=== PATIENT | male | born 1935 | race Caucasian/White ===

== ENCOUNTER 2016-07-15 09:53 | Outpatient (RCR) | payer MEDICARE ==
[~2016-07-15 09:53] MED LIST: AC325T PO; ASP325TEC PO; ATEN50TA PO; CEPH-507 PO; HYDR-3583 PO; LOSA25TA21 PO; LOSA25TA5 PO; LUTE1CAP4 PO; NIAC250T17 PO; NICIAN; PANT40TA3 PO; PNT40TEC PO; PRAV20TA3 PO; [UNRECOGNIZED DRUG - OTHER]
== END 2016-10-13 | disposition home or self-care (01) ==
LOC: DSME 09:53
PROVIDERS: ATTEND Internal Medicine
DX: E11.40 Type 2 diabetes mellitus with diabetic neuropathy, unspecified (principal); E11.65 Type 2 diabetes mellitus with hyperglycemia

== ENCOUNTER → 2017-03-16 | Outpatient (CLI) | payer MEDICARE ==
[~2017-03-16] MED LIST changes: +CATHETER FLUSH 10 ML SYR IV PRN; +REGADENOSON 0.4 MG/5 ML SYR (LEXISCAN) IV ONE
[2017-03-16 08:59] VITALS: BP 120/90
[2017-03-16 09:01] VITALS: BP 121/81
[2017-03-16 09:04] VITALS: BP 126/80
--- NOTE | 2017-03-17 12:26 | STRESS TEST ---
DATE OF SERVICE: 03/16/2017 RESTING AND POST REGADENOSON TECHNETIUM [address] IMAGING ORDERING PHYSICIAN: Dr. Luis. PRIMARY PHYSICIAN: Dr. Preciado. CLINICAL DIAGNOSES: Coronary artery disease, ischemic cardiomyopathy, hypertension, hyperlipidemia. Baseline images were carried out after injection of 10.71 mCi Technetium 99 Tetrofosmin. This was followed by 0.4 mg Regadenoson and 29.3 mCi Technetium 99 Tetrofosmin for stress imaging. The electrocardiogram showed sinus rhythm with old anteroseptal myocardial infarction at baseline. The electrocardiogram did not change significantly with the regadenoson infusion. The patient noted flushing and abdominal cramping following regadenoson infusion, which resolved in a few minutes of cessation of the injection. Review of images at rest and following stress shows a fairly large anteroapical perfusion defect. There is anteroapical akinesis. Left ventricular ejection fraction is calculated to be 35%. Left ventricular end diastolic volume is 71 mL. TID is absent (0.98). CONCLUSION: 1. This study indicates anteroapical infarction without significant ischemia. 2. Anteroapical akinesis. 3. Left ventricular ejection fraction is calculated to be 35%. Job ID: [id number] DocumentID: [id number] Dictated Date: 03/16/2017 10:30:05 Psychiatry Teacher Date: 03/16/2017 12:59:42 Dictated By: DORCAS LUIS MD, MA, FACP, FACC,
== END ==
LOC: CARD 07:28
PROVIDERS: ATTEND Internal Medicine Cardiovascular Disease
DX: I25.10 Atherosclerotic heart disease of native coronary artery without angina pectoris (principal); I65.23 Occlusion and stenosis of bilateral carotid arteries; I10 Essential (primary) hypertension; E78.4 Other hyperlipidemia; I25.5 Ischemic cardiomyopathy; Z72.0 Tobacco use
CPT/HCPCS: 78452; 93017

== ENCOUNTER → 2017-03-27 | Outpatient (CLI) | payer MEDICARE ==
[~2017-03-27] MED LIST changes: -CATHETER FLUSH 10 ML SYR IV PRN; -REGADENOSON 0.4 MG/5 ML SYR (LEXISCAN) IV ONE
== END ==
LOC: CARD 13:57
PROVIDERS: ATTEND Internal Medicine Cardiovascular Disease
DX: I25.10 Atherosclerotic heart disease of native coronary artery without angina pectoris (principal); I65.23 Occlusion and stenosis of bilateral carotid arteries; I10 Essential (primary) hypertension; I25.5 Ischemic cardiomyopathy; E78.4 Other hyperlipidemia; Z72.0 Tobacco use
CPT/HCPCS: 93306

== ENCOUNTER → 2017-08-03 | Outpatient (CLI) | payer MEDICARE ==
--- NOTE | 2017-08-03 10:28 | Diagnostic Imaging Report ---
PROCEDURE: CT abdomen and pelvis without contrast. TECHNIQUE: Multiple contiguous axial images were obtained through the abdomen and pelvis without the use of intravenous contrast. INDICATION: Hematuria. Comparison is made to study of 02/21/2012. FINDINGS: Unenhanced images of the liver, gallbladder and spleen are stable and unremarkable. There is diffuse fatty infiltration throughout the pancreas without evidence of inflammation or pancreatic mass. Adrenal glands are also stable and unremarkable. Multiple nonobstructing renal calculi are again seen, bilaterally. Largest stones are in the inferior poles measuring up to 0.6 cm in size. There is no evidence of hydronephrosis. No ureteric stone is seen. The appendix has a normal appearance. There is moderate aortoiliac atherosclerotic calcification. No free fluid is seen in the abdomen or pelvis. There is an irregular mural based lesion along the left bladder wall reaching approximately 3.5 x 1.6 cm. Calcification is again noted within the prostate gland. IMPRESSION: Persistent nonobstructing bilateral renal calculi without evidence of ureteric stone. Eccentric filling defect within the urinary bladder to the left of midline and is highly suspicious for mucosal tumor. Hematoma could have this appearance, however, consideration should be given to cystoscopy and possible biopsy. Dictated by: Dictated on workstation # [id number]
== END ==
LOC: RAD 09:23
PROVIDERS: ATTEND Urology
DX: N20.0 Calculus of kidney (principal)
CPT/HCPCS: 74176

== ENCOUNTER 2017-08-11 05:34 | Outpatient (CLI) | payer MEDICARE ==
[~2017-08-11] VITALS: Ht 162.6 cm; Wt 66.2 kg
[2017-08-11] MEDS ORDERED: ASPI-808 PO (12:46)
[2017-08-11] MEDS ORDERED: LUTE1CAP4 PO (12:46)
== END 2017-08-11 12:56 ==
LOC: PREOP 05:34
PROVIDERS: ATTEND Urology
DX: Z01.818 Encounter for other preprocedural examination (principal); D49.4 Neoplasm of unspecified behavior of bladder

== ENCOUNTER 2017-08-15 06:50 | Day surgery (SDC) | payer MEDICARE ==
[~2017-08-15] VITALS: Ht 162.6 cm; Wt 66.2 kg
[~2017-08-15 06:50] MED LIST changes: +ASPI-808 PO
--- OUTSIDE RECORDS SUMMARY | 2017-08-15 06:54 | XMS REPORT | Continuity of Care Document ---
Author Author [facility] Organization [facility] Address Unknown Phone Unavailable Allergies Active Description Code Type Severity Reaction Onset Reported/Identified Relationship to Patient Clinical Status Yes No Known Drug Allergies [id number] Drug Allergy Unknown N/A 02/21/2012 Medications There is no data. Problems Date Dx Coded Attending Type Code Diagnosis Diagnosed By 01/13/2010 Ot 562.10 01/13/2010 Ot V12.72 01/13/2010 Ot V67.09 02/21/2012 Ot 567.9 PERITONITIS NOS 02/21/2012 Ot 789.05 ABDOMINAL PAIN, PERIUMBILIC 04/03/2012 Ot 553.1 UMBILICAL HERNIA 04/03/2012 Ot 568.0 PERITONEAL AIYEPAUWK-LQMR-YE/INF 09/09/2012 Ot 272.4 HYPERLIPIDEMIA NEC/NOS 09/09/2012 Ot 342.90 UNSPEC HEMIPLEGIA HEMIPARESIS UNSPEC S 09/09/2012 Ot 414.01 CORONARY ATHEROSCLEROSIS OF [place] CORON 09/09/2012 Ot 428.0 CONGESTIVE HEART FAILURE NOS 09/09/2012 Ot 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 ARTERY OCCLUSION W O CEREBRAL IN 09/09/2012 Ot 434.91 CEREBRAL ART OCCLUSION NOS W CEREBRAL IN 09/09/2012 Ot 458.29 OTHER IATROGENIC HYPOTENSION 09/09/2012 Ot 715.90 OSTEOARTHROS NOS-UNSPEC 09/09/2012 Ot 781.94 FACIAL WEAKNESS 09/09/2012 Ot 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 09/09/2012 Ot V15.82 HISTORY OF TOBACCO USE 09/14/2012 Ot 277.7 DYSMETABOLIC SYNDROME X 09/14/2012 Ot 401.9 HYPERTENSION NOS 09/14/2012 Ot 414.01 CORONARY ATHEROSCLEROSIS OF [place] CORON 09/14/2012 Ot 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 DIS NEC 09/14/2012 Ot 428.0 CONGESTIVE HEART FAILURE NOS 09/14/2012 Ot 438.20 LATE EFF- CEREBR DIS,HEMIPLEGIA AFFECTING 09/14/2012 Ot 438.89 OTH LATE EFFECT-CEREBROVASCULAR DISEASE 09/14/2012 Ot 530.81 ESOPHAGEAL REFLUX 09/14/2012 Ot 564.00 UNSPEC CONSTIPATION 09/14/2012 Ot 781.2 ABNORMALITY OF GAIT 09/14/2012 Ot 790.29 OTHER ABNORMAL GLUCOSE 09/14/2012 Ot V57.1 PHYSICAL THERAPY NEC 09/14/2012 Ot V57.21 ENCOUNTER FOR OCCUPATIONAL THERAPY 12/20/2012 ROSANGELA DEMARCO MD Ot 438.89 OTH LATE EFFECT-CEREBROVASCULAR DISEASE 12/20/2012 ROSANGELA DEMARCO MD Ot 728.87 MUSCLE WEAKNESS (GENERALIZED) 12/20/2012 ROSANGELA DEMARCO MD Ot V57.21 ENCOUNTER FOR OCCUPATIONAL THERAPY 01/30/2013 ROSANGELA DEMARCO MD Ot 438.89 OTH LATE EFFECT-CEREBROVASCULAR DISEASE 01/30/2013 ROSANGELA DEMARCO MD Ot 728.87 MUSCLE WEAKNESS (GENERALIZED) 01/30/2013 ROSANGELA DEMARCO MD Ot V57.21 ENCOUNTER FOR OCCUPATIONAL THERAPY 09/15/2014 Ot 592.0 09/15/2014 Ot 433.10 09/15/2014 Ot 412 09/15/2014 Ot 414.00 09/15/2014 Ot 397.0 09/15/2014 Ot 424.0 09/15/2014 Ot 425.4 09/15/2014 Ot 553.1 09/15/2014 Ot V72.81 09/15/2014 Ot V74.8 09/15/2014 Ot 433.10 09/15/2014 Ot 433.30 09/15/2014 Ot 433.10 09/15/2014 Ot 786.05 09/15/2014 Ot V72.63 09/15/2014 Ot V72.83 09/15/2014 Ot V74.8 10/14/2014 BAIMA, AUBREY L POLICEW[employer]AN Ot 272.4 10/14/2014 BAIMA, AUBREY L POLICEWOMAN Ot 305.1 10/14/2014 BAIMA, AUBREY L POLICEWOMAN Ot 401.9 10/14/2014 BAIMA, AUBREY L POLICEWOMAN Ot 414.00 10/14/2014 BAIMA, AUBREY L POLICEWOMAN Ot 414.8 10/14/2014 BAIMA, AUBREY L POLICEWOMAN Ot 433.10 10/31/2014 BAIMA, AUBREY L POLICEWOMAN Ot 272.4 10/31/2014 BAIMA, AUBREY L POLICEWOMAN Ot 305.1 10/31/2014 BAIMA, AUBREY L POLICEWOMAN Ot 401.9 10/31/2014 BECKAUBREY POLICEWOMAN Ot 414.00 10/31/2014 BECKAUBREY Mena POLICEWOMAN Ot 414.8 10/31/2014 AUBREY SOLARES POLICEWOMAN Ot 433.10 01/02/2015 TARAN CARRENO MD Ot 562.10 DIVERTICULOSIS COLON (W/O MENT OF HEMORR 01/02/2015 TARAN CARRENO MD Ot 569.0 ANAL RECTAL POLYP 01/02/2015 TARAN CARRENO MD Ot V16.0 FAMILY HX-GI MALIGNANCY 01/02/2015 TARAN CARRENO MD, Ot V76.51 SCREEN MAL NEOP-COLON 06/25/2015 ROSANGELA DEMARCO MD, Ot A41.51 SEPSIS DUE TO ESCHERICHIA COLI [E. COLI] 06/25/2015 ROSANGELA DEMARCO MD, Ot E86.0 DEHYDRATION 06/25/2015 ROSANGELA DEMARCO MD Ot F17.200 NICOTINE DEPENDENCE, UNSPECIFIED, UNCOMP 06/25/2015 ROSANGELA DEMARCO MD Ot I12.9 HYPERTENSIVE CHRONIC KIDNEY DISEASE W ST 06/25/2015 ROSANGELA DEMARCO MD, Ot I25.2 OLD MYOCARDIAL INFARCTION 06/25/2015 ROSANGELA DEMARCO MD, Ot I42.9 CARDIOMYOPATHY, UNSPECIFIED 06/25/2015 ROSANGELA DEMARCO MD, Ot I73.9 PERIPHERAL VASCULAR DISEASE, UNSPECIFIED 06/25/2015 ROSANGELA DEMARCO MD, Ot K21.9 GASTRO-ESOPHAGEAL REFLUX DISEASE WITHOUT 06/25/2015 ROSANGELA DEMARCO MD, Ot N17.9 ACUTE KIDNEY FAILURE, UNSPECIFIED 06/25/2015 ROSANGELA DEMARCO MD, Ot N18.9 CHRONIC KIDNEY DISEASE, UNSPECIFIED 06/25/2015 ROSANGELA DEMARCO MD Ot N30.00 ACUTE CYSTITIS WITHOUT HEMATURIA 06/25/2015 ROSANGELA DEMARCO MD, Ot S50.02XA CONTUSION OF LEFT ELBOW, INITIAL ENCOUNT 06/25/2015 ROSANGELA DEMARCO MD Ot W19.XXXA UNSPECIFIED FALL, INITIAL ENCOUNTER 06/25/2015 ROSANGELA DEMARCO MD Ot Y92.002 BATHRM OF [facility] NON-INSTITUT RESDNCE SNGL 06/25/2015 ROSANGELA DEMARCO MD, Ot Z86.73 PRSNL HX OF TIA (TIA), AND CEREB INFRC W 08/24/2015 ROSANGELA DEMARCO MD, Ot N39.0 07/15/2016 Ot 397.0 TRICUSPID VALVE DISEASE 07/15/2016 Ot 424.0 MITRAL VALVE DISORDER 07/15/2016 Ot 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.4 PRIM CARDIOMYOPATHY NEC 07/15/2016 Ot 553.1 UMBILICAL HERNIA 07/15/2016 Ot V72.81 EXAM-PRE- OPERATIVE CARDIOVASCULAR 07/15/2016 Ot V74.8 SCREEN- BACTERIAL DIS NEC 07/15/2016 Ot 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 ARTERY OCCLUSION W O CEREBRAL IN 07/15/2016 Ot 433.30 MULT BILTRAL ARTERY OCCLUSION WO CEREBRA 07/15/2016 Ot 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 ARTERY OCCLUSION W O CEREBRAL IN 07/15/2016 Ot 786.05 SHORTNESS OF BREATH 07/15/2016 Ot V72.63 PRE- PROCEDURAL LABORATORY EXAMINATION 07/15/2016 Ot V72.83 EXAM PRE- OPERATIVE NEC 07/15/2016 Ot V74.8 SCREEN- BACTERIAL DIS NEC 07/15/2016 BAIMA, AUBREY L [employer] Ot 272.4 HYPERLIPIDEMIA NEC/NOS 07/15/2016 BAIMA, AUBREY L [employer] Ot 305.1 TOBACCO USE DISORDER 07/15/2016 BAIMA, AUBREY L [employer] Ot 401.9 HYPERTENSION NOS 07/15/2016 BAIMA, AUBREY L [employer] Ot 414.00 CORON ATHEROSCLER NOS TYPE VESSEL, NATIV 07/15/2016 BAIMA, AUBREY L [employer] Ot 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 DIS NEC 07/15/2016 BAIMA, AUBREY L [employer] Ot 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 ARTERY OCCLUSION W O CEREBRAL IN 07/15/2016 WAI GAVIN, TARAN Ot V72.84 EXAM PRE-OPERATIVE NOS 07/15/2016 NILAM GAVIN, ROSANGELA Connors Ot N39.0 URINARY TRACT INFECTION, SITE NOT SPECIF 07/15/2016 Ot 397.0 TRICUSPID VALVE DISEASE 07/15/2016 Ot 424.0 MITRAL VALVE DISORDER 07/15/2016 Ot 425.4 PRIM CARDIOMYOPATHY NEC 07/15/2016 Ot 553.1 UMBILICAL HERNIA 07/15/2016 Ot V72.81 EXAM-PRE- OPERATIVE CARDIOVASCULAR 07/15/2016 Ot V74.8 SCREEN- BACTERIAL DIS NEC 07/15/2016 Ot 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 ARTERY OCCLUSION W O CEREBRAL IN 07/15/2016 Ot 433.30 MULT BILTRAL ARTERY OCCLUSION WO CEREBRA 07/15/2016 Ot 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 ARTERY OCCLUSION W O CEREBRAL IN 07/15/2016 Ot 786.05 SHORTNESS OF BREATH 07/15/2016 Ot V72.63 PRE- PROCEDURAL LABORATORY EXAMINATION 07/15/2016 Ot V72.83 EXAM PRE- OPERATIVE NEC 07/15/2016 Ot V74.8 SCREEN- BACTERIAL DIS NEC 07/15/2016 BAIAUBREY KENYON L POLICEWOMAN Ot 272.4 HYPERLIPIDEMIA NEC/NOS 07/15/2016 BAIKOSTAS AUBREY L POLICEWOMAN Ot 305.1 TOBACCO USE DISORDER 07/15/2016 BAIKOSTAS AUBREY L POLICEW[employer]AN Ot 401.9 HYPERTENSION NOS 07/15/2016 BAIMA AUBREY L [employer] Ot 414.00 CORON ATHEROSCLER NOS TYPE VESSEL, NATIV 07/15/2016 BAIKOSTAS AUBREY L POLICEW[employer]AN Ot 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 DIS NEC 07/15/2016 BAIKOSTAS AUBREY L POLICEWOMAN Ot 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 ARTERY OCCLUSION W O CEREBRAL IN 07/15/2016 WAI GAVIN, TARAN Ot V72.84 EXAM PRE-OPERATIVE NOS 07/15/2016 ROSANGELA DEMARCO MD, Ot N39.0 URINARY TRACT INFECTION, SITE NOT SPECIF 09/06/2016 ROSANGELA DEMARCO MD Ot 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 N 09/06/2016 ROSANGELA DEMARCO MD, Ot E11.65 TYPE 2 DIABETES MELLITUS WITH HYPERGLYCE 10/03/2016 ROSANGELA DEMARCO MD, Ot 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 N 10/03/2016 ROSANGELA DEMARCO MD, Ot E11.65 TYPE 2 DIABETES MELLITUS WITH HYPERGLYCE 10/07/2016 ROSANGELA DEMARCO MD, Ot 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 N 10/07/2016 ROSANGELA DEMARCO MD, Ot E11.65 TYPE 2 DIABETES MELLITUS WITH HYPERGLYCE 10/13/2016 ROSANGELA DEMARCO MD, Ot 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 N 10/13/2016 ROSANGELA DEMARCO MD, Ot E11.65 TYPE 2 DIABETES MELLITUS WITH HYPERGLYCE 03/17/2017 MARIUSZ GAVIN FACC, DORCAS FACP CCDS Ot E78.4 OTHER HYPERLIPIDEMIA 03/17/2017 MARIUSZ GAVIN FACC, DORCAS FACP CCDS Ot I10 ESSENTIAL (PRIMARY) HYPERTENSION 03/17/2017 MARIUSZ GAVIN FACC, DORCAS FACP CCDS Ot I25.10 ATHSCL HEART DISEASE OF [place] CORONARY 03/17/2017 MARIUSZ AGVIN FACC, DORCAS FACP CCDS Ot I25.5 ISCHEMIC CARDIOMYOPATHY 03/17/2017 MARIUSZ GAVIN FACC, ALI FACP CCDS Ot I65.23 OCCLUSION AND STENOSIS OF [place] 03/17/2017 MARIUSZ GAVIN FACC, ALI FACP CCDS Ot Z72.0 TOBACCO USE 04/07/2017 MARIUSZ GAVIN FACC, ALI FACP CCDS Ot E78.4 OTHER HYPERLIPIDEMIA 04/07/2017 MARIUSZ GAVIN FACC, ALI FACP CCDS Ot I10 ESSENTIAL (PRIMARY) HYPERTENSION 04/07/2017 MARIUSZ GAVIN FACC, ALI FACP CCDS Ot I25.10 ATHSCL HEART DISEASE OF [place] CORONARY 04/07/2017 MARIUSZ GAVIN FACC, ALI FACP CCDS Ot I25.5 ISCHEMIC CARDIOMYOPATHY 04/07/2017 MARIUSZ GAVIN FACC, ALI FACP CCDS Ot I65.23 OCCLUSION AND STENOSIS OF [place] 04/07/2017 MARIUSZ VAZQUEZC, ALI FACP CCDS Ot Z72.0 TOBACCO USE 04/12/2017 MARIUSZ GAVIN FACC, ALI FACP CCDS Ot E78.4 OTHER HYPERLIPIDEMIA 04/12/2017 MARIUSZ GAVIN FACC, ALI FACP CCDS Ot I10 ESSENTIAL (PRIMARY) HYPERTENSION 04/12/2017 MARIUSZ VAZQUEZ, ALI FACP CCDS Ot I25.10 ATHSCL HEART DISEASE OF [place] CORONARY 04/12/2017 [facility] F[facility] CCDS Ot I25.5 ISCHEMIC CARDIOMYOPATHY 04/12/2017 MARIUSZ VAZQUEZC, ALI FACP CCDS Ot I65.23 OCCLUSION AND STENOSIS OF [place] 04/12/2017 MARIUSZ GAVIN FACC, ALI FACP CCDS Ot Z72.0 TOBACCO USE 04/19/2017 MARIUSZ GAVIN FACC, ALI FACP CCDS Ot E78.4 OTHER HYPERLIPIDEMIA 04/19/2017 MARIUSZ VAZQUEZ, ALI FACP CCDS Ot I10 ESSENTIAL (PRIMARY) HYPERTENSION 04/19/2017 MARIUSZ VAZQUEZ, ALI FACP CCDS Ot I25.10 ATHSCL HEART DISEASE OF [place] CORONARY 04/19/2017 MARIUSZ VAZQUEZC, ALI FACP CCDS Ot I25.5 ISCHEMIC CARDIOMYOPATHY 04/19/2017 MARIUSZ GAVIN FACC, ALI FACP CCDS Ot I65.23 OCCLUSION AND STENOSIS OF [place] 04/19/2017 MARIUSZ VAZQUEZC, ALI FACP CCDS Ot Z72.0 TOBACCO USE 05/01/2017 MARIUSZ VAZQUEZC, ALI FACP CCDS Ot E78.4 OTHER HYPERLIPIDEMIA 05/01/2017 MARIUSZ GAVIN FACC, ALI FACP CCDS Ot I10 ESSENTIAL (PRIMARY) HYPERTENSION 05/01/2017 MARIUSZ GAVIN FACC, ALI FACP CCDS Ot I25.10 ATHSCL HEART DISEASE OF [place] CORONARY 05/01/2017 MARIUSZ GAVIN FACC, ALI FACP CCDS Ot I25.5 ISCHEMIC CARDIOMYOPATHY 05/01/2017 MARIUSZ GAVIN FACLien, ALI FACP CCDS Ot I65.23 OCCLUSION AND STENOSIS OF [place] 05/01/2017 MARIUSZ GAVIN FACC, ALI FACP CCDS Ot Z72.0 TOBACCO USE 08/01/2017 Ot 553.1 UMBILICAL HERNIA 08/01/2017 Ot V72.81 EXAM-PRE- OPERATIVE CARDIOVASCULAR 08/01/2017 Ot V74.8 SCREEN- BACTERIAL DIS NEC 08/01/2017 Ot 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 ARTERY OCCLUSION W O CEREBRAL IN 08/01/2017 Ot 433.30 MULT BILTRAL ARTERY OCCLUSION WO CEREBRA 08/01/2017 Ot 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 ARTERY OCCLUSION W O CEREBRAL IN 08/01/2017 Ot 786.05 SHORTNESS OF BREATH 08/01/2017 Ot V72.63 PRE- PROCEDURAL LABORATORY EXAMINATION 08/01/2017 Ot V72.83 EXAM PRE- OPERATIVE NEC 08/01/2017 Ot V74.8 SCREEN- BACTERIAL DIS NEC 08/01/2017 BAIMA, AUBREY L POL[employer] Ot 272.4 HYPERLIPIDEMIA NEC/NOS 08/01/2017 BAIMA, AUBREY L POLICEWOMAN Ot 305.1 TOBACCO USE DISORDER 08/01/2017 BAIMA, AUBREY L POLICEW[employer]AN Ot 401.9 HYPERTENSION NOS 08/01/2017 BAIMA, AUBREY L POLICEW[employer]AN Ot 414.00 CORON ATHEROSCLER NOS TYPE VESSEL, NATIV 08/01/2017 BAIMA, AUBREY L POLICEW[employer]AN Ot 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 DIS NEC 08/01/2017 BAIMA, AUBREY L POLICEWOMAN Ot 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 ARTERY OCCLUSION W O CEREBRAL IN 08/01/2017 WAI GAVIN, TARAN Ot V72.84 EXAM PRE-OPERATIVE NOS 08/01/2017 NILAM GAVIN, ROSANGELA Connors Ot N39.0 URINARY TRACT INFECTION, SITE NOT SPECIF 08/01/2017 MARIUSZ GAVIN FACC, ALI FACP CCDS Ot E78.4 OTHER HYPERLIPIDEMIA 08/01/2017 MARIUSZ GAVIN FACC, ALI FACP CCDS Ot I10 ESSENTIAL (PRIMARY) HYPERTENSION 08/01/2017 MARIUSZ GAVIN FAC, ALI FACP CCDS Ot I25.10 ATHSCL HEART DISEASE OF [place] CORONARY 08/01/2017 MARIUSZ GAVIN FAC, ALI FACP CCDS Ot I25.5 ISCHEMIC CARDIOMYOPATHY 08/01/2017 MARIUSZ GAVIN FACC, ALI FACP CCDS Ot I65.23 OCCLUSION AND STENOSIS OF [place] 08/01/2017 MARIUSZ GAVIN FACC, ALI FACP CCDS Ot Z72.0 TOBACCO USE 08/01/2017 MARIUSZ GAVIN FACC, ALI FACP CCDS Ot E78.4 OTHER HYPERLIPIDEMIA 08/01/2017 MARIUSZ GAVIN FAC, ALI FACP CCDS Ot I10 ESSENTIAL (PRIMARY) HYPERTENSION 08/01/2017 MARIUSZ GAVIN FAC, ALI FACP CCDS Ot I25.10 ATHSCL HEART DISEASE OF [place] CORONARY 08/01/2017 MARIUSZ GAVIN FAC, ALI FACP CCDS Ot I25.5 ISCHEMIC CARDIOMYOPATHY 08/01/2017 MARIUSZ GAVIN FAC, ALI FACP CCDS Ot I65.23 OCCLUSION AND STENOSIS OF [place] 08/01/2017 MARIUSZ GAVIN [facility], ALI FACP CCDS Ot Z72.0 TOBACCO USE 08/04/2017 YRIS AVILA MD Ot N20.0 CALCULUS OF KIDNEY 08/04/2017 YRIS AVILA MD Ot N20.0 CALCULUS OF KIDNEY Procedures Code Description Performed By Performed On 00.21 INTRAVASCULAR IMAGING OF EXTRACRANIAL CE 09/05/2012 00.40 PROCEDURE ON SINGLE VESSEL 09/05/2012 38.12 HEAD NECK ENDARTER NEC 09/05/2012 38.32 HEAD/NECK VES RESEC-ANAS 09/05/2012 Results There is no data. Encounters ACCT No. Visit Date/Time Discharge Status Pt. Type Provider Facility Loc./Unit Complaint [id number] 08/11/2017 05:34:00 08/11/2017 12:56:00 DIS Outpatient YRIS AVILA MD [facility] PREOP LARGE BLADDER TUMOR [id number] 08/03/2017 09:23:00 08/03/2017 23:59:59 CLS Outpatient YRIS AVILA MD [facility] RAD GROSS HEMATURIA [id number] 03/27/2017 13:57:00 03/27/2017 23:59:59 CLS Outpatient DORCAS VEE MD, FACC, FACP CCDS [facility] CARD CAD [id number] 03/16/2017 07:28:00 03/16/2017 23:59:59 CLS Outpatient DORCAS VEE MD, FACC, FACP CCDS [facility] CARD CAD [id number] 10/14/2016 10:00:00 10/14/2016 23:59:59 CLS Preadmit ROSANGELA DEMARCO MD [facility] DSME TYPE 2 DIABETES [id number] 07/15/2016 09:53:00 09/06/2016 08:00:00 DIS [facility] [id number] 07/27/2015 14:11:00 07/27/2015 23:59:59 CLS Outpatient ROSANGELA DEMARCO MD [facility] LAB URINARY TRACT INFECTION, FREQUENCY,BURNING [id number] 06/22/2015 15:56:00 06/25/2015 16:00:00 DIS Inpatient ROSANGELA DEMARCO MD [facility] 4TH UTI,ARF [id number] 01/02/2015 08:29:00 01/02/2015 12:10:00 DIS Outpatient TARAN CARRENO MD [facility] FAMILY HX COLON CANCER [id number] 01/01/2015 06:12:00 01/01/2015 23:59:59 CLS Outpatient TARAN CARRENO MD [facility] PREOP FAMILY HX COLON CANCER [id number] 09/15/2014 10:46:00 09/15/2014 23:59:59 CLS Outpatient AUBREY SOLARES [facility] CARD CAD HTN HLE [id number] 12/28/2012 11:00:00 01/30/2013 17:00:00 DIS Outpatient ROSANGELA DEMARCO MD [facility] REHAB RT CAROTID STENOSIS [id number] 12/19/2012 14:15:00 12/20/2012 00:01:00 DIS Outpatient ROSANGELA DEMARCO MD [facility] REHAB RT CAROTID STENOSIS [id number] 08/15/2017 06:50:00 ACT Outpatient AUSTIN MD, YRIS [facility] LARGE BLADDER TUMOR [id number] 09/09/2012 10:55:00 Document Registration [id number] 09/05/2012 06:05:00 Document Registration [id number] 08/31/2012 13:15:00 Document Registration [id number] 08/20/2012 10:37:00 Document Registration [id number] 04/03/2012 05:39:00 Document Registration [id number] 03/29/2012 10:43:00 Document Registration [id number] 02/21/2012 10:10:00 Document Registration [id number] 02/08/2012 12:15:00 Document Registration [id number] 06/28/2010 09:50:00 Document Registration [id number] 05/14/2010 09:48:00 Document Registration [id number] 01/13/2010 10:00:00 Document Registration [id number] 04/08/2009 15:45:00 Document Registration
[2017-08-15 07:15] VITALS: BP 121/81
[2017-08-15] MEDS: LACTATED RINGERS 1,000 ML IV PRN ×2 (07:15→08:21)
[2017-08-15] MEDS ORDERED: cefTRIAXone INJECTION 1,000 MG in NS (IVPB) 100 ML IV ONE (07:45)
[2017-08-15] MEDS ORDERED: proPOfol 200 MG/20 ML (DIPRIVAN) VIAL IV ONE (08:13)
[2017-08-15] MEDS ORDERED: fentaNYL INJECTION 100 MCG/2 ML AMP ONE (08:13)
[2017-08-15] MEDS ORDERED: ONDANSETRON 4 MG/2 ML (SDV) Z0FRAN ONE (08:13)
[2017-08-15] MEDS ORDERED: SEVOFLURANE (ULTANE) 15 ML INHAL SOLN ONE ×4 (08:13→08:48)
--- NOTE | 2017-08-15 08:15 | Progress Note-Pre Operative ---
Pre-Operative Progress Note H&P Reviewed The H&P was reviewed, patient examined and no changes noted. Date Seen by Provider: Aug 15, 2017 Time Seen by Provider: 08:14 Date H&P Reviewed: Aug 15, 2017 Time H&P Reviewed: 08:15 Pre-Operative Diagnosis: LARGE BLADDER TUMOR LEFT WALL YRIS AVILA MD Aug 15, 2017 8:15 am
--- NOTE | 2017-08-15 08:17 | Progress Note-Post Operative ---
Post-Operative Progess Note Surgeon (s)/Staff Genetic Counselor (s) Surgeon YRIS AVILA MD Staff Genetic Counselor: N/A Pre-Operative Diagnosis LARGE BLADDER TUMOR LEFT ANTERIOR WALL Post-Operative Diagnosis SAME Procedure & Operative Findings Date of Procedure 08/15/17 Procedure Performed/Findings TURBT Anesthesia Type GENERAL Estimated Blood Loss Estimated blood loss (mL): LESS THAN 50CC Specimens/Packing Specimens Removed BLADDER TUMOR CHIPS AND BASE Packing: N/A YRIS AVILA MD Aug 15, 2017 8:16 am
--- NOTE | 2017-08-15 08:18 | Discharge Inst-Urology ---
Discharge Inst-Urology Discharge Medications New, Converted, or Re-newed RX: RX on Chart Patient Instructions/Follow Up Plan Please make appointment to been seen in office in 2 weeks. May resume ASA in 48 hours if no bleedings Increase oral fluids for 48 hours and then as needed. Diet and Activity as tolerated. If questions or concerns contact your physician Or seek help at emergency department. YRIS AVILA MD Aug 15, 2017 8:18 am
[2017-08-15] MEDS ORDERED: LIDOCAINE PF 2% 5 ML (XYLOCAINE) VIAL ONE (08:53)
[2017-08-15] MEDS ORDERED: ROCURONIUM 10 MG/ML 5 ML SYRINGE IV ONE (09:01)
[2017-08-15] MEDS ORDERED: ONDANSETRON 4 MG/2 ML (SDV) Z0FRAN IVP PRN (09:15)
[2017-08-15] MEDS ORDERED: morphine INJ 10 MG/ML 1ML (SYR OR VIAL) IVP PRN (09:15)
[2017-08-15] MEDS ORDERED: MEPERIDINE (DEMEROL) INJ 50 MG/ML IVP PRN (09:15)
[2017-08-15] MEDS ORDERED: PHEN-640 PO (09:48)
[2017-08-15] MEDS ORDERED: CIPR-225 PO (09:48)
[2017-08-15 09:55] VITALS: BP 127/76
[2017-08-15] MEDS ORDERED: PHENAZOPYRIDINE 100 MG (PYRIDIUM) TABLET ONE (10:14)
[2017-08-15 10:25] VITALS: BP 133/73
[2017-08-15] MEDS ORDERED: PHENAZOPYRIDINE 100 MG (PYRIDIUM) TABLET PO NR (10:30)
[2017-08-15 10:50] VITALS: BP 133/73
[2017-08-15 10:55] VITALS: BP 127/76
--- NOTE | 2017-08-15 13:37 | OPERATIVE REPORT ---
DATE OF SERVICE: 08/15/2017 PREOPERATIVE DIAGNOSIS: Large bladder tumor, left anterior wall. POSTOPERATIVE DIAGNOSIS: Large bladder tumor, left anterior wall. OPERATION PERFORMED: Transurethral resection of bladder tumor. SURGEON: Dangelo Avila MD ANESTHESIA: General. COMPLICATIONS: None. PROCEDURE: Under satisfactory general anesthesia, the patient in lithotomy position, genitalia were prepped and draped in the usual sterile fashion. Urethra was dilated with [place] sound to #28 to accommodate a 27-Faro[place] Murphy resectoscope. Again visualized a single large bladder tumor at the anterior wall on the left side was completely resected and two good bites from the base were obtained without perforating. Bleeders were cauterized and hemostasis was complete. There was no need to leave a catheter. The bladder was evacuated and the resectoscope was removed. The patient tolerated the procedure and anesthesia well and was sent to recovery room in stable condition. ESTIMATED BLOOD LOSS: Less than 50 mL, none of which was replaced. Job ID: [id number] DocumentID: [id number] Dictated Date: 08/15/2017 09:21:37 Manager Reimbursement Date: 08/15/2017 13:36:13 Dictated By: DANGELO AVILA MD
== END 2017-08-15 11:00 | disposition home or self-care (01) ==
LOC: SDC 06:50
PROVIDERS: ATTEND Urology
DX: C67.3 Malignant neoplasm of anterior wall of bladder (principal); I25.10 Atherosclerotic heart disease of native coronary artery without angina pectoris; I10 Essential (primary) hypertension; E11.9 Type 2 diabetes mellitus without complications; N40.0 Benign prostatic hyperplasia without lower urinary tract symptoms; I69.354 Hemiplegia and hemiparesis following cerebral infarction affecting left non-dominant side; F17.290 Nicotine dependence, other tobacco product, uncomplicated; I25.2 Old myocardial infarction; Z79.82 Long term (current) use of aspirin; Z79.899 Other long term (current) drug therapy
CPT/HCPCS: 82962; 87081

== ENCOUNTER 2018-08-29 05:36 | Outpatient (CLI) | payer MEDICARE ==
[~2018-08-29] VITALS: Ht 162.6 cm; Wt 66.2 kg
[~2018-08-29 05:36] MED LIST changes: +CIPR-225 PO; -LOSA25TA21 PO; +LOSA25TA41 PO; +PHEN-640 PO
[2018-08-29] MEDS ORDERED: GLIM1TAB PO (14:55)
== END 2018-08-29 15:03 | disposition home or self-care (01) ==
LOC: PREOP 05:36
PROVIDERS: ATTEND Urology
DX: Z01.818 Encounter for other preprocedural examination (principal)

== ENCOUNTER 2018-09-04 05:54 | Day surgery (SDC) | payer MEDICARE ==
[~2018-09-04] VITALS: Ht 162.6 cm; Wt 66.2 kg
[~2018-09-04 05:54] MED LIST changes: +GLIM1TAB PO
[2018-09-04 06:15] VITALS: BP 134/76
[2018-09-04] MEDS ORDERED: LACTATED RINGERS 1,000 ML IV PRN (06:37)
[2018-09-04] MEDS ORDERED: ASPI-808 PO (06:43)
[2018-09-04] MEDS ORDERED: CATHETER FLUSH 10 ML SYR IV PRN (06:45)
[2018-09-04] MEDS ORDERED: ROCURONIUM 10 MG/ML 5 ML SYRINGE IV ONE (07:06)
[2018-09-04] MEDS ORDERED: SEVOFLURANE (ULTANE) 15 ML INHAL SOLN ONE ×2 (07:06→07:16)
[2018-09-04] MEDS ORDERED: fentaNYL INJECTION 100 MCG/2 ML AMP ONE (07:06)
[2018-09-04] MEDS ORDERED: LIDOCAINE PF 2% 5 ML (XYLOCAINE) VIAL ONE (07:06)
[2018-09-04] MEDS ORDERED: proPOfol 200 MG/20 ML (DIPRIVAN) VIAL IV ONE (07:06)
[2018-09-04] MEDS ORDERED: ONDANSETRON 4 MG/2 ML (SDV) Z0FRAN ONE (07:06)
--- NOTE | 2018-09-04 07:09 | Progress Note-Pre Operative ---
Pre-Operative Progress Note H&P Reviewed The H&P was reviewed, patient examined and no changes noted. Date Seen by Provider: Sep 04, 2018 Time Seen by Provider: 07:09 Date H&P Reviewed: Sep 04, 2018 Time H&P Reviewed: 07:09 Pre-Operative Diagnosis: MULTIPLE BLADDER TUMORS YRIS AVILA MD Sep 04, 2018 07:09
--- NOTE | 2018-09-04 07:10 | Progress Note-Post Operative ---
Post-Operative Progess Note Surgeon (s)/Gas Producer (s) Surgeon YRIS AVILA MD Gas Producer: NONE Pre-Operative Diagnosis MULTIPLE BLADDER TUMORS Post-Operative Diagnosis SAME Procedure & Operative Findings Date of Procedure 09/04/18 Procedure Performed/Findings TURBT'S Anesthesia Type GENERAL Estimated Blood Loss Estimated blood loss (mL): NEGLIGIBLE Specimens/Packing Specimens Removed BLADDER TUMORS Packing: NONE YRIS AVILA MD Sep 04, 2018 07:10
[2018-09-04] MEDS ORDERED: FAMOTIDINE 20MG/2ML IV (PEPCID) IV ONE (07:15)
[2018-09-04] MEDS: cefTRIAXone FOR IV USE 1,000 MG in WATER (STERILE) FOR INJECTION 10 ML IV ONE (07:38)
[2018-09-04] MEDS ORDERED: GLYCOPYRROLATE 0.2 MG/ML (ROBINUL) 2 ML VIAL ONE (07:56)
[2018-09-04] MEDS ORDERED: NEOSTIGMINE 1 MG/ML 5 ML SYRINGE ONE (07:56)
--- NOTE | 2018-09-04 08:07 | Discharge Inst-Urology ---
Discharge Inst-Urology Discharge Medications New, Converted, or Re-newed RX: RX on Chart Patient Instructions/Follow Up Plan Please make appointment to been seen in office in 2 weeks. In 48 hours, if no bleeding may resume ASA Increase oral fluids for 48 hours and then as needed. Diet and Activity as tolerated. If questions or concerns contact your physician Or seek help at emergency department. YRIS AVILA MD Sep 04, 2018 08:07
[2018-09-04] MEDS ORDERED: morphine INJ 10 MG/ML 1ML (SYR OR VIAL) IVP ONE (08:15)
[2018-09-04] MEDS ORDERED: ONDANSETRON 4 MG/2 ML (SDV) Z0FRAN IVP PRN (08:15)
[2018-09-04 08:40] VITALS: BP 107/75
[2018-09-04 08:45] VITALS: BP 107/75
[2018-09-04] MEDS ORDERED: CIPR-225 PO (08:49)
[2018-09-04 09:10] VITALS: BP 103/59
--- NOTE | 2018-09-04 09:17 | NUR ---
Initial visit with family. Offered compassionate presence and active listening. Family shared they are [employer] and appreciated our visit. No concerns at this time, but family may request follow up.
[2018-09-04 09:40] VITALS: BP 76/55
--- NOTE | 2018-09-04 10:45 | Anesthesia-General Post-Op ---
General Patient Condition Mental Status/LOC: Same as Preop Cardiovascular: Satisfactory Nausea/Vomiting: Absent Respiratory: Satisfactory Pain: Controlled Complications: Absent Post Op Complications Complications None Follow Up Care/Instructions Patient Instructions None needed. Anesthesia/Patient Condition Patient Condition Patient is doing well, no complaints, stable vital signs, no apparent adverse anesthesia problems. No complications reported per nursing. [place] [facility] [place] PHIL HUMMEL CRNA Sep 04, 2018 10:45
--- NOTE | 2018-09-04 12:48 | OPERATIVE REPORT ---
DATE OF SERVICE: 09/04/2018 PREOPERATIVE DIAGNOSIS: Multiple small bladder tumors. POSTOPERATIVE DIAGNOSIS: Multiple small bladder tumors. OPERATION PERFORMED: Transurethral cauterization and resection of bladder tumor. SURGEON: Yris Avila MD ANESTHESIA: General. COMPLICATIONS: None. DESCRIPTION OF PROCEDURE: Under satisfactory general anesthesia, the patient in lithotomy position, genitalia were prepped and draped in the usual sterile fashion. Urethra was dilated with Negar sound to #30 [place] easily to accommodate 27-[place] Murphy resectoscope. Again, visualized multiple small bladder tumors in the anterior wall on the left side. They were small and superficial, so I went ahead and cauterized them and then I obtained a cut from the base at two areas to rule out invasion. The bleeder was cauterized and hemostasis was complete. There was no further bladder tumor in the bladder. Bladder was emptied. The resectoscope was removed. The patient tolerated the procedure and anesthesia well and was sent to recovery room in stable condition. PLAN: If the tumor comes back superficial, we will resume again BCG weekly for six weeks. Job ID: [id number] DocumentID: [id number] Dictated Date: 09/04/2018 08:09:55 Signal Repairer Date: 09/04/2018 12:47:30 Dictated By: YRIS AVILA MD
== END 2018-09-04 10:05 | disposition home or self-care (01) ==
LOC: SDC 05:54
PROVIDERS: ATTEND Urology
DX: C67.3 Malignant neoplasm of anterior wall of bladder (principal); I25.10 Atherosclerotic heart disease of native coronary artery without angina pectoris; I10 Essential (primary) hypertension; E11.40 Type 2 diabetes mellitus with diabetic neuropathy, unspecified; K21.9 Gastro-esophageal reflux disease without esophagitis; K44.9 Diaphragmatic hernia without obstruction or gangrene; I25.2 Old myocardial infarction; Z87.891 Personal history of nicotine dependence; Z79.82 Long term (current) use of aspirin; Z79.84 Long term (current) use of oral hypoglycemic drugs; Z79.899 Other long term (current) drug therapy; Z86.73 Personal history of transient ischemic attack (TIA), and cerebral infarction without residual deficits
CPT/HCPCS: 82962; 87081

== ENCOUNTER → 2018-10-31 | Outpatient (CLI) | payer MEDICARE ==
--- NOTE | 2018-10-31 09:55 | Diagnostic Imaging Report ---
INDICATION: Cough. PA and lateral views of the chest were obtained. Comparison made with prior examination 06/22/2015. FINDINGS: The heart size, mediastinal configuration, and pulmonary vascularity are within normal limits. There is no pleural effusion, pneumothorax, or pneumonia. The osseous structures are unremarkable. IMPRESSION: No acute cardiopulmonary abnormality. Dictated by: Dictated on workstation # [id number]
== END ==
LOC: RAD 09:11
PROVIDERS: ATTEND Internal Medicine
DX: R05 Cough (principal)
CPT/HCPCS: 71046

== ENCOUNTER → 2019-05-14 | Outpatient (CLI) | payer MEDICARE ==
[~2019-05-14] VITALS: Ht 167 cm; Wt 74.0 kg
[~2019-05-14] MED LIST changes: +CATHETER FLUSH 10 ML SYR IV PRN; +REGADENOSON 0.4 MG/5 ML SYR (LEXISCAN) IV ONE
--- NOTE | 2019-05-20 09:54 | STRESS TEST ---
DATE OF SERVICE: 05/14/2019 RESTING AND POST REGADENOSON TECHNETIUM-99M TETROFOSMIN SPECT CT IMAGING ORDERING PHYSICIAN: Siena Joya APRN PRIMARY PHYSICIAN: Dr. Preciado. CLINICAL DIAGNOSES: Coronary artery disease, hypertension and hyperlipidemia. Baseline images were carried after injection of 10.9 mCi of technetium-99m Tetrofosmin. This was followed by 0.4 mg Regadenoson and 30.1 mCi of technetium-99m Tetrofosmin for stress imaging. The electrocardiogram showed sinus rhythm with evidence of anteroseptal myocardial infarction. The electrocardiogram did not change significantly with Regadenoson infusion. Review of images at rest and following stress indicates a fairly large apical perfusion defect that is fixed. Gated images show apical akinesis to dyskinesis. Left ventricular ejection fraction is calculated to be 40%. Left ventricular end diastolic volume is 61 mL. TID is absent (1.04). CONCLUSIONS: 1. Large apical infarct without significant ischemia. 2. Apical akinesis to dyskinesis. 3. Left ventricular ejection fraction is calculated to be 40%. Job ID: [id number] DocumentID: [id number] Dictated Date: 05/20/2019 08:49:42 Hr Administrative Assistant Date: 05/20/2019 09:36:10 Dictated By: DORCAS VEE MD, MA, FACP, FACC,
== END ==
LOC: CARD 11:30
PROVIDERS: ATTEND Nurse Practitioner Family
DX: I34.0 Nonrheumatic mitral (valve) insufficiency (principal); I11.9 Hypertensive heart disease without heart failure; I25.10 Atherosclerotic heart disease of native coronary artery without angina pectoris; I65.23 Occlusion and stenosis of bilateral carotid arteries; E78.5 Hyperlipidemia, unspecified
CPT/HCPCS: 78452; 93017; 93306

== ENCOUNTER → 2019-06-20 | Outpatient (CLI) | payer MEDICARE ==
[~2019-06-20] MED LIST changes: -CATHETER FLUSH 10 ML SYR IV PRN; -REGADENOSON 0.4 MG/5 ML SYR (LEXISCAN) IV ONE
--- NOTE | 2019-06-20 15:50 | Diagnostic Imaging Report ---
PROCEDURE: CT abdomen and pelvis without contrast. TECHNIQUE: Multiple contiguous axial images were obtained through the abdomen and pelvis without the use of intravenous contrast. Auto Exposure Controls were utilized during the CT exam to meet ALARA standards for radiation dose reduction. INDICATION: Bladder carcinoma, follow-up. COMPARISON: Comparison is made with prior CT from 08/03/2017. FINDINGS: The lung bases are clear. The liver and gallbladder are unremarkable. No biliary ductal dilatation is seen. There is fatty atrophy to the pancreas. The spleen is unremarkable. No adrenal mass is detected. Kidneys contain nonobstructing calculi, similar to prior exam. No ureteral calculi or hydronephrosis is seen. Aorta is heavily calcified and ectatic. No aneurysm is seen. Small and large bowel loops are normal caliber. There is no obstruction. There is diverticulosis of the sigmoid colon but no evidence of acute diverticulitis. The bladder is decompressed. The area of the mass involving the lateral wall of the bladder on the left is not as well-seen on today's exam. No free fluid or fluid collection is identified. No central, retroperitoneal or mesenteric lymphadenopathy is seen. No inguinal or iliac lymphadenopathy is detected. Bony structures are unremarkable. IMPRESSION: 1. Bilateral nonobstructing nephrolithiasis. 2. Uncomplicated diverticulosis. 3. Known bladder mass is not well evaluated on today's study due to decompression of the bladder. No abdominal or pelvic lymphadenopathy or evidence of metastatic disease is detected. Dictated by: Dictated on workstation # [id number]
== END ==
LOC: RAD 15:24
PROVIDERS: ATTEND Urology
DX: N20.0 Calculus of kidney (principal); K57.30 Diverticulosis of large intestine without perforation or abscess without bleeding; Z85.51 Personal history of malignant neoplasm of bladder
CPT/HCPCS: 74176

== ENCOUNTER 2019-11-25 05:35 | Outpatient (RCR) | payer MEDICARE ==
[~2019-11-25] VITALS: Ht 162.6 cm; Wt 74.8 kg
[~2019-11-25 05:35] MED LIST changes: -GLIM1TAB PO; +GLIM1TAB4 PO; +SULF1TAB35 PO
== END 2019-11-25 15:07 | disposition home or self-care (01) ==
LOC: PREOP 05:35
PROVIDERS: ATTEND Surgery
DX: Z01.818 Encounter for other preprocedural examination (principal); Z11.59 Encounter for screening for other viral diseases
CPT/HCPCS: 87635

== ENCOUNTER 2019-11-27 08:48 | Day surgery (SDC) | payer MEDICARE ==
[~2019-11-27] VITALS: Ht 162.6 cm; Wt 74.8 kg
[2019-11-27] MEDS ORDERED: ATROPINE 1.2 MG/3 ML (0.4 MG/ML) SYR INJ ONE ×2 (08:49→10:45)
[2019-11-27] MEDS ORDERED: LACTATED RINGERS 1,000 ML IV ONE ×2 (09:09→09:57)
[2019-11-27] MEDS: LACTATED RINGERS 1,000 ML IV PRN ×2 (09:15→10:00)
[2019-11-27] MEDS ORDERED: LIDOCAINE JELLY 2% 6 ML SYRINGE TOP ONE (09:30)
--- OUTSIDE RECORDS SUMMARY | 2019-11-27 09:30 | XMS REPORT ---
Author Author [facility] Address [address] [address] Care Team Providers Care Supervisor Cytology Name Role Phone ROSANGELA DEMARCO Unavailable TARAN CARRENO MD Unavailable Unavailable ANN-MARIE GAVIN, DONNELL Ching Unavailable Unavailable ALPA GAVIN, OMA Thomas Unavailable Unavailable AUGUST GAVIN, ALAN Dye Unavailable Unavailable AUGUST GAVIN, ALAN Dye Unavailable Unavailable ROSANGELA DEMARCO MD Unavailable Unavailable AUBREY SOLARES Unavailable Unavailable ROSANGELA DEMARCO MD Unavailable Unavailable JORGE ANDERSON, ELDON K Unavailable Unavailable MARIUSZ GAVIN FACC, DORCAS FACHeather CCDS Unavailable UnavailDONNELL Montana MD Unavailable Unavailable ROSANGELA DEMARCO PCP [place]USTIN GAVIN, YRIS Thomas Unavailable Unavailable ROSANGELA DEMARCO MD Unavailable Unavailable AUBREY REYNOLDS Unavailable Unavailable TARAN CARRENO MD Unavailable Unavailable Unavailable Unavailable Unavailable Unavailable Unavailable Unavailable Allergies Normalized Allergy Reported Date of Reaction(s) Care Provider Facility Allergy Type classification allergen Allergy Onset DA (22 Unclassified No Known Drug 02-21-2012 - no information OMA YUEN Not Available sources.) Allergies MD (96422) Medications Medication Ingredient Drug Dose Dates Status Sig Sig Care Class(es) (Normalized) (Original) Provid er no Aspirin no 08-12-19 Complete no Aspirin (no information (Aspirin Ec information 18 d information (A spirin Ec phone) (2 325 Mg) 325 325 Mg) 325 sources.) Mg Tabec, Mg Tabec, 325 Mg Oral 325 Mg Oral Every Evening Discontinued ciprofloxac Ciprofloxac Quinolone 500 mg 09-05-19 Complete take 1 Ciprofloxaci Yris in 500 mg in Antimicrobi 19 d tablet by n Hcl A oral tablet al mouth twice (Cipro) 500 [place] (3 daily Mg Tablet (no sources.) 500 Mg ORAL phone) Twice A Day 10 Tab 09/04/18 500 mg 08-15-2017 Completed no Ciproflo Yris A - inform xacin [place] 08-29-2018 ation Hcl (no (Cipro) phone) 500 Mg Tablet, 500 Mg Oral Twice A Day 08/15/17 Disconti nued glimepiride glimepiride Sulfonylure 1 mg Complete take 1 Glimep iride (no 1 mg oral a d tablet by 1 Mg Tablet phone) tablet (2 mouth once 1 Mg ORAL sources.) daily Daily no Lutein/Zeax no 08-12-19 Complete take 1 Lutein/Zeaxa (no information anthin information 18 d capsule by nthin phone) (2 (Lutein-Don mouth once (Lutein-Zeax sources.) xanthin daily anthin 25-5 25-5 Mg Mg Sfgl) 1 Sfgl) 1 Each Each Capsule, 1 Capsule, 1 Cap Oral Cap Oral Daily Discontinued no Pantoprazol no 40 mg Complete take 1 Pantoprazole (n o information e Sodium 40 information d tablet by Sodium 40 Mg phone) (2 Mg mouth once Tablet.dr 40 sources.) Tablet.dr daily Mg ORAL Daily phenazopyri Phenazopyri no 200 mg 08-16-19 Complete no P henazopyrid Yris dine dine information 18 - d information ine Hcl A hydrochlori 08-30-19 (Pyridium) [place] de 200 mg 19 200 Mg (no oral tablet Tablet, 1 phone) (2 Tab Oral sources.) Three Times A Day 08/15/17 Discontinued Problems Active Problems Problem Normalized Date Last Normalized Normalized Provider Fa cility Classification Problem(s) Recorded Problem Problem Sta tus Duration Residual Acquired Episodic Active GWENDOLYN HORNE Via codes; absence of MD Arzola unclassified other organs Hospital - (2 sources.) [place] ([address]) Anal and Anal and Episodic Active TAKAAKI KIDO , Not Avai lable rectal rectal polyp (00820) conditions (4 sources.) Coronary Atheroscleroti Chronic Active ALAN KOCH , Not Available atherosclerosi c heart (28539) s and other disease of heart disease [place] (23 sources.) coronary artery without angina pectoris Translations: [ OLD MYOCARDIAL INFARCTION, CHR ISCHEMIC HRT DIS NEC, CORONARY ATHEROSCLEROSI S OF [place] CORON, CORON ATHEROSCLER NOS TYPE VESSEL, NATIV, CHR ISCHEMIC HRT DIS NEC, ISCHEMIC CARDIOMYOPATHY , ATHSCL HEART DISEASE OF [place] CORONARY , OLD MYOCARDIAL INFARCTION] 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 , Not Available prostate (6 prostatic (49859) sources.) hyperplasia without lower urinary tract symptoms Calculus of Calculus of Episodic Active YRIS AVILA , Not Available urinary tract kidney (53529) (9 sources.) Lisa-; endo-; Cardiomyopathy Chronic Active AUBREY BAIMA Not Available and , unspecified (89105) myocarditis; Translations: cardiomyopathy [ PRIM (except that CARDIOMYOPATHY caused by NEC] tuberculosis or sexually transmitted disease) (6 sources.) Acute Cerebral Chronic Active DONNELL JACOBSEN Not Avail able cerebrovascula artery , () r disease (3 occlusion, sources.) unspecified with cerebral infarction Chronic kidney Chronic kidney Chronic Active ROSANGELA DEMARCO , Not Available disease (4 disease, (41337) sources.) unspecified Congestive Congestive Chronic Active DONNELL VILLEDANIP Not Av ailable heart failure; heart failure, , (68663) nonhypertensiv unspecified e (8 sources.) Translations: [ HEART FAILURE, UNSPECIFIED] Superficial Contusion of Episodic Active ROSANGELA DEMARCO , Not Available injury; left elbow, (71735) contusion (4 initial sources.) encounter Fluid and Dehydration Episodic Active ROSANGELA DEMARCO , Not Av ailable electrolyte (24437) disorders (4 sources.) Diverticulosis Diverticulosis Chronic Active TAKAAKI KIDO , Not Available and of colon (25389) diverticulitis (without (8 sources.) mention of hemorrhage) Translations: [ DVRTCLOS OF LG INT W/O PERFORATION OR AB] Other Dysmetabolic Chronic Active ALAN KOCH , Not A vailable nutritional; syndrome X (39594) endocrine; and metabolic disorders (3 sources.) Esophageal Esophageal Chronic Active ALAN KOCH , Not Av ailable disorders (14 reflux (77160) sources.) Translations: [ GASTRO-ESOPHAG EAL REFLUX DISEASE WITHOUT] Essential Essential Chronic Active ALAN KOCH , Not Avai lable hypertension (primary) (34521) (22 sources.) hypertension Translations: [ HYPERTENSION NOS] Unclassified Family history Episodic Active TAKAAKI KIDO , Not Available (13 sources.) of malignant (15768) neoplasm of gastrointestin al tract Translations: [ TOBACCO USE] Late effects Hemiplegia and Chronic Active ALAN KOCH , Not Available of hemiparesis (36761) cerebrovascula following r disease (17 cerebral sources.) infarction affecting left non-dominant side Translations: [ OTH LATE EFFECT-CEREBRO VASCULAR DISEASE, LATE EFF-CEREBR DIS,HEMIPLEGIA AFFECTING] Paralysis (3 Hemiplegia, Chronic Active DONNELL GUINNIP Not Available sources.) unspecified, , (78218) affecting unspecified side Hypertension Hypertensive Chronic Active ROSANGELA DEMARCO , No t Available with chronic kidney (23169) complications disease with and secondary stage 1 hypertension through stage (10 sources.) 4 chronic kidney disease, or unspecified chronic kidney disease Translations: [ HYPERTENSIVE HEART DISEASE WITHOUT HEART, HYPERTENSIVE HEART DISEASE WITH HEART FA] Other jail Episodic Active YRIS AUSTIN , Not Avai lable aftercare (13 (current) use (11370) sources.) of aspirin 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 , 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 (13 neoplasm of (44137) sources.) anterior wall of bladder Translations: [ MALIGNANT NEOPLASM OF BLADDER, UNSPECIFI] Cancer; other Malignant Chronic Active YRIS AUSTIN , [facility] and neoplasm of MD Arzola unspecified [facility] - primary (2 limb [place] sources.) (58741) Heart valve Mitral valve Chronic Active AUBREY BAIMA Not Available disorders (8 disorders (91255) sources.) Translations: [ TRICUSPID VALVE DISEASE, NONRHEUMATIC MITRAL (VALVE) INSUFFICIENC] Neoplasms of Neoplasm of Episodic Active YRIS AUSTIN , Not Available unspecified unspecified (29135) nature or behavior of uncertain bladder behavior (1 source.) Substance-rela Nicotine Chronic Active AUBREY BAIMA Not Available tania disorders dependence, (29172) (14 sources.) other tobacco product, uncomplicated Translations: [ TOBACCO USE DISORDER, NICOTINE DEPENDENCE, UNSPECIFIED, UNCOMP] Occlusion or Occlusion and Chronic Active DONNELL GUINNIP N ot Available stenosis of stenosis of , (91133) precerebral carotid artery arteries (24 without sources.) mention of cerebral infarction Translations: [ OCCLUSION AND STENOSIS OF BILATERAL CORNELL, MULT BILTRAL ARTERY OCCLUSION WO CEREBRA] Osteoarthritis Osteoarthrosis Chronic Active DONNELL GUINNIP Not Available (3 sources.) , unspecified , (82818) whether generalized or localized, site unspecified Disorders of Other and Chronic Active DONNELL GUINNIP Not A vailable lipid unspecified , (77733) metabolism (20 hyperlipidemia sources.) Translations: [ OTHER HYPERLIPIDEMIA , HYPERLIPIDEMIA , UNSPECIFIED, PURE HYPERCHOLESTER OLEMIA, UNSPECIFIED] Other Other long Episodic Active YRIS AVILA , Not Jalyn ilable aftercare (13 term (current) (18921) sources.) drug therapy Peripheral and Peripheral Chronic Active ROSANGELA DEMARCO , No t Available visceral vascular (47720) atherosclerosi disease, s (4 sources.) unspecified Cancer of Personal Episodic Active YRIS AVILA [facility] Via bladder (4 history of MD Arzola sources.) malignant Hospital - neoplasm of [place] bladder (10814) Screening and Personal Episodic Active DONNELL JACOBSEN Not A vailable history of history of , (90809) mental health tobacco use and substance Translations: abuse codes [ PERSONAL (10 sources.) HISTORY OF NICOTINE DEPENDENCE] Other Personal Episodic Active ROSANGELA NILAM , Not Avail able circulatory history of (08344) disease (11 transient sources.) ischemic attack (TIA), and cerebral infarction without residual deficits Unclassified Special Episodic Active TARAN CARRENO , Not A vailable (4 sources.) screening for (92001) malignant neoplasms of colon Diabetes Type 2 Chronic Active ROSANGELA DEMARCO , Not Avail able mellitus with diabetes (41518) complications mellitus with (13 sources.) diabetic neuropathy, unspecified Translations: [ TYPE 2 DIABETES MELLITUS WITH HYPERGLYCE, TYPE 2 DIABETES MELLITUS WITH HYPERGLYCE, TYPE 2 DIABETES W DIABETIC PERIPHERAL AN] Diabetes Type 2 Chronic Active YRIS AUSTIN , Not Avail able mellitus diabetes (48359) without mellitus complication without (6 sources.) complications Abdominal Umbilical Episodic Active OMA YUEN Not Avai lable hernia (11 hernia without , (28653) sources.) mention of obstruction or gangrene Translations: [ DIAPHRAGMATIC HERNIA WITHOUT OBSTRUCTION] Unclassified no information no information Active ROSANGELA CURTVU R [place] [facility] (2 sources.) [id number] [facility] (230[address]) Past or Other Problems Problem Normalized Date Last Normalized Normalized Provider Fa cility Classification Problem(s) Recorded Problem Problem Sta tus Duration Abdominal pain Abdominal Episodic Completed ELDON PATEL , DO No t Available (5 sources.) pain, (19017) periumbilic Other nervous Abnormality of Episodic Completed ALAN KOCH , Not Available system gait (54786) disorders (3 sources.) External Bathroom of no information no information ROSANGELA DEMARCO , Not Available Injury - Place unspecified (92376) of occurrence non-institutio (4 sources.) nal (private) residence single-family (private) house as the place of occurrence of the external cause Other Care involving Episodic Completed ALAN KOCH , Not Available aftercare (3 other physical MD (41292) sources.) therapy Other Constipation, Episodic Completed ALAN KOCH , Not Available gastrointestin unspecified (20487) al disorders (3 sources.) Other lower Cough Episodic Completed ROSANGELA DEMARCO [facility] Via respiratory MD Arzola disease (2 Hospital - sources.) [place] ([address]) Other Encounter for Episodic Completed ALAN KOCH , Not Available aftercare (9 occupational MD (92361) sources.) therapy Other Facial Episodic Completed DONNELL JACOBSEN Not Avail able connective weakness MD (27614) tissue disease (3 sources.) 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 no information YRIS AVILA , Not Available aftercare (5 (current) use MD (34466) sources.) of oral hypoglycemic drugs Other Muscle Episodic Completed ROSANGELA DEMARCO Not Avail able connective weakness (52458) tissue disease (generalized) (6 sources.) Diabetes Other abnormal Episodic Completed ALAN KOCH , Not Available mellitus glucose (23729) without complication (3 sources.) Complications Other Episodic Completed DONNELL JACOBSEN Not A vailable of surgical iatrogenic , (46696) procedures or hypotension medical care Translations: (5 sources.) [ IATROGENIC CEREBROVAS INFARC/HEMO] Other Peritoneal Episodic Completed OMA YUEN Not Jalyn ilable gastrointestin adhesions , (18661) al disorders (postoperative (3 sources.) ) (postinfection ) Immunizations Screening Episodic Completed OMA ALPA Not Available and screening examination , (78985) for infectious for other disease (6 specified sources.) bacterial and spirochetal diseases Septicemia (4 Sepsis due to no information no information ROSANGELA DEMARCO , Not Available sources.) Escherichia (65744) coli [E. coli] Other lower Shortness of Episodic Completed DONNELL JACOBSEN Not Available respiratory breath , (43868) disease (3 sources.) Diabetes Type 2 no information no information ROSANGELA DEMARCO Not Available mellitus with diabetes (78141) complications mellitus with (10 sources.) diabetic neuropathy, unspecified Translations: [ TYPE 2 DIABETES MELLITUS WITH HYPERGLYCE] External Unspecified no information no information ROSANGELA DEMARCO , Not Available Injury - Fall fall, initial MD (28331) (4 sources.) encounter Peritonitis Unspecified Episodic Completed ELDON PATEL , DO Not Available and intestinal peritonitis (29510) abscess (3 sources.) Procedures Procedure Normalized Procedure Procedure Result Performer Facility Date HEAD NECK ENDARTER NEC no information no name Not Jalyn ilable (77542) HEAD/NECK VES no information no name Not Available ( 45811) [facility] no information no name Not Avai lable (84809) OF EXTRACRANIAL CE Procedure on single no information no name Not Availa ble (32447) vessel 09-04-2018 Transurethral no information YRIS AVILA [facility] of bladder [facility] (60836) neoplasm Immunizations No Information Results Test Name Value Interpretation Reference Range Date Time Fa cility (Normalized) (Normalized) (Medline Reference) laboratory on 2019-11-25 Coronavirus Ab Negative (no code) 11-25-2019 PENDING LOC ATION Qn (S) 04:00-0400 [facility] (97106) capillary blood glucose measurement by glucometer (mass/volume) on 2018-09-04 Glucose 130 mg/dL (H) 60 - 125 mg/dL [place] [facility] [Mass/Vol] [facility] (49408) Vital Signs The data below is from unstructured sources Vital Response Date/Time Temperature Source Temporal 06/25/2015 1:43pm Pulse Rate (adult) 66 bpm (60 - 90) 06/25/2015 1:43pm Respiratory Rate 18 bpm (12 - 24) 06/25/2015 1:43pm O2 Sat by Pulse Oximetry 95 % (88 - 100) 06/25/2015 2:06pm Blood Pressure 111/68 mm Hg 06/25/2015 1:43pm Blood Pressure Mean 82 mm Hg 06/25/2015 1:43pm Pain Pain Intensity 0 2015 1:43pm Height (Feet) 5 feet 04/2016 5:29pm Height (Inches) 4.00 inches 06/22/2015 5:29pm Height (Centimeters) 148 cm 06/22/2015 1:00pm Height (Calculated Centimeters) 162. 708609 cm 06/22/2015 5:29pm Weight (Pounds) 155 pounds 06/22/2015 5:29pm Weight (Ounces) 5.9 oz 0 06/22/2015 5:29pm Weight (Calculated Grams) 86778.080 gm 06/22/2015 5:29pm Weight (Calculated Kilograms) 70.474 080 kilograms 06/22/2015 5:29pm Weight (Kilograms) 80 kg 06/22/2015 1:00pm Calculated BMI 26.60 04/2016 5:29pm Vital Response Date/Time Temperature Source Temporal 06/25/2015 1:43pm Pulse Rate (adult) 66 bpm (60 - 90) 06/25/2015 1:43pm Respiratory Rate 18 bpm (12 - 24) 06/25/2015 1:43pm O2 Sat by Pulse Oximetry 95 % (88 - 100) 06/25/2015 2:06pm Blood Pressure 111/68 mm Hg 06/25/2015 1:43pm Blood Pressure Mean 82 mm Hg 06/25/2015 1:43pm Pain Pain Intensity 0 2015 1:43pm Height 5 ft 4 in Weight 155 lb Body Mass Index 26.7 kg/m^2 Vital Response Date/Time Temperature (Fahrenheit) 97.1 degree s F (97.6 - 99.5) Temperature (Calculated Celsius) 36. 90587 degrees C (36.4 - 37.5) Temperature Source Tympanic Pulse Rate (adult) 53 bpm (60 - 90) Respiratory Rate 18 bpm (12 - 24) O2 Sat by Pulse Oximetry 92 % (88 - 100) Blood Pressure 116/69 mm Hg Blood Pressure Mean 98 mm Hg Pain Pain Intensity 0 Height (Feet) 5 feet Height (Inches) 4.00 inches Height (Calculated Centimeters) 162. 190371 cm Weight (Pounds) 155 pounds Weight (Calculated Grams) 22667.818 gm Weight (Calculated Kilograms) 70.306 818 kilograms Calculated BMI 26.60 Vital Response Date/Time Height (Feet) 5 feet 2:52pm Height (Inches) 4.00 inches 08/29/2018 2:52pm Height (Calculated Centimeters) 162. 058910 cm 08/29/2018 2:52pm Weight (Pounds) 146 pounds 08/29/2018 2:52pm Weight (Ounces) 0.0 oz 0 08/29/2018 2:52pm Weight (Calculated Grams) 65457.49 gm 08/29/2018 2:52pm Weight (Calculated Kilograms) 66.224 487 kilograms 08/29/2018 2:52pm Calculated BMI 25.1 08/11 2:52pm Vital Response Date/Time Temperature (Fahrenheit) 97.0 degree s F (97.6 - 99.5) 09/04/2018 9:40am Temperature (Calculated Celsius) 36. 97439 degrees C (36.4 - 37.5) 09/04/2018 9:40am Temperature Source Temporal 09/04/2018 9:40am Pulse Rate (adult) 52 bpm (60 - 90) 09/04/2018 9:40am Respiratory Rate 16 bpm (12 - 24) 09/04/2018 9:40am O2 Sat by Pulse Oximetry 95 % (88 - 100) 09/04/2018 9:40am Blood Pressure 76/55 mm Hg 09/04/2018 9:40am Blood Pressure Mean 86 mm Hg (65 - 110) 09/04/2018 8:45am Pain Numeric Pain Scale 0-No Pain 09/04/2018 10:00am Pain Intensity 0 2018 9:40am Height (Feet) 5 feet 6:15am Height (Inches) 4.00 inches 09/04/2018 6:15am Height (Calculated Centimeters) 162. 955499 cm 09/04/2018 6:15am Weight (Pounds) 146 pounds 09/04/2018 6:15am Weight (Ounces) 0.0 oz 0 09/04/2018 6:15am Weight (Calculated Grams) 67575.49 gm 09/04/2018 6:15am Weight (Calculated Kilograms) 66.224 487 kilograms 09/04/2018 6:15am Calculated BMI 25.1 08/11 6:15am Vital Response Date/Time Temperature (Fahrenheit) 97.0 degree s F (97.6 - 99.5) 09/04/2018 9:40am Temperature (Calculated Celsius) 36. 63423 degrees C (36.4 - 37.5) 09/04/2018 9:40am Temperature Source Temporal 09/04/2018 9:40am Pulse Rate (adult) 52 bpm (60 - 90) 09/04/2018 9:40am Respiratory Rate 16 bpm (12 - 24) 09/04/2018 9:40am O2 Sat by Pulse Oximetry 95 % (88 - 100) 09/04/2018 9:40am Blood Pressure 76/55 mm Hg 09/04/2018 9:40am Blood Pressure Mean 86 mm Hg (65 - 110) 09/04/2018 8:45am Pain Numeric Pain Scale 0-No Pain 09/04/2018 10:00am Pain Intensity 0 2018 9:40am Height (Feet) 5 feet 6:15am Height (Inches) 4.00 inches 09/04/2018 6:15am Height (Calculated Centimeters) 162. 563097 cm 09/04/2018 6:15am Weight (Pounds) 146 pounds 09/04/2018 6:15am Weight (Ounces) 0.0 oz 0 09/04/2018 6:15am Weight (Calculated Grams) 17261.49 gm 09/04/2018 6:15am Weight (Calculated Kilograms) 66.224 487 kilograms 09/04/2018 6:15am Calculated BMI 25.1 08/11 6:15am Interventions No Information Plan of Treatment The data below is from unstructured sources Prescriptions See Medication Section Discharge Date 06/25/15 4:00pm Disposition 01 HOME, SELF-CARE Instructions/Education Provided Feve r in Adults (ED) Forms Provided PDI Medical Prescriptions See Medication Section Referrals (Unspecified) - Reason(s) for Referral: follow up with Dr. Demarco on Monday at 1:30 p.m. Care Plan and Goals Discharge Date 08/29/18 3:03pm Prescriptions See Medication Section Discharge Date 09/04/18 10:05am Instructions/Education Provided ANES THESIA INSTRUCTIONS POSTOP Transurethral Resection of Bladder Tumor (DC) Prescriptions See Medication Section Discharge Date 09/04/18 10:05am Instructions/Education Provided ANES THESIA INSTRUCTIONS POSTOP Transurethral Resection of Bladder Tumor (DC) Prescriptions See Medication Section Goals No Information Social History The data below is from unstructured sources History Response Recorde d Date/Time Hx Family Cancer Y MOTHER, BROTHER- PROSTATE 09/09/12 11:39am Hx Family Cardiac Disorders Y 09/09/12 11:39am Hx Family Stroke Y FATHER, BROTHER 09/09/12 11:39am Hx Family Myocardial Infarction Y FA THER, BROTHERS 09/09/12 11:39am History Response Recorde d Date/Time Alcohol Use Occasionally Uses 09/09/12 11:39am Recreational Drug Use N 09/09/12 11:39am Recent Foreign Travel N 09/09/12 11:39am Recent Infectious Disease Exposure N 09/09/12 11:39am Hospitalization with Isolation Denies 09/09/12 11:39am Functional Status The data below is from unstructured sources Query Response Date Kvng rded Patient Orientation Person Time Situation June 23, 2015 2:11pm Patient Orientation Person Place Time Situation Eyes Open June 25, 2015 4:21pm Comprehension Ability Understands Co ncepts June 23, 2015 9:00pm No functional status information available. Mental Status No Information Encounters Encounter Normalized Encounter Encounter Diagnosis Care Provi avery Organization Date Type 09-04-2018 Admission to day no information YRIS AVILA Work no organization name - surgery Phone: 09-04-2018 09-05-2012 Evaluation and no information no name no organ ization name - management of 09-09-2012 inpatient 08-15-2017 Patient encounter no information no name no or ganization name - 08-15-2017 08-11-2017 Patient encounter no information no name no or ganization name - 08-11-2017 08-03-2017 Patient encounter no information no name no or ganization name 03-27-2017 Patient encounter no information no name no or ganization name 03-16-2017 Patient encounter no information no name no or ganization name 07-15-2016 Patient encounter no information no name no or ganization name - 10-13-2016 07-27-2015 Patient encounter no information no name no or ganization name 01-02-2015 Patient encounter no information no name no or ganization name - 01-02-2015 09-15-2014 Patient encounter no information no name no or ganization name 01-09-2013 Patient encounter no information no name no or ganization name - 01-30-2013 12-19-2012 Patient encounter no information no name no or ganization name - 12-20-2012 08-31-2012 Patient encounter no information no name no or ganization name 08-20-2012 Patient encounter no information no name no or ganization name 04-03-2012 Patient encounter no information no name no or ganization name - 04-03-2012 03-29-2012 Patient encounter no information no name no or ganization name 11-25-2019 Patient encounter no information TARAN CARRENO MD (n o [facility] - procedure phone) [facility] 11-25-2019 (no phone) 11-20-2019 Patient encounter no information TARAN CARRENO MD (n o [facility] procedure phone) [facility] (no phone) 06-26-2019 Patient encounter no information YRIS AVILA MD ( no [facility] - procedure phone) [facility] 06-26-2019 (no phone) 06-21-2019 Patient encounter no information no name no or ganization name - procedure 06-21-2019 06-20-2019 Patient encounter no information no name no or ganization name procedure 05-14-2019 Patient encounter no information no name no or ganization name procedure 10-31-2018 Patient encounter no information no name no or ganization name procedure 10-31-2018 Patient encounter no information no name no or ganization name procedure 09-04-2018 Patient encounter no information no name no or ganization name - procedure 09-04-2018 08-29-2018 Patient encounter no information YRIS AVILA Work no organization name - procedure Phone: 08-29-2018 YRIS AVILA 10-14-2016 Patient encounter no information no name no or ganization name procedure 02-08-2012 Patient encounter no information no name no or ganization name procedure no information Encounter for other no name no organiz ation name preprocedural examination no information Pre-operative no name no organization name examination, unspecified no information Other specified no name no organizatio n name pre-operative examination no information Pre-procedural no name no organization name laboratory examination no information Pre-operative no name no organization name cardiovascular examination Medical Equipment No Information Payers Normalized Payer Value Medicare [id number] ([id number]) Advance Directives Directive Response Recor ded Date/Time Advance Directives Yes 0 06/22/15 5:13pm Health Care Power of [employer] [place] Yes 06/22/15 5:13pm Organ Donor No 06/22/15 5:13pm Directive Response Recor ded Date/Time Advance Directives Yes 0 06/22/15 5:13pm Health Care Power of [place] Yes 06/22/15 5:13pm Organ Donor No 06/22/15 5:13pm Resuscitation Status Full Code 06/22/15 5:13pm Directive Response Recor ded Date/Time Advance Directives Yes 0 01/02/15 8:45am Health Care Power of [place] Yes 01/02/15 8:45am Organ Donor No 01/02/15 8:45am Resuscitation Status Full Code 01/02/15 8:45am Directive Response Recor ded Date Advance Directives Y 11:16am Health Care Power of [employer] Y 09/09/12 11:16am Organ Donor N 09/09/12 1 1:16am Directive Response Recor ded Date/Time Advance Directives Yes 0 08/29/18 2:52pm Health Care Power of [employer] [place] Yes 08/29/18 2:52pm Organ Donor No 08/29/18 2:52pm Resuscitation Status Full Code 08/29/18 2:52pm Directive Response Recor ded Date/Time Advance Directives Yes 0 09/04/18 6:15am Health Care Power of [employer] Yes 09/04/18 6:15am Organ Donor No 09/04/18 6:15am Resuscitation Status Full Code 09/04/18 6:15am Discharge Instructions No hospital discharge instruction information available.No hospital discharge instructions.No hospital discharge instructions.No hospital discharge instruction information available.No hospital discharge instructions.No hospital discharge instruction information available.No hospital discharge instruction information available. Additional Source Comments This clinical document has been generated using [employer] software that has been certified by the Office of the National Coordinator for Health Information Technology (ONC 15.99.04.3023.Diam.[id number]) and the National Committee for Accredited [employer] (NCQA, as an eMeasure certified technology). FOR RECORDS PERTAINING TO PATIENTS WHO ARE OR HAVE BEEN ENROLLED IN A CHEMICAL D EPENDENCY/SUBSTANCE ABUSE PROGRAM, SOME INFORMATION MAY BE OMITTED. This clinica l summary was aggregated from multiple sources. Caution should be exercised in using it in the provision of clinical care. This summary normalizes information from multiple sources, and as a consequence, information in this document may ma terially change the coding, format and clinical context of patient data. In jodi tion, data may be omitted in some cases. CLINICAL DECISIONS SHOULD BE BASED ON T HE PRIMARY CLINICAL RECORDS. [facility] [employer] [facility]. provides no warranty or guara ntee of the accuracy or completeness of information in this document.The followi ng information is based on time limited clinical information
--- OUTSIDE RECORDS SUMMARY | 2019-11-27 09:31 | XMS REPORT | Continuity of Care Document ---
Author Organization Unknown Address Unknown Phone Unavailable Allergies Active Description Code Type Severity Reaction Onset Reported/Identified Relationship to Patient Clinical Status Yes No Known Drug Allergies [id number] Drug Allergy Unknown N/A 06/21/2019 Medications There is no data. Problems Date Dx Coded Attending Type Code Diagnosis Diagnosed By 01/13/2010 Ot 562.10 01/13/2010 Ot V12.72 01/13/2010 Ot V67.09 02/21/2012 Ot 567.9 NATE TONITIS NOS 02/21/2012 Ot 789.05 ABD OMINAL PAIN, PERIUMBILIC 04/03/2012 Ot 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 04/03/2012 Ot 568.0 NATE TONEAL [id number] 09/09/2012 Ot 272.4 HYPE RLIPIDEMIA NEC/NOS 09/09/2012 Ot 342.90 UNS PEC HEMIPLEGIA HEMIPARESIS UNSPEC S 09/09/2012 Ot 414.01 COR ONARY ATHEROSCLEROSIS OF [place] CORON 09/09/2012 Ot 428.0 EMA ESTIVE HEART FAILURE NOS 09/09/2012 Ot 433.10 CAR OTID ARTERY OCCLUSION W O CEREBRAL IN 09/09/2012 Ot 434.91 CER EBRAL ART OCCLUSION NOS W CEREBRAL IN 09/09/2012 Ot 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 09/09/2012 Ot 715.90 OST EOARTHROS NOS- UNSPEC 09/09/2012 Ot 781.94 FAC IAL WEAKNESS 09/09/2012 Ot 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 09/09/2012 Ot V15.82 HIS TORY OF TOBACCO USE 09/14/2012 Ot 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 09/14/2012 Ot 401.9 HYPE RTENSION NOS 09/14/2012 Ot 414.01 COR ONARY ATHEROSCLEROSIS OF [place] CORON 09/14/2012 Ot 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 DIS NEC 09/14/2012 Ot 428.0 EMA ESTIVE HEART FAILURE NOS 09/14/2012 Ot 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,HEMIPLEGIA AFFECTING 09/14/2012 Ot 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 09/14/2012 Ot 530.81 ESO PHAGEAL REFLUX 09/14/2012 Ot 564.00 UNS PEC CONSTIPATION 09/14/2012 Ot 781.2 ABNO RMALITY OF GAIT 09/14/2012 Ot 790.29 OTH ER ABNORMAL GLUCOSE 09/14/2012 Ot V57.1 PHYS ICAL THERAPY NEC 09/14/2012 Ot V57.21 ENC OUNTER FOR OCCUPATIONAL THERAPY 12/20/2012 ROSANGELA DEMARCO MD Ot 438.8 9 OTH LATE EFFECT-CEREBROVASCULAR DISEASE 12/20/2012 ROSANGELA DEMARCO MD Ot 728.8 7 MUSCLE WEAKNESS (GENERALIZED) 12/20/2012 ROSANGELA DEMARCO MD Ot V57.2 1 ENCOUNTER FOR OCCUPATIONAL THERAPY 01/30/2013 ROSANGELA DEMARCO MD Ot 438.8 9 OTH LATE EFFECT-CEREBROVASCULAR DISEASE 01/30/2013 ROSANGELA DEMARCO MD Ot 728.8 7 MUSCLE WEAKNESS (GENERALIZED) 01/30/2013 ROSANGELA DEMARCO MD Ot V57.2 1 ENCOUNTER FOR OCCUPATIONAL THERAPY 09/15/2014 Ot 592.0 09/15/2014 Ot 433.10 09/15/2014 Ot 412 09/15/2014 Ot 414.00 09/15/2014 Ot 397.0 09/15/2014 Ot 424.0 09/15/2014 Ot 425.4 09/15/2014 Ot 553.1 09/15/2014 Ot V72.81 09/15/2014 Ot V74.8 09/15/2014 Ot 433.10 09/15/2014 Ot 433.30 09/15/2014 Ot 433.10 09/15/2014 Ot 786.05 09/15/2014 Ot V72.63 09/15/2014 Ot V72.83 09/15/2014 Ot V74.8 10/14/2014 BAIMA AUBREY L BREAD AND PASTRY BAKER Ot 272.4 10/14/2014 BAIMA AUBREY L BREAD AND PASTRY BAKER Ot 305.1 10/14/2014 BAIMA AUBREY L BREAD AND PASTRY BAKER Ot 401.9 10/14/2014 BAIMA AUBREY L BREAD AND PASTRY BAKER Ot 414.00 10/14/2014 BAIMA AUBREY L BREAD AND PASTRY BAKER Ot 414.8 10/14/2014 BAIMA AUBREY L BREAD AND PASTRY BAKER Ot 433.10 10/31/2014 BAIAUBREY KENYON BREAD AND PASTRY BAKER Ot 272.4 10/31/2014 BRADLEYAUBREY KENYON BREAD AND PASTRY BAKER Ot 305.1 10/31/2014 BRADLEYAUBREY KENYON BREAD AND PASTRY BAKER Ot 401.9 10/31/2014 BRADLEYAUBREY KENYON BREAD AND PASTRY BAKER Ot 414.00 10/31/2014 BRADLEYAUBREY KENYON BREAD AND PASTRY BAKER Ot 414.8 10/31/2014 BECKAUBREY BREAD AND PASTRY BAKER Ot 433.10 01/02/2015 TARAN CARRENO MD, Ot 562.10 DIVERTICULOSIS COLON (W/O MENT OF HEMORR 01/02/2015 TARAN CARRENO MD, Ot 569.0 ANAL RECTAL POLYP 01/02/2015 TARAN CARRENO MD, Ot V16.0 FAMILY HX-GI MALIGNANCY 01/02/2015 TARAN CARRENO MD, Ot V76.51 SCREEN MAL NEOP-COLON 06/25/2015 ROSANGELA DEMARCO MD, Ot A41.5 1 SEPSIS DUE TO ESCHERICHIA COLI [E. COLI] 06/25/2015 ROSANGELA DEMARCO MD, Ot E86.0 DEHYDRATION 06/25/2015 ROSANGELA DEMARCO MD, Ot F17.2 00 NICOTINE DEPENDENCE, UNSPECIFIED, UNCOMP 06/25/2015 ROSANGELA DEMARCO MD, Ot I12.9 HYPERTENSIVE CHRONIC KIDNEY DISEASE W [...] CHRONIC KIDNEY DISEASE, UNSPECIFIED 06/25/2015 ROSANGELA DEMARCO MD, Ot N30.0 0 ACUTE CYSTITIS WITHOUT HEMATURIA 06/25/2015 ROSANGELA DEMARCO MD, Ot S50.02XA CONTUSION OF LEFT ELBOW, INITIAL ENCOUNT 06/25/2015 ROSANGELA DEMARCO MD, Ot W19.XXXA UNSPECIFIED FALL, INITIAL ENCOUNTER 06/25/2015 ROSANGELA DEMARCO MD, Ot Y92.0 02 BATHRM OF [facility] NON-INSTITUT RESDNCE SNGL 06/25/2015 ROSANGELA DEMARCO MD Ot Z86.7 3 PRSNL HX OF TIA (TIA), AND CEREB INFRC W 08/24/2015 NILAM GAVIN, ROSANGELA Connors Ot N39.0 07/15/2016 Ot 397.0 TRIC USPID VALVE DISEASE 07/15/2016 Ot 424.0 MITR AL VALVE DISORDER 07/15/2016 Ot 425.4 PRIM CARDIOMYOPATHY NEC 07/15/2016 Ot 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 07/15/2016 Ot V72.81 [id number]-[id number] CARDIOVASCULAR 07/15/2016 Ot V74.8 SCRE EN-BACTERIAL DIS NEC 07/15/2016 Ot 433.10 CAR OTID ARTERY OCCLUSION W O CEREBRAL IN 07/15/2016 Ot 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 07/15/2016 Ot 433.10 CAR OTID ARTERY OCCLUSION W O CEREBRAL IN 07/15/2016 Ot 786.05 GENET RTNESS OF BREATH 07/15/2016 Ot V72.63 PRE -PROCEDURAL LABORATORY EXAMINATION 07/15/2016 Ot V72.83 EXA M PRE- OPERATIVE NEC 07/15/2016 Ot V74.8 SCRE EN-BACTERIAL DIS NEC 07/15/2016 BAIMA, AUBREY L BREAD AND PASTRY BAKER Ot 272.4 HYPERLIPIDEMIA NEC/NOS 07/15/2016 BAIMA, AUBREY L BREAD AND PASTRY BAKER Ot 305.1 TOBACCO USE DISORDER 07/15/2016 BAIMA, AUBREY L BREAD AND PASTRY BAKER Ot 401.9 HYPERTENSION NOS 07/15/2016 BRADLEYMA AUBREY L BREAD AND PASTRY BAKER Ot 414.00 CORON ATHEROSCLER NOS TYPE VESSEL, NATIV 07/15/2016 BAIOSITO KENYONHER L BREAD AND PASTRY BAKER Ot 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 DIS NEC 07/15/2016 BAIKOSTAS AUBREY L BREAD AND PASTRY BAKER Ot 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 ARTERY OCCLUSION W O CEREBRAL IN 07/15/2016 WAI GAVIN, TARAN Ot V72.84 EXAM PRE-OPERATIVE NOS 07/15/2016 NILAM GAVIN, ROSANGELA Connors Ot N39.0 URINARY TRACT INFECTION, SITE NOT SPECIF 07/15/2016 Ot 397.0 TRIC USPID VALVE DISEASE 07/15/2016 Ot 424.0 MITR AL VALVE DISORDER 07/15/2016 Ot 425.4 PRIM CARDIOMYOPATHY NEC 07/15/2016 Ot 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 07/15/2016 Ot V72.81 [id number] CARDIOVASCULAR 07/15/2016 Ot V74.8 SCRE EN-BACTERIAL DIS NEC 07/15/2016 Ot 433.10 CAR OTID ARTERY OCCLUSION W O CEREBRAL IN 07/15/2016 Ot 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 07/15/2016 Ot 433.10 CAR OTID ARTERY OCCLUSION W O CEREBRAL IN 07/15/2016 Ot 786.05 GENET RTNESS OF BREATH 07/15/2016 Ot V72.63 PRE -PROCEDURAL LABORATORY EXAMINATION 07/15/2016 Ot V72.83 EXA M PRE- OPERATIVE NEC 07/15/2016 Ot V74.8 SCRE EN-BACTERIAL DIS NEC 07/15/2016 BAIMA, AUBREY L BREAD AND PASTRY BAKER Ot 272.4 HYPERLIPIDEMIA NEC/NOS 07/15/2016 BAIMA, AUBREY L BREAD AND PASTRY BAKER Ot 305.1 TOBACCO USE DISORDER 07/15/2016 BAIMA, AUBREY L BREAD AND PASTRY BAKER Ot 401.9 HYPERTENSION NOS 07/15/2016 BAIMA, AUBREY L BREAD AND PASTRY BAKER Ot 414.00 CORON ATHEROSCLER NOS TYPE VESSEL, NATIV 07/15/2016 BAIMA, AUBREY L BREAD AND PASTRY BAKER Ot 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 DIS NEC 07/15/2016 BAIMA, AUBREY L BREAD AND PASTRY BAKER Ot 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 ARTERY OCCLUSION W O CEREBRAL IN 07/15/2016 WAI GAVIN, TARAN Ot V72.84 EXAM PRE-OPERATIVE NOS 07/15/2016 ROSANGELA DEMARCO MD Ot N39.0 URINARY TRACT INFECTION, SITE NOT SPECIF 09/06/2016 ROSANGELA DEMARCO MD Ot 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 09/06/2016 ROSANGELA DEMARCO MD Ot E11.6 5 TYPE 2 DIABETES MELLITUS WITH HYPERGLYCE 10/03/2016 ROSANGELA DEMARCO MD Ot 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 10/03/2016 ROSANGELA DEMARCO MD Ot E11.6 5 TYPE 2 DIABETES MELLITUS WITH HYPERGLYCE 10/07/2016 ROSANGELA DEAMRCO MD Ot 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 10/07/2016 ROSANGELA DEMARCO MD Ot E11.6 5 TYPE 2 DIABETES MELLITUS WITH HYPERGLYCE 10/13/2016 ROSANGELA DEMARCO MD Ot 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 10/13/2016 ROSANGELA DEMARCO MD Ot E11.6 5 TYPE 2 DIABETES MELLITUS WITH HYPERGLYCE 03/17/2017 MARIUSZ GAVIN FACC, ALI FACP CCDS Ot E78.4 OTHER HYPERLIPIDEMIA 03/17/2017 MARIUSZ GAVIN FACC, ALI FACP CCDS Ot I10 ESSENTIAL (PRIMARY) HYPERTENSION 03/17/2017 MARIUSZ GAVIN FACC, ALI FACP CCDS Ot I25.10 ATHSCL HEART DISEASE OF [place] CORONARY 03/17/2017 MARIUSZ GAVIN FACC, ALI FACP CCDS Ot I25.5 ISCHEMIC CARDIOMYOPATHY 03/17/2017 [...] CCDS Ot I25.10 ATHSCL HEART DISEASE OF [place] CORONARY 04/07/2017 MARIUSZ VAZQUEZC, ALI FACP CCDS Ot I25.5 ISCHEMIC CARDIOMYOPATHY 04/07/2017 MARIUSZ VAZQUEZC, ALI FACP CCDS Ot I65.23 OCCLUSION AND STENOSIS OF [place] 04/07/2017 MARIUSZ VAZQUEZC, ALI FACP CCDS Ot Z72.0 TOBACCO USE 04/12/2017 MARIUSZ VAZQUEZC, ALI FACP CCDS Ot E78.4 OTHER HYPERLIPIDEMIA 04/12/2017 MARIUSZ VAZQUEZC, ALI FACP CCDS Ot I10 ESSENTIAL (PRIMARY) HYPERTENSION 04/12/2017 MRAIUSZ VAZQUEZC, ALI FACP CCDS Ot I25.10 ATHSCL HEART DISEASE OF [place] CORONARY 04/12/2017 MARIUSZ VAZQUEZC, ALI FACP CCDS Ot I25.5 ISCHEMIC CARDIOMYOPATHY 04/12/2017 MARIUSZ VAZQUEZC, ALI FACP CCDS Ot I65.23 OCCLUSION AND STENOSIS OF [place] 04/12/2017 MARIUSZ VAZQUEZC, ALI FACP CCDS Ot Z72.0 TOBACCO USE 04/19/2017 MARIUSZ VAZQUEZC, ALI FACP CCDS Ot E78.4 OTHER HYPERLIPIDEMIA 04/19/2017 MARIUSZ VAZQUEZC, ALI FACP CCDS Ot I10 ESSENTIAL (PRIMARY) HYPERTENSION 04/19/2017 MARIUSZ VAZQUEZC, ALI FACP CCDS Ot I25.10 ATHSCL HEART DISEASE OF [place] CORONARY 04/19/[address] [facility], ALI FACP CCDS Ot I25.5 ISCHEMIC CARDIOMYOPATHY 04/19/2017 MARIUSZ GAVIN FAC, ALI FACP CCDS Ot I65.23 OCCLUSION AND STENOSIS OF [place] 04/19/[address] [facility], ALI FACP CCDS Ot Z72.0 TOBACCO USE 05/01/2017 MARIUSZ GAVIN FAC, ALI FACP CCDS Ot E78.4 OTHER HYPERLIPIDEMIA 05/01/[address] [facility], ALI FACP CCDS Ot I10 ESSENTIAL (PRIMARY) HYPERTENSION 05/01/[address] [facility], ALI FACP CCDS Ot I25.10 ATHSCL HEART DISEASE OF [place] CORONARY 05/01/[address] [facility], ALI FACP CCDS Ot I25.5 ISCHEMIC CARDIOMYOPATHY 05/01/[address] [facility], ALI FACP CCDS Ot I65.23 OCCLUSION AND STENOSIS OF [place] 05/01/[address] 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 08/01/2017 Ot 433.10 CAR OTID ARTERY OCCLUSION W O CEREBRAL IN 08/01/2017 Ot 786.05 GENET RTNESS OF BREATH 08/01/2017 Ot V72.63 PRE -PROCEDURAL LABORATORY EXAMINATION 08/01/2017 Ot V72.83 EXA M PRE- OPERATIVE NEC 08/01/2017 Ot V74.8 SCRE EN-BACTERIAL DIS NEC 08/01/2017 BAIMA, AUBREY L BREAD AND PASTRY BAKER Ot 272.4 HYPERLIPIDEMIA NEC/NOS 08/01/2017 BAIMA, AUBREY L BREAD AND PASTRY BAKER Ot 305.1 TOBACCO USE DISORDER 08/01/2017 BAIMA, AUBREY L BREAD AND PASTRY BAKER Ot 401.9 HYPERTENSION NOS 08/01/2017 BAIMA, AUBREY L BREAD AND PASTRY BAKER Ot 414.00 CORON ATHEROSCLER NOS TYPE VESSEL, NATIV 08/01/2017 BAIMA AUBREY L BREAD AND PASTRY BAKER Ot 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 DIS NEC 08/01/2017 BAIMA, AUBREY L BREAD AND PASTRY BAKER Ot 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 ARTERY OCCLUSION W O CEREBRAL IN 08/01/2017 WAI GAVIN, TARAN Ot V72.84 EXAM PRE-OPERATIVE NOS 08/01/2017 NILAM GAVIN, ROSANGELA Connors Ot N39.0 URINARY TRACT INFECTION, SITE NOT SPECIF 08/01/2017 MARIUSZ GAVIN FACC, ALI FACP CCDS Ot E78.4 OTHER HYPERLIPIDEMIA 08/01/2017 MARIUSZ GAVIN FACC, ALI FACP CCDS Ot I10 ESSENTIAL (PRIMARY) HYPERTENSION 08/01/2017 MARIUSZ GAVIN FACC, ALI FACP CCDS Ot I25.10 ATHSCL HEART DISEASE OF [place] CORONARY 08/01/2017 MARIUSZ GAVIN FACC, ALI FACP CCDS Ot I25.5 ISCHEMIC CARDIOMYOPATHY 08/01/2017 MARIUSZ GAVIN FACC, ALI FACP CCDS Ot I65.23 OCCLUSION AND STENOSIS OF [place] 08/01/2017 MARIUSZ GAVIN FACC, ALI FACP CCDS Ot Z72.0 TOBACCO USE 08/01/2017 MARIUSZ GAVIN FACC, ALI FACP CCDS Ot E78.4 OTHER HYPERLIPIDEMIA 08/01/2017 MARIUSZ GAVIN FACC, ALI FACP CCDS Ot I10 ESSENTIAL (PRIMARY) HYPERTENSION 08/01/2017 MARIUSZ GAVIN FACC, ALI FACP CCDS Ot I25.10 ATHSCL HEART DISEASE OF [place] CORONARY 08/01/2017 MARIUSZ GAVIN FAC, ALI FACP CCDS Ot I25.5 ISCHEMIC CARDIOMYOPATHY 08/01/2017 MARIUSZ GAVIN FACC, ALI FACP CCDS Ot I65.23 OCCLUSION AND STENOSIS OF [place] 08/01/2017 MARIUSZ GAVIN FACC, ALI FACP CCDS Ot Z72.0 TOBACCO USE 08/04/2017 YRIS AVILA MD Ot N20.0 CALCULUS OF KIDNEY 08/04/2017 YRIS AVILA MD Ot N20.0 CALCULUS OF KIDNEY 08/11/2017 YRIS AVILA MD Ot 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 08/11/2017 YRIS AVILA MD Ot Z01.8 18 ENCOUNTER FOR OTHER PREPROCEDURAL EXAMIN 08/15/2017 YRIS AVILA MD Ot 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 08/15/2017 YRIS AVILA MD Ot E11.9 TYPE 2 DIABETES MELLITUS WITHOUT COMPLIC 08/15/2017 YRIS AVILA MD Ot F17.2 90 NICOTINE DEPENDENCE, OTHER TOBACCO PRODU 08/15/2017 YRIS AVILA MD Ot I10 ESSENTIAL (PRIMARY) HYPERTENSION 08/15/2017 YRIS AVILA MD Ot I25.1 0 ATHSCL HEART DISEASE OF [place] CORONARY 08/15/2017 YRIS AVILA MD Ot I25.2 OLD MYOCARDIAL INFARCTION 08/15/2017 YRIS AVILA MD Ot 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 08/15/2017 YRIS AVILA MD Ot N40.0 BENIGN PROSTATIC HYPERPLASIA WITHOUT LOW 08/15/2017 YRIS AVILA MD Ot 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 08/15/2017 YRIS AVILA MD, Ot Z79.8 99 OTHER DETENTION (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 THERAPY 08/21/2017 YRIS AVILA MD Ot 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 08/21/2017 YRIS AVILA MD Ot E11.9 TYPE 2 DIABETES MELLITUS WITHOUT COMPLIC 08/21/2017 YRIS AVILA MD Ot F17.2 90 NICOTINE DEPENDENCE, OTHER TOBACCO PRODU 08/21/2017 YRIS AVILA MD Ot I10 ESSENTIAL (PRIMARY) HYPERTENSION 08/21/2017 YRIS AVILA MD Ot I25.1 0 ATHSCL HEART DISEASE OF [place] CORONARY 08/21/2017 YRIS AVILA MD Ot I25.2 OLD MYOCARDIAL INFARCTION 08/21/2017 YRIS AVILA MD Ot 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 08/21/2017 YRIS AVILA MD Ot N40.0 BENIGN PROSTATIC HYPERPLASIA WITHOUT LOW 08/21/2017 YRIS AVILA MD Ot Z79.8 2 DETENTION (CURRENT) USE OF ASPIRIN 08/21/2017 YRIS AVILA MD Ot Z79.8 99 OTHER DETENTION (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 THERAPY 08/24/2017 YRIS AVILA MD Ot 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 08/24/2017 YRIS AVILA MD Ot E11.9 TYPE 2 DIABETES MELLITUS WITHOUT COMPLIC 08/24/2017 YRIS AVILA MD Ot F17.2 90 NICOTINE DEPENDENCE, OTHER TOBACCO PRODU 08/24/2017 YRIS AVILA MD Ot I10 ESSENTIAL (PRIMARY) HYPERTENSION 08/24/2017 YRIS AVILA MD, Ot I25.1 0 ATHSCL HEART DISEASE OF [place] CORONARY 08/24/2017 YRIS AVILA MD, Ot I25.2 OLD MYOCARDIAL INFARCTION 08/24/2017 YRIS AVILA MD Ot 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 08/24/2017 YRIS AVILA MD Ot N40.0 BENIGN PROSTATIC HYPERPLASIA WITHOUT LOW 08/24/2017 YRIS AVILA MD Ot 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 08/24/2017 YRIS AVILA MD, Ot Z79.8 99 OTHER DETENTION (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 THERAPY 08/29/2017 YRIS AVILA MD Ot N20.0 CALCULUS OF KIDNEY 08/30/2017 YRIS AVILA MD Ot N20.0 CALCULUS OF KIDNEY 08/29/2018 YRIS AVILA MD Ot Z01.8 18 ENCOUNTER FOR OTHER PREPROCEDURAL EXAMIN 08/30/2018 YRIS AVILA MD Ot Z01.8 18 ENCOUNTER FOR OTHER PREPROCEDURAL EXAMIN 09/04/2018 AUBREY SOLARES BREAD AND PASTRY BAKER Ot 272.4 HYPERLIPIDEMIA NEC/NOS 09/04/2018 AUBREY SOLARES BREAD AND PASTRY BAKER Ot 305.1 TOBACCO USE DISORDER 09/04/2018 AUBREY SOLARES BREAD AND PASTRY BAKER Ot 401.9 HYPERTENSION NOS 09/04/2018 AUBREY SOLARES BREAD AND PASTRY BAKER Ot 414.00 CORON ATHEROSCLER NOS TYPE VESSEL, NATIV 09/04/2018 AUBREY SOLARES BREAD AND PASTRY BAKER Ot 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 DIS NEC 09/04/2018 AUBREY SOLARES BREAD AND PASTRY BAKER Ot 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 ARTERY OCCLUSION W O CEREBRAL IN 09/04/2018 WAI GAVIN, TARAN Ot V72.84 EXAM PRE-OPERATIVE NOS 09/04/2018 NILAM GAVIN, ROSANGELA Connors Ot N39.0 URINARY TRACT INFECTION, SITE NOT SPECIF 09/04/2018 MARIUSZ GAVIN FACC, DORCAS FACP CCDS Ot E78.4 OTHER HYPERLIPIDEMIA 09/04/2018 MARIUSZ GAVIN FACC, ALI FACP CCDS Ot I10 ESSENTIAL (PRIMARY) HYPERTENSION 09/04/2018 MARIUSZ GAVIN FACC, ALI FACP CCDS Ot I25.10 ATHSCL HEART DISEASE OF [place] CORONARY 09/04/2018 MARIUSZ GAVIN FACC, ALI FACP CCDS Ot I25.5 ISCHEMIC CARDIOMYOPATHY 09/04/2018 MARIUSZ GAVIN FACC, ALI FACP CCDS Ot I65.23 OCCLUSION AND STENOSIS OF BILATERAL [place] 09/04/2018 MARIUSZ GAVIN FACC, ALI FACP CCDS Ot Z72.0 TOBACCO USE 09/04/2018 MARIUSZ GAVIN FACC, ALI FACP CCDS Ot E78.4 OTHER HYPERLIPIDEMIA 09/04/2018 MARIUSZ GAVIN FACC, ALI FACP CCDS Ot I10 ESSENTIAL (PRIMARY) HYPERTENSION 09/04/2018 MARIUSZ GAVIN FACC, ALI FACP CCDS Ot I25.10 ATHSCL HEART DISEASE OF [place] CORONARY 09/04/2018 MARIUSZ GAVIN FAC, ALI FACP CCDS Ot I25.5 ISCHEMIC CARDIOMYOPATHY 09/04/2018 MARIUSZ GAVIN FAC, ALI FACP CCDS Ot I65.23 OCCLUSION AND STENOSIS OF BILATERAL [place] 09/04/2018 MARIUSZ GAVIN FAC, ALI FACP CCDS Ot Z72.0 TOBACCO USE 09/04/2018 YRIS AVILA MD Ot N20.0 CALCULUS OF KIDNEY 09/04/2018 YRIS AVILA MD Ot 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 09/04/2018 YRIS AVILA MD Ot 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 09/04/2018 YRIS AVILA MD Ot I10 ESSENTIAL (PRIMARY) HYPERTENSION 09/04/2018 YRIS AVILA MD Ot I25.1 0 ATHSCL HEART DISEASE OF [place] CORONARY 09/04/2018 YRIS AVILA MD Ot I25.2 OLD MYOCARDIAL INFARCTION 09/04/2018 YRIS AVILA MD Ot K21.9 GASTRO-ESOPHAGEAL REFLUX DISEASE WITHOUT 09/04/2018 YRIS AVILA MD, Ot K44.9 DIAPHRAGMATIC HERNIA WITHOUT OBSTRUCTION 09/04/2018 YRIS AVILA MD Ot 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 09/04/2018 YRIS AVILA MD, Ot Z79.8 4 TELEVISION REPAIR 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 OF ORAL HYPOGLYC 09/04/2018 YRIS AVILA MD, Ot Z79.8 99 OTHER DETENTION (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 THERAPY 09/04/2018 YRIS AVILA MD, Ot Z86.7 3 PRSNL HX OF TIA (TIA), AND CEREB INFRC W 09/04/2018 YRIS AVILA MD, Ot Z87.8 91 PERSONAL HISTORY OF NICOTINE DEPENDENCE 09/06/2018 YRIS AVILA MD, Ot 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 09/06/2018 YRIS AVILA MD Ot 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 09/06/2018 YRIS AVILA MD Ot I10 ESSENTIAL (PRIMARY) HYPERTENSION 09/06/2018 YRIS AVILA MD Ot I25.1 0 ATHSCL HEART DISEASE OF [place] CORONARY 09/06/2018 YRIS AVILA MD Ot I25.2 OLD MYOCARDIAL INFARCTION 09/06/2018 YRIS AVILA MD Ot K21.9 GASTRO-ESOPHAGEAL REFLUX DISEASE WITHOUT 09/06/2018 YRIS AVILA MD, Ot K44.9 DIAPHRAGMATIC HERNIA WITHOUT OBSTRUCTION 09/06/2018 YRIS AVILA MD, Ot Z79.8 2 DETENTION (CURRENT) USE OF ASPIRIN 09/06/2018 YRIS AVILA MD, Ot Z79.8 4 TELEVISION REPAIR 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 OF ORAL HYPOGLYC 09/06/2018 YRIS AVILA MD, Ot Z79.8 99 OTHER TELEVISION REPAIR TEACHER (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 THERAPY 09/06/2018 YRIS AVILA MD, Ot Z86.7 3 PRSNL HX OF TIA (TIA), AND CEREB INFRC W 09/06/2018 YRIS AVILA MD, Ot Z87.8 91 PERSONAL HISTORY OF NICOTINE DEPENDENCE 09/06/2018 YRIS AVILA MD, Ot 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 09/06/2018 YRIS AVILA MD Ot 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 09/06/2018 YRIS AVILA MD Ot I10 ESSENTIAL (PRIMARY) HYPERTENSION 09/06/2018 YRIS AVILA MD Ot I25.1 0 ATHSCL HEART DISEASE OF [place] CORONARY 09/06/2018 YRIS AVILA MD Ot I25.2 OLD MYOCARDIAL INFARCTION 09/06/2018 YRIS AVILA MD, Ot K21.9 GASTRO-ESOPHAGEAL REFLUX DISEASE WITHOUT 09/06/2018 YRIS AVILA MD, Ot K44.9 DIAPHRAGMATIC HERNIA WITHOUT OBSTRUCTION 09/06/2018 YRIS AVILA MD, Ot Z79.8 2 DETENTION (CURRENT) USE OF ASPIRIN 09/06/2018 YRIS AVILA MD, Ot Z79.8 4 DETENTION (CURRENT) USE OF ORAL HYPOGLYC 09/06/2018 YRIS AVILA MD, Ot Z79.8 99 OTHER DETENTION (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 THERAPY 09/06/2018 YRIS AVILA MD, Ot Z86.7 3 PRSNL HX OF TIA (TIA), AND CEREB INFRC W 09/06/2018 YRIS AVILA MD, Ot Z87.8 91 PERSONAL HISTORY OF NICOTINE DEPENDENCE 11/20/2018 NILAM GAVIN, ROSANGELA Connors Ot R05 COUGH 11/29/2018 ROSANGELA DEMARCO MD Ot R05 COUGH 05/15/2019 BAIMA, AUBREY L BREAD AND PASTRY BAKER Ot E78.5 HYPERLIPIDEMIA, UNSPECIFIED 05/15/2019 BAIMA, AUBREY L BREAD AND PASTRY BAKER Ot I11.9 HYPERTENSIVE HEART DISEASE WITHOUT HEART 05/15/2019 BAIMA, AUBREY L BREAD AND PASTRY BAKER Ot I25.10 ATHSCL HEART DISEASE OF [place] CORONARY 05/15/2019 BAIMA, AUBREY L BREAD AND PASTRY BAKER Ot I34.0 NONRHEUMATIC MITRAL (VALVE) INSUFFICIENC 05/15/2019 BAIMA, AUBREY L BREAD AND PASTRY BAKER Ot I65.23 OCCLUSION AND STENOSIS OF BILATERAL [place] 06/03/2019 BAIMA, AUBREY L BREAD AND PASTRY BAKER Ot E78.5 HYPERLIPIDEMIA, UNSPECIFIED 06/03/2019 BAIMA, AUBREY L BREAD AND PASTRY BAKER Ot I11.9 HYPERTENSIVE HEART DISEASE WITHOUT HEART 06/03/2019 BAIMA, AUBREY L BREAD AND PASTRY BAKER Ot I25.10 ATHSCL HEART DISEASE OF [place] CORONARY 06/03/2019 BAIMA, AUBREY L BREAD AND PASTRY BAKER Ot I34.0 NONRHEUMATIC MITRAL (VALVE) INSUFFICIENC 06/03/2019 BAIMA, AUBREY L BREAD AND PASTRY BAKER Ot I65.23 OCCLUSION AND STENOSIS OF BILATERAL [place] 06/07/2019 BAIMA, AUBREY L BREAD AND PASTRY BAKER Ot E78.5 HYPERLIPIDEMIA, UNSPECIFIED 06/07/2019 BAIMAAUBREY BREAD AND PASTRY BAKER Ot I11.9 HYPERTENSIVE HEART DISEASE WITHOUT HEART 06/07/2019 BAIAUBREY KENYON BREAD AND PASTRY BAKER Ot I25.10 ATHSCL HEART DISEASE OF [place] CORONARY 06/07/2019 AUBREY SOLARES BREAD AND PASTRY BAKER Ot I34.0 NONRHEUMATIC MITRAL (VALVE) INSUFFICIENC 06/07/2019 BAIAUBREY KENYON BREAD AND PASTRY BAKER Ot I65.23 OCCLUSION AND STENOSIS OF BILATERAL [place] 06/13/2019 BAIMAAUBREY BREAD AND PASTRY BAKER Ot E78.5 HYPERLIPIDEMIA, UNSPECIFIED 06/13/2019 BAIMAAUBREY BREAD AND PASTRY BAKER Ot I11.9 HYPERTENSIVE HEART DISEASE WITHOUT HEART 06/13/2019 AUBREY SOLARES BREAD AND PASTRY BAKER Ot I25.10 ATHSCL HEART DISEASE OF [place] CORONARY 06/13/2019 AUBREY SOLARES BREAD AND PASTRY BAKER Ot I34.0 NONRHEUMATIC MITRAL (VALVE) INSUFFICIENC 06/13/2019 AUBREY SOLARES BREAD AND PASTRY BAKER Ot I65.23 OCCLUSION AND STENOSIS OF [place]IL[place] 06/21/2019 ROSANGELA DEMARCO MD Ot 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 06/21/2019 ROSANGELA DEMARCO MD Ot E11.6 5 TYPE 2 DIABETES MELLITUS WITH HYPERGLYCE 06/21/2019 YRIS AVILA MD, Ot Z01.8 18 ENCOUNTER FOR OTHER PREPROCEDURAL EXAMIN 06/23/2019 YRIS AVILA MD, Ot K57.3 0 DVRTCLOS OF LG INT W/O PERFORATION OR AB 06/23/2019 YRIS AVILA MD Ot N20.0 CALCULUS OF KIDNEY 06/23/2019 YRIS AVILA MD Ot Z85.5 1 PERSONAL HISTORY OF MALIGNANT NEOPLASM O 06/26/2019 YRIS AVILA MD, Ot K57.3 0 DVRTCLOS OF LG INT W/O PERFORATION OR AB 06/26/2019 YRIS AVILA MD Ot N20.0 CALCULUS OF KIDNEY 06/26/2019 YRIS AVILA MD Ot Z85.5 1 PERSONAL HISTORY OF MALIGNANT NEOPLASM O 06/26/2019 YRIS AVILA MD Ot C67.9 MALIGNANT NEOPLASM OF [place], UNSPECIFI 06/26/2019 AUSTIN MD, YRIS A Ot 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 06/26/2019 YRIS AVILA MD Ot 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 06/26/2019 YRIS AVILA MD, Ot E78.0 0 PURE HYPERCHOLESTEROLEMIA, UNSPECIFIED 06/26/2019 YRIS AVILA MD, Ot E78.5 HYPERLIPIDEMIA, UNSPECIFIED 06/26/2019 YRIS AVILA MD Ot I11.0 HYPERTENSIVE HEART DISEASE WITH HEART FA 06/26/2019 YRIS AVILA MD, Ot I25.1 0 ATHSCL HEART DISEASE OF [place] CORONARY 06/26/2019 YRIS AVILA MD, Ot I25.2 OLD MYOCARDIAL INFARCTION 06/26/2019 YRIS AVILA MD, Ot I50.9 HEART FAILURE, UNSPECIFIED 06/26/2019 YRIS AVILA MD, Ot K21.9 GASTRO-ESOPHAGEAL REFLUX DISEASE WITHOUT 06/26/2019 YRIS AVILA MD Ot 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 06/26/2019 YRIS AVILA MD, Ot Z79.8 99 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5 HYPERLIPIDEMIA, UNSPECIFIED 07/03/2019 YRIS AVILA MD, Ot I11.0 HYPERTENSIVE HEART DISEASE WITH HEART FA 07/03/2019 YRIS AVILA MD, Ot I25.1 0 ATHSCL HEART DISEASE OF [place] CORONARY 07/03/2019 YRIS AVILA MD, Ot I25.2 OLD MYOCARDIAL INFARCTION 07/03/2019 YRIS AVILA MD, Ot I50.9 HEART FAILURE, UNSPECIFIED 07/03/2019 YRIS AVILA MD, Ot K21.9 GASTRO-ESOPHAGEAL REFLUX DISEASE WITHOUT 07/03/2019 YRIS AVILA MD, Ot 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 07/03/2019 YRIS AVILA MD, Ot Z79.8 99 OTHER DETENTION (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 THERAPY 07/03/2019 YRIS AVILA MD, Ot Z86.7 3 PRSNL HX OF TIA (TIA), AND CEREB INFRC W 07/03/2019 YRIS AVILA MD, Ot Z87.8 91 PERSONAL HISTORY OF NICOTINE DEPENDENCE 07/03/2019 YRIS AVILA MD, Ot Z90.8 9 ACQUIRED ABSENCE OF OTHER ORGANS 07/12/2019 YRIS AVILA MD, Ot K57.3 0 DVRTCLOS OF LG INT W/O PERFORATION OR AB 07/12/2019 YRIS AVILA MD, Ot N20.0 CALCULUS OF KIDNEY 07/12/2019 YRIS AVILA MD, Ot Z85.5 1 PERSONAL HISTORY OF MALIGNANT NEOPLASM O Procedures Code Description Performed By Per formed On 00.21 INTR AVASCULAR IMAGING OF EXTRACRANIAL CE 09/05/2012 00.40 PROC EDURE ON SINGLE VESSEL 09/05/2012 38.12 HEAD NECK ENDARTER NEC 09/05/2012 38.32 HEAD /NECK VES RESEC-ANAS 09/05/2012 Results Test Result Range Methicillin resistant Staphylococcus aur eus (MRSA) screening culture - 08/15/17 07:05 Methicillin resistant Staphylococcus aureus (MRSA) scr eening culture NEG NRG Capillary blood glucose measurement by g lucometer (mass/volume) - 08/15/17 07:19 Capillary blood glucose measurement by glucometer (mas s/volume) 145 mg/dL 70-110 Methicillin resistant Staphylococcus aur eus (MRSA) screening culture - 09/04/18 06:25 Methicillin resistant Staphylococcus aureus (MRSA) scr eening culture NEG NRG Capillary blood glucose measurement by g lucometer (mass/volume) - 09/04/18 06:31 Capillary blood glucose measurement by glucometer (mas s/volume) 130 mg/dL 70-110 Capillary blood glucose measurement by g lucometer (mass/volume) - 06/26/19 08:40 Capillary blood glucose measurement by glucometer (mas s/volume) 161 mg/dL 70-110 Methicillin resistant Staphylococcus aur eus (MRSA) screening culture - 06/26/19 08:45 Methicillin resistant Staphylococcus aureus (MRSA) scr eening culture NEG NRG Coronavirus SARS-CoV-2 SO 2019 - 0 08:00 Coronavirus Ab [Units/volume] in Serum Negative Negative Encounters ACCT No. Visit Date/Time Discharge Status Pt. Type Provider Facility Loc./Unit Complaint [id number] 11/25/2019 05:35:00 020 15:07:00 DIS Outpatient TARAN CARRENO MD Via [facility] [address] PREOP COLONOSCOPY [id number] 06/26/2019 08:22:00 13:25:00 DIS Outpatient YRIS AVILA MD Via [facility] BLADDER NEOPLASM/LESION [id number] 06/21/2019 05:34:00 11:55:00 DIS Outpatient YRIS AVILA MD [facility] [address] PREOP BLADDER NEOPLASM [id number] 06/20/2019 15:24:00 23:59:59 CLS Outpatient YRIS AVILA MD [facility] [address] RAD CANCER BLADDER [id number] 05/14/2019 11:30:00 23:59:59 CLS Outpatient AUBREY SOLARES [facility] [address] CARD CAD [id number] 10/31/2018 09:11:00 23:59:59 CLS Outpatient ROSANGELA DEMARCO MD [facility] [address] RAD COUGH R05 [id number] 09/04/2018 05:54:00 019 10:05:00 DIS Outpatient YRIS AVILA MD Via [facility] BLADDER TUMOR [id number] 08/29/2018 05:36:00 15:03:00 DIS Outpatient YRIS AVILA MD [facility] [address] PREOP BLADDER TUMOR [id number] 08/15/2017 06:50:00 11:00:00 DIS Outpatient YRIS AVILA MD Via [facility] LARGE BLADDER TUMOR [id number] 08/11/2017 05:34:00 12:56:00 DIS Outpatient YRIS AVILA MD [facility] [address] PREOP LARGE BLADDER TUMOR [id number] 08/03/2017 09:23:00 23:59:59 CLS Outpatient YRIS AVILA MD [facility] [address] RAD GROSS HEMATURIA [id number] 03/27/2017 13:57:00 017 23:59:59 CLS [facility] DORCAS FACP CC DS [facility] [address] CARD CAD [id number] 03/16/2017 07:28:00 017 23:59:59 CLS Outpatient MARIUSZ GAVIN FACC, ALI FACP CC DS [facility] [address] CARD CAD [id number] 10/14/2016 10:00:00 017 23:59:59 CLS Preadmit [facility]CO [facility] DIABETES [id number] 07/15/2016 09:53:00 08:00:00 DIS Outpatient [facility] [id number] 07/27/2015 14:11:00 23:59:59 CLS Outpatient ROSANGELA DEMARCO MD [facility] [address] LAB URINARY TRACT INFECTION,FREQUENCY,BURNING [id number] 06/22/2015 15:56:00 16:00:00 DIS Inpatient ROSANGELA DEMARCO MD [facility] [address] 4TH UTI,ARF [id number] 01/02/2015 08:29:00 015 12:10:00 DIS Outpatient TARAN CARRENO MD Via [facility] FAMILY HX COLON CANCER [id number] 01/01/2015 06:12:00 015 23:59:59 CLS Outpatient TARAN CARRENO MD [facility] [address] PREOP FAMILY HX COLON CANCER [id number] 09/15/2014 10:46:00 015 23:59:59 CLS Outpatient AUBREY SOLARES [facility] [address] CARD CAD HTN HLE [id number] 12/28/2012 11:00:00 013 17:00:00 DIS Outpatient ROSANGELA DEMARCO MD [facility] [address] REHAB RT CAROTID STENOSIS [id number] 12/19/2012 14:15:00 013 00:01:00 DIS Outpatient ROSANGELA DEMARCO MD [facility] [address] REHAB RT CAROTID STENOSIS [id number] 11/27/2019 09:30:00 P EN Preadmit TARAN CARRENO MD [facility] [place] ENDO SCREENING/HX POLYPS/RIGHT EA R LESION [id number] 09/09/2012 10:55:00 Document Registration [id number] 09/05/2012 06:05:00 Document Registration [id number] 08/31/2012 13:15:00 Document Registration [id number] 08/20/2012 10:37:00 Document Registration [id number] 04/03/2012 05:39:00 Document Registration [id number] 03/29/2012 10:43:00 Document Registration [id number] 02/21/2012 10:10:00 Document Registration [id number] 02/08/2012 12:15:00 Document Registration [id number] 06/28/2010 09:50:00 Document Registration [id number] 05/14/2010 09:48:00 Document Registration [id number] 01/13/2010 10:00:00 Document Registration [id number] 04/08/2009 15:45:00 Document Registration
[2019-11-27 09:32] VITALS: BP 139/87
[2019-11-27] MEDS ORDERED: LACTATED RINGERS 1,000 ML IV STA (09:35)
[2019-11-27] MEDS ORDERED: LIDOCAINE JELLY 2% 6 ML SYRINGE MM PRN (09:45)
[2019-11-27] MEDS ORDERED: LIDOCAINE 1% INJ 20 ML 20 ML VIAL ONE (10:07)
[2019-11-27] MEDS ORDERED: proPOfol 200 MG/20 ML (DIPRIVAN) VIAL IV ONE (10:10)
--- NOTE | 2019-11-27 10:18 | Progress Note-Pre Operative ---
Pre-Operative Progress Note H&P Reviewed The H&P was reviewed, patient examined and no changes noted. Date Seen by Provider: Nov 27, 2019 Time Seen by Provider: : Date H&P Reviewed: Nov 27, 2019 Time H&P Reviewed: :30 Pre-Operative Diagnosis: family hx colon ca, sx right ear leasion. TARAN CARRENO MD Nov 27, 2019 10:18
[2019-11-27] MEDS ORDERED: LIDOCAINE JELLY 2% 6 ML SYRINGE ONE (10:20)
--- NOTE | 2019-11-27 10:20 | Discharge Inst-Surgical ---
D/C Lap Instructions-WAI Follow Up Activity as tolerated High Fiber Diet 25g or more per day Avoid Alcohol, Caffeine, Spicy Kappa and Acid foods. Drink 64 fluid oz or more of fluids per day. Symptoms to Report: Fever over 101 degree F, Nausea/Vomiting If any problems/questions: Contact your physician or go to Emergency Room TARAN CARRENO MD Nov 27, 2019 10:19
[2019-11-27] MEDS ORDERED: ONDANSETRON 4 MG/2 ML (SDV) Z0FRAN IVP PRN (10:30)
[2019-11-27] MEDS ORDERED: HYDROcodone/APAP 5 MG/325 MG (LORTAB) TAB PO PRN (10:30)
[2019-11-27] MEDS ORDERED: morphine INJ 10 MG/ML 1ML (SYR OR VIAL) IVP PRN ×2 (10:30)
[2019-11-27] MEDS ORDERED: ACETAMINOPHEN 325 MG TABLET PO PRN (10:30)
[2019-11-27] MEDS ORDERED: ATROPINE INJ 0.4 MG/ML SDV IV ONE (10:45)
[2019-11-27 11:00] VITALS: BP 103/64
[2019-11-27 11:05] VITALS: BP 106/67
[2019-11-27 11:10] VITALS: BP 94/59
--- NOTE | 2019-11-27 11:11 | Progress Note-Post Operative ---
Post-Operative Progess Note Surgeon (s)/Traffic I Manager (s) Surgeon TARAN CARRENO MD Traffic I Manager: none Pre-Operative Diagnosis family hx colon ca, sx right ear leasion. Post-Operative Diagnosis mulitiple small HP polyp rectum(1mm), small rectal tear. 1cm lesion right ear. Procedure & Operative Findings Date of Procedure 11/27/19 Procedure Performed/Findings flexible proctoscopy. excision skin lesion right ear. Anesthesia Type mac Estimated Blood Loss Estimated blood loss (mL): minimal Specimens/Packing Specimens Removed right moises lesion. TARAN CARRENO MD Nov 27, 2019 11:11
[2019-11-27] MEDS ORDERED: LIDOCAINE 1% INJ 20 ML 20 ML VIAL INJ ONE (11:15)
[2019-11-27 11:40] VITALS: BP 148/100
--- NOTE | 2019-11-27 11:55 | Anesthesia-General Post-Op ---
MAC Patient Condition Mental Status/LOC: Same as Preop Cardiovascular: Satisfactory Nausea/Vomiting: Absent Respiratory: Satisfactory Pain: Controlled Complications: Absent Post Op Complications Complications None Follow Up Care/Instructions Patient Instructions None needed. Anesthesiology Discharge Order Discharge Order Patient is doing well, no complaints, stable vital signs, no apparent adverse anesthesia problems. GAIL BARRETT DO Nov 27, 2019 11:55
[2019-11-27 12:15] VITALS: BP 148/100
--- NOTE | 2019-11-27 14:05 | OPERATIVE REPORT ---
DATE OF SERVICE: 11/27/2019 ATTENDING PRIMARY CARE PHYSICIAN: Jw Preciado MD PREOPERATIVE DIAGNOSES: Screening colonoscopy with family history of colon cancer. Symptomatic right ear lesion. POSTOPERATIVE DIAGNOSES: Multiple small hyperplastic polyps of the rectum, each less than 1 mm in size. A tear was noted in the rectum and the colonoscopy portion of the procedure was aborted. PROCEDURE: Flexible proctoscopy, excision ear lesion 1 cm in size. SURGEON: Taran Carreno MD ANESTHESIA: Monitored anesthesia care with local. ESTIMATED BLOOD LOSS: Minimal. FINDINGS: Multiple small hyperplastic polyps of the rectum, each less than 1 mm in size. A tear was noted in the rectum and the colonoscopy portion of the procedure was aborted. DISPOSITION: The patient tolerated the procedure well. INDICATIONS: The patient is an 84-year-old male known to us. We had done previous colonoscopies on him before. He has had a previous polyps, most of them are benign hyperplastic polyps. He did have one tubular adenoma identified in the past. He does have a family history of colon cancer. He states that he is otherwise doing well, does not have any complaints. He does have a symptomatic lesion of the right ear along the inner aspect of the tragus of the right ear approximately 1 cm in size, which is heaped up and hyperkeratotic. The ear was prepped and draped in standard surgical fashion. DESCRIPTION OF PROCEDURE: The patient was brought to the endoscopy suite, laid in left lateral decubitus position. After adequate IV pain and sedative medications and monitored anesthesia care, a digital rectal examination was performed. Mild chronic stage II external and internal hemorrhoids were identified, which were not actively edematous nor inflamed and no bleeding. Normal sphincter tone was felt and there were no palpable masses. The endoscope was then intubated to the anus and rectum gently insufflated. The endoscope was then advanced to the first valve of Nielson of the rectum with multiple small hyperplastic polyps, each less than 1 mm in size identified. We then navigated through the 2nd valve of Nielson. However, due to pressure the patient became vasovagal and atropine had to be given. Throughout this process, once his heart rate was normal. A mucosal tear was identified, which was within the rectum and intraperitoneal. This was small, approximately 1 cm in size. Due to this tear, it was decided to stop the colonoscopy portion of the procedure. Due to the tension that would be created around the area of the rectum and potential worsening of the tear. The endoscope was then slowly withdrawn while taking a second look and suctioning of residual air with no additional findings. The abdomen was soft, nontender, nondistended. We then prepped and draped the right ear in a standard surgical fashion. 1% lidocaine was then used to anesthetize the lesion along the inner aspect of the tragus. The lesion was then fully excised encompassing approximately 1 cm using a 15 blade. The skin edges were then reapproximated using 4-0 Prolene interrupted sutures. The patient tolerated the procedure well. The option would be given to him to proceed with another colonoscopy in approximately 1 year; however, due to his age and a low likelihood of a colonic malignancy he may decide on not proceeding with any more screening colonoscopies. We will have him follow up in the office in one week to remove the sutures along the ear. Job ID: [id number] DocumentID: [id number] Dictated Date: 11/27/2019 11:17:20 Professor Of Management Date: 11/27/2019 14:03:36 Dictated By: TARAN CARRENO MD
[2019-11-28] MEDS ORDERED: ACET325T38 PO (10:25)
[2019-11-28] MEDS ORDERED: AMOX1TAB12 PO (10:28)
== END 2019-11-27 12:15 | disposition home or self-care (01) ==
LOC: ENDO 08:48
PROVIDERS: ATTEND Surgery
DX: Z12.11 Encounter for screening for malignant neoplasm of colon (principal); C44.212 Basal cell carcinoma of skin of right ear and external auricular canal; Z80.0 Family history of malignant neoplasm of digestive organs; K62.1 Rectal polyp; Z87.19 Personal history of other diseases of the digestive system; Z86.010 Personal history of colon polyps; K62.9 Disease of anus and rectum, unspecified; K64.1 Second degree hemorrhoids; E11.51 Type 2 diabetes mellitus with diabetic peripheral angiopathy without gangrene; E78.00 Pure hypercholesterolemia, unspecified; I11.0 Hypertensive heart disease with heart failure; I50.9 Heart failure, unspecified; I25.2 Old myocardial infarction; Z86.73 Personal history of transient ischemic attack (TIA), and cerebral infarction without residual deficits; Z85.51 Personal history of malignant neoplasm of bladder; Z79.84 Long term (current) use of oral hypoglycemic drugs; Z79.82 Long term (current) use of aspirin; Z79.899 Other long term (current) drug therapy; Z87.891 Personal history of nicotine dependence
CPT/HCPCS: 82962; 88305

== ENCOUNTER 2020-01-07 11:50 | Inpatient (IN) | payer MEDICARE ==
[~2020-01-07] VITALS: Ht 162.5 cm; Wt 74.0 kg
[~2020-01-07 11:50] MED LIST changes: +ACET325T38 PO; +AMOX1TAB12 PO
--- NOTE | 2020-01-07 12:13 | ED General ---
General Stated Complaint: DIZZINESS;SLURRED SPEECH Source of Information: Patient, Family History of Present Illness Date Seen by Provider: Jan 07, 2020 Time Seen by Provider: 12:09 Initial Comments 84-year-old male presents with some slurred speech and some feeling of dizziness. Patient reports the symptoms a been going on for about 3 days. That his slurred speech, comes and goes. Family reports that the last time this happened he was "almost septic" that he's had that happen to previous times. Patient is being treated for bladder cancer and often has UTIs. Patient denies any fever, chills, nausea or vomiting. Patient did have a CVA in 2012. Patient denies any focal weakness. Allergies and Home Medications Allergies Coded Allergies: No Known Drug Allergies (Unverified , 06/21/19) Home Medications Acetaminophen 325 Mg Tablet, 650 MG PO Q8H PRN for PAIN-MILD (1-4), (Reported) Amoxicillin/Potassium Clav 1 Each Tablet, 1 EA PO BID, (Reported) FILLED 11-27-2019 #10/5 DAY SUPPLY Aspirin 325 Mg Tablet, 325 MG PO HS, (Reported) Glimepiride 1 Mg Tablet, 1 MG PO DAILY, (Reported) Losartan Potassium 25 Mg Tablet, 25 MG PO DAILY, (Reported) Lutein/Zeaxanthin 1 Each Capsule, 1 EACH PO HS, (Reported) Pantoprazole Sodium 40 Mg Tablet.dr, 40 MG PO HS, (Reported) Pravastatin Sodium 20 Mg Tablet, 20 MG PO DAILY, (Reported) Patient Home Medication List Home Medication List Reviewed: Yes Review of Systems Review of Systems Constitutional: No chills; dizziness; No fever EENTM: No ear pain, No blurred vision Respiratory: No cough, No short of breath Cardiovascular: No chest pain, No palpitations Gastrointestinal: No abdominal pain, No nausea, No vomiting Musculoskeletal: no symptoms reported; No back pain Skin: no symptoms reported Psychiatric/Neurological: No Symptoms Reported Hematologic/Lymphatic: See HPI Past Jtfxxzf-Skwyjq-Dfpgnq Hx Past Med/Social Hx: Reviewed Nursing Past Med/Soc Hx Patient Social History Type Used: Pipe Former Smoker, Quit: Jun 21, 2016 2nd Hand Smoke Exposure: No Recent Hopitalizations: No Immunizations Up To Date Tetanus Booster (TDap): More than 5yrs PED Vaccines UTD: No Date of Pneumonia Vaccine: Mar 19, 2018 Date of Influenza Vaccine: May 27, 2019 Seasonal Allergies Seasonal Allergies: No Past Medical History Surgeries: Yes (CATARACTS, LEFT RCR, T, LAP UMBILICAL HERNIA, R CAROTID, TURBT X3) Bladder Surgery, Tonsillectomy Respiratory: No Currently Using CPAP: No Currently Using BIPAP: No Cardiac: Yes ([place] 1991, CAROTID STENOSIS) Coronary Artery Disease, Heart Attack, High Cholesterol, Hypertension, Peripheral Vascular Neurological: Yes (2012) Stroke Reproductive Disorders: No Sexually Transmitted Disease: No HIV/AIDS: No Genitourinary: Yes (hx of BLADDER TUMOR) Benign Prostatic Hyperpl, Kidney Stones Gastrointestinal: Yes Gastroesophageal Reflux, Polyps, Hiatal Hernia Musculoskeletal: Yes (OSTEOARTHRITIS) Arthritis Endocrine: Yes Diabetes, Non-Insulin dep HEENT: Yes (GLASSES, DENTURES) Cataract Loss of Vision: Denies Hearing Impairment: Hard of Hearing 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, Skin Did You Recieve Any Treatments: Yes What Type of Treatment Did You: Surgical Intervention Psychosocial: No Integumentary: Yes (right ear lesion) Blood Disorders: No Adverse Reaction/Blood Tranf: No (N/A) Family Medical History No Pertinent Family Hx Physical Exam Vital Signs Vital Signs - First Documented 01/07/20 11:55 Temp 37.3 Pulse 74 Resp 13 B/P (MAP) 151/111 (124) Pulse Ox 96 O2 Delivery Room Air Capillary Refill : Height, Weight, BMI Height: 5'4.00" Weight: 146lbs. 0.0oz. 66.610301pd; 24.99 BMI Method: General Appearance: No Apparent Distress, WD/WN HEENT: PERRL/EOMI, TMs Normal Neck: Full Range of Motion, Normal Inspection Respiratory: Chest Non Tender, Lungs Clear, Normal Breath Sounds Cardiovascular: Regular Rate, Rhythm, No Edema Gastrointestinal: Non Tender, Soft Back: Normal Inspection Extremity: Normal Capillary Refill, Normal Range of Motion Neurologic/Psychiatric: Alert, Oriented x3, Normal Mood/Affect, cook vegetable II-XII Norm as Tested Skin: Normal Color, Warm/Dry Focused Exam Lactate Level 01/07/20 12:22: Lactic Acid Level 1.36 Lactic Acid Level Laboratory Tests Test 01/07/20 12:22 Lactic Acid Level 1.36 MMOL/L (0.50-2.00) Progress/Results/Core Measures Suspected Sepsis SIRS Temperature: Pulse: Respiratory Rate: Laboratory Tests 01/07/20 12:07: White Blood Count 10.3 Blood Pressure / Mean: 01/07/20 12:22: Lactic Acid Level 1.36 Laboratory Tests 01/07/20 12:07: Creatinine 1.62H, Platelet Count 329, Total Bilirubin 0.6 Results/Orders Lab Results Laboratory Tests Test 01/07/20 12:07 01/07/20 12:22 Range/Units White Blood Count 10.3 4.3-11.0 10^3/uL Red Blood Count 4.50 4.35-5.85 10^6/uL Hemoglobin 13.5 13.3-17.7 G/DL Hematocrit 41 40-54 % Mean Corpuscular Volume 91 80-99 FL Mean Corpuscular Hemoglobin 30 25-34 PG Mean Corpuscular Hemoglobin Concent 33 32-36 G/DL Red Cell Distribution Width 13.3 10.0-14.5 % Platelet Count 329 130-400 10^3/uL Mean Platelet Volume 10.0 7.4-10.4 FL Sodium Level 137 135-145 MMOL/L Potassium Level 4.6 3.6-5.0 MMOL/L Chloride Level 106 98-107 MMOL/L Carbon Dioxide Level 21 21-32 MMOL/L Anion Gap 10 5-14 MMOL/L Blood Urea Nitrogen 27 H 7-18 MG/DL Creatinine 1.62 H 0.60-1.30 MG/DL Estimat Glomerular Filtration Rate 41 BUN/Creatinine Ratio 17 Glucose Level 153 H 70-105 MG/DL Glucometer 144 H 70-110 MG/DL Calcium Level 9.2 8.5-10.1 MG/DL Corrected Calcium 9.0 8.5-10.1 MG/DL Total Bilirubin 0.6 0.1-1.0 MG/DL Aspartate Amino Transf (AST/SGOT) 17 5-34 U/L Alanine Aminotransferase (ALT/SGPT) 13 0-55 U/L Alkaline Phosphatase 54 40-136 U/L C-Reactive Protein High Sensitivity 0.62 H 0.00-0.50 MG/DL Total Protein 7.3 6.4-8.2 GM/DL Albumin 4.3 3.2-4.5 GM/DL Lactic Acid Level 1.36 0.50-2.00 MMOL/L My Orders Orders - RAE,GAUNAKITO L DO Chest 1 View, Ap/Pa Only (01/07/20 12:13) Ct Head Wo (01/07/20 12:13) Cbc No Diff (01/07/20 12:13) Comprehensive Metabolic Panel (01/07/20 12:13) Hs C Reactive Protein (01/07/20 12:13) Lactic Acid Analyzer (01/07/20 12:13) Ua Culture If Indicated (01/07/20 12:13) Blood Culture (01/07/20 12:13) Vital Signs/I&O 01/07/20 11:55 Temp 37.3 Pulse 74 Resp 13 B/P (MAP) 151/111 (124) Pulse Ox 96 O2 Delivery Room Air Capillary Refill : Progress Note : Time: 14:21 Progress Note Patient with a new acute on chronic stroke. It a stroke on CT is consistent with a three-day history of symptoms. Discussed with patient. We will admit him for further stroke evaluation and medication optimization. Called and discussed with Dr. Maldonado who graciously accepted patient Diagnostic Imaging Diagonstic Imaging: CT Comments [facility], [place] NAME: NETTLESCRISTINA SHARKEY [facility] REC#: [id number] PT STATUS: REG ER : 1935 PHYSICIAN: GUANAKITO RAE DO ADMIT DATE: 01/07/20/ER Draft Date of Exam:01/07/20 CT HEAD WO PROCEDURE: CT head without contrast. TECHNIQUE: Multiple contiguous axial images were obtained through the brain without the use of intravenous contrast. Auto Exposure Controls were utilized during the CT exam to meet ALARA standards for radiation dose reduction. INDICATION: Dizziness with intermittent slurred speech. These symptoms have been present for 2 days. Patient has had a remote stroke in 2012. Study compared with exam 06/22/2015 FINDINGS: There is no intracranial hemorrhage and there is no hydrocephalus. Previous exam showed a high right posterior frontal parietal junction infarct with regional encephalomalacia. Along its periphery there has been progressive parenchymal edema and low-attenuation. Its occipital component appeared stable. Old infarcts in the cerebellar hemispheres chronic. No hydrocephalus. No shift of the midline structures. No herniation. IMPRESSION: There is likely progressive ischemic changes in the high right posterior parietal lobe at the level of the sky radiata and centrum semiovale peripheral to a remote infarct. The new changes are likely subacute recent ischemia along the posterior right MCA territory superiorly without mass effect or hemorrhagic component. [facility] [place], [place] NAME: CRISTINA NETTLES [facility] REC#: [id number] PT STATUS: REG ER : 1935 PHYSICIAN: GUANAKITO RAE DO ADMIT DATE: 01/07/20/ER Draft Date of Exam:01/07/20 CHEST 1 VIEW, AP/PA ONLY INDICATION: Dizziness. COMPARISON: 11/27/2019. FINDINGS: Portable chest shows lungs to be well-aerated and clear. Heart is not enlarged. No pulmonary edema or hilar adenopathy. No pneumothorax or pleural effusion. No bony abnormalities. IMPRESSION: Normal portable chest. Departure Communication (Admissions) Time/Spoke to Admitting Phy: 14:11 Impression Primary Impression: CVA (cerebral vascular accident) Qualified Codes: I63.439 - Cerebral infarction due to embolism of unspecified posterior cerebral artery Disposition: ADMITTED INPATIENT Condition: Stable Admissions Decision to Admit Reason: Admit from ER (General) Decision to Admit/Date: Jan 07, 2020 Time/Decision to Admit Time: 14:10 Departure-Patient Inst. Referrals: ROSANGELA DEMARCO MD (PCP/Family) Primary Care Physician GUANAKITO RAE DO Jan 07, 2020 12:13
[2020-01-07 12:21] LABS: HEMOGLOBIN 13.5 G/DL (13.3-17.7); RED CELL DISTRIBUTION WIDTH 13.3 % (10.0-14.5); WHITE BLOOD COUNT 10.3 10^3/uL (4.3-11.0)
[2020-01-07 12:28] LABS: ALBUMIN 4.3 GM/DL (3.2-4.5); POTASSIUM 4.6 MMOL/L (3.6-5.0)
[2020-01-07 12:30] LABS: CALCIUM 9.2 MG/DL (8.5-10.1)
[2020-01-07 12:31] LABS: TOTAL PROTEIN 7.3 GM/DL (6.4-8.2)
[2020-01-07 12:33] LABS: BILIRUBIN,TOTAL 0.6 MG/DL (0.1-1.0)
[2020-01-07 12:34] LABS: CREATININE SERUM 1.62 MG/DL (0.60-1.30)
--- NOTE | 2020-01-07 13:17 | Diagnostic Imaging Report ---
INDICATION: Dizziness. COMPARISON: 11/27/2019. FINDINGS: Portable chest shows lungs to be well-aerated and clear. Heart is not enlarged. No pulmonary edema or hilar adenopathy. No pneumothorax or pleural effusion. No bony abnormalities. IMPRESSION: Normal portable chest. Dictated by: Dictated on workstation # [id number]
--- NOTE | 2020-01-07 13:53 | Diagnostic Imaging Report ---
PROCEDURE: CT head without contrast. TECHNIQUE: Multiple contiguous axial images were obtained through the brain without the use of intravenous contrast. Auto Exposure Controls were utilized during the CT exam to meet ALARA standards for radiation dose reduction. INDICATION: Dizziness with intermittent slurred speech. These symptoms have been present for 2 days. Patient has had a remote stroke in 2012. Study compared with exam 06/22/2015 FINDINGS: There is no intracranial hemorrhage and there is no hydrocephalus. Previous exam showed a high right posterior frontal parietal junction infarct with regional encephalomalacia. Along its periphery there has been progressive parenchymal edema and low-attenuation. Its occipital component appeared stable. Old infarcts in the cerebellar hemispheres chronic. No hydrocephalus. No shift of the midline structures. No herniation. IMPRESSION: There is likely progressive ischemic changes in the high right posterior parietal lobe at the level of the sky radiata and centrum semiovale peripheral to a remote infarct. The new changes are likely subacute recent ischemia along the posterior right MCA territory superiorly without mass effect or hemorrhagic component. Results discussed with the Emergency Room physician. Dictated by: Dictated on workstation # [id number]
--- OUTSIDE RECORDS SUMMARY | 2020-01-07 15:01 | XMS REPORT | Continuity of Care Document ---
Author Organization Unknown Address Unknown Phone Unavailable Allergies Active Description Code Type Severity Reaction Onset Reported/Identified Relationship to Patient Clinical Status Yes No Known Drug Allergies [id number] Drug Allergy Unknown N/A 06/21/2019 Medications There is no data. 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 09/09/2012 Ot 428.0 EMA ESTIVE HEART [...] 09/14/2012 Ot 414.01 COR ONARY ATHEROSCLEROSIS OF [place] CORON 09/14/2012 Ot 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 [...] 09/15/2014 Ot V72.83 09/15/2014 Ot V74.8 10/14/2014 AUBREY SOLARES DIRECTOR OF MECHANICAL ENGINEERING Ot 272.4 10/14/2014 AUBREY SOLARES DIRECTOR OF MECHANICAL ENGINEERING Ot 305.1 10/14/2014 AUBREY SOLARES DIRECTOR OF MECHANICAL ENGINEERING Ot 401.9 10/14/2014 BAIAUBREY KENYON DIRECTOR OF MECHANICAL ENGINEERING Ot 414.00 10/14/2014 BAIAUBREY KENYON L DIRECTOR OF MECHANICAL ENGINEERING Ot 414.8 10/14/2014 BAIAUBREY KENYON L DIRECTOR OF MECHANICAL ENGINEERING Ot 433.10 10/31/2014 BAIAUBREY KENYON L DIRECTOR OF MECHANICAL ENGINEERING Ot 272.4 10/31/2014 BAIAUBREY KENYON L DIRECTOR OF MECHANICAL ENGINEERING Ot 305.1 10/31/2014 BAIAUBREY KENYON L DIRECTOR OF MECHANICAL ENGINEERING Ot 401.9 10/31/2014 BAIMAAUBREY L DIRECTOR OF MECHANICAL ENGINEERING Ot 414.00 10/31/2014 BAIMAAUBREY L DIRECTOR OF MECHANICAL ENGINEERING Ot 414.8 10/31/2014 BAIAUBREY KENYON L DIRECTOR OF MECHANICAL ENGINEERING Ot 433.10 01/02/2015 TARAN CARRENO MD Ot 562.10 DIVERTICULOSIS COLON (W/O MENT OF HEMORR 01/02/2015 TARAN CARRENO MD Ot 569.0 ANAL RECTAL POLYP 01/02/2015 TARAN CARRENO MD Ot V16.0 FAMILY HX-GI MALIGNANCY 01/02/2015 TARAN CARRENO MD Ot V76.51 SCREEN MAL NEOP-COLON 06/25/2015 ROSANGELA [...] CONTUSION OF LEFT ELBOW, INITIAL ENCOUNT 06/25/2015 NILAM GAVIN, ROSANGELA Connors Ot W19.XXXA UNSPECIFIED FALL, INITIAL ENCOUNTER 06/25/2015 NILAM GAVIN, ROSANGELA Connors Ot Y92.0 02 BATHRM OF UNSP NON-INSTITUT RESDNCE SNGL 06/25/2015 ROSANGELA DEMARCO MD Ot Z86.7 3 PRSNL HX OF TIA (TIA), AND CEREB INFRC W 08/24/2015 ROSANGELA DEMARCO MD Ot N39.0 07/15/2016 Ot 397.0 TRIC USPID VALVE DISEASE 07/15/2016 Ot 424.0 MITR AL VALVE DISORDER 07/15/2016 Ot 425.4 PRIM CARDIOMYOPATHY NEC 07/15/2016 Ot 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 07/15/2016 Ot V72.81 [id number] CARDIOVASCULAR 07/15/2016 Ot V74.8 SCRE EN-BACTERIAL DIS [...] EN-BACTERIAL DIS NEC 07/15/2016 BAIMA, AUBREY L DIRECTOR OF MECHANICAL ENGINEERING Ot 272.4 HYPERLIPIDEMIA NEC/NOS 07/15/2016 BAIMA, AUBREY L DIRECTOR OF MECHANICAL ENGINEERING Ot 305.1 TOBACCO USE DISORDER 07/15/2016 BAIMA, AUBREY L DIRECTOR OF MECHANICAL ENGINEERING Ot 401.9 HYPERTENSION NOS 07/15/2016 BRADLEYMA AUBREY L DIRECTOR OF MECHANICAL ENGINEERING Ot 414.00 CORON ATHEROSCLER NOS TYPE VESSEL, NATIV 07/15/2016 BRADLEYMA AUBREY L DIRECTOR OF MECHANICAL ENGINEERING Ot 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 DIS NEC 07/15/2016 BECK AUBREY L DIRECTOR OF MECHANICAL ENGINEERING Ot 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 ARTERY OCCLUSION W O CEREBRAL IN 07/15/2016 WAI GAVIN, TARAN Ot V72.84 EXAM PRE-OPERATIVE NOS 07/15/2016 NILAM GAVIN, ROSANGELA Connors Ot N39.0 URINARY TRACT INFECTION, SITE NOT SPECIF 07/15/2016 Ot 397.0 TRIC USPID VALVE DISEASE 07/15/2016 Ot 424.0 MITR AL VALVE DISORDER 07/15/2016 Ot 425.4 PRIM CARDIOMYOPATHY NEC 07/15/2016 Ot 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 07/15/2016 Ot V72.81 [id number] CARDIOVASCULAR 07/15/2016 Ot V74.8 SCRE EN-BACTERIAL DIS [...] EN-BACTERIAL DIS NEC 07/15/2016 BAIMA, AUBREY L DIRECTOR OF MECHANICAL ENGINEERING Ot 272.4 HYPERLIPIDEMIA NEC/NOS 07/15/2016 BAIMA, AUBREY L DIRECTOR OF MECHANICAL ENGINEERING Ot 305.1 TOBACCO USE DISORDER 07/15/2016 BAIMA, AUBREY L DIRECTOR OF MECHANICAL ENGINEERING Ot 401.9 HYPERTENSION NOS 07/15/2016 BAIMA, AUBREY L DIRECTOR OF MECHANICAL ENGINEERING Ot 414.00 CORON ATHEROSCLER NOS TYPE VESSEL, NATIV 07/15/2016 BAIMA, AUBREY L DIRECTOR OF MECHANICAL ENGINEERING Ot 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 DIS NEC 07/15/2016 BAIMA, AUBREY L DIRECTOR OF MECHANICAL ENGINEERING Ot 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 ARTERY OCCLUSION W O CEREBRAL IN 07/15/2016 TARAN CARRENO MD Ot V72.84 EXAM PRE-OPERATIVE NOS 07/15/2016 ROSANGELA [...] DIABETES MELLITUS WITH HYPERGLYCE 10/07/2016 ROSANGELA DEMARCO MD Ot 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 10/07/2016 ROSANGELA DEMARCO MD Ot E11.6 5 TYPE 2 DIABETES MELLITUS WITH HYPERGLYCE 10/13/2016 ROSANGELA DEMARCO MD Ot 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 10/13/2016 NILAM GAVIN, ROSANGELA Connors Ot E11.6 5 TYPE 2 DIABETES MELLITUS WITH HYPERGLYCE 03/17/2017 MARIUSZ GAVIN FACC, ALI FACP CCDS Ot E78.4 OTHER HYPERLIPIDEMIA 03/17/2017 MARIUSZ VAZQUEZC, ALI FACP CCDS Ot I10 ESSENTIAL (PRIMARY) HYPERTENSION 03/17/2017 MARIUSZ GAVIN FACC, ALI FACP CCDS Ot I25.10 ATHSCL HEART DISEASE OF [place] CORONARY 03/17/2017 MARIUSZ VAZQUEZC, ALI FACP CCDS Ot I25.5 ISCHEMIC CARDIOMYOPATHY 03/17/2017 MARIUSZ VAZQUEZC, ALI FACP CCDS Ot I65.23 OCCLUSION AND STENOSIS OF BILATERAL [place] 03/17/2017 MARIUSZ GAVIN FACC, ALI FACP CCDS Ot Z72.0 TOBACCO USE 04/07/2017 MARIUSZ VAZQUEZC, ALI FACP CCDS Ot E78.4 OTHER HYPERLIPIDEMIA 04/07/2017 MARIUSZ VAZQUEZC, ALI FACP CCDS Ot I10 ESSENTIAL (PRIMARY) HYPERTENSION 04/07/2017 MARIUSZ GAVIN FACC, ALI FACP CCDS Ot I25.10 ATHSCL HEART DISEASE OF [place] CORONARY 04/07/2017 MARIUSZ GAVIN FACC, ALI FACP CCDS Ot I25.5 ISCHEMIC CARDIOMYOPATHY 04/07/2017 MARIUSZ GAVIN FACC, ALI FACP CCDS Ot I65.23 OCCLUSION AND STENOSIS OF BILATERAL [place] 04/07/2017 MARIUSZ GAVIN FACC, ALI FACP CCDS Ot Z72.0 TOBACCO USE 04/12/2017 MARIUSZ GAVIN FACC, ALI FACP CCDS Ot E78.4 OTHER HYPERLIPIDEMIA 04/12/2017 MARIUSZ GAVIN FACC, ALI FACP CCDS Ot I10 ESSENTIAL (PRIMARY) HYPERTENSION 04/12/2017 MARIUSZ GAVIN FACC, ALI FACP CCDS Ot I25.10 ATHSCL HEART DISEASE OF [place] CORONARY 04/12/2017 MARIUSZ GAVIN FACC, ALI FACP CCDS Ot I25.5 ISCHEMIC CARDIOMYOPATHY 04/12/2017 MARIUSZ VAZQUEZC, ALI FACP CCDS Ot I65.23 OCCLUSION AND STENOSIS OF BILATERAL [place] 04/12/2017 MARIUSZ GAVIN FACC, ALI FACP CCDS Ot Z72.0 TOBACCO USE 04/19/2017 MARIUSZ GAVIN FACC, ALI FACP CCDS Ot E78.4 OTHER HYPERLIPIDEMIA 04/19/2017 MARIUSZ GAVIN FAC, ALI FACP CCDS Ot I10 ESSENTIAL (PRIMARY) HYPERTENSION 04/19/2017 MARIUSZ GAVIN FACC, ALI FACP CCDS Ot I25.10 ATHSCL HEART DISEASE OF [place] CORONARY 04/19/2017 MARIUSZ GAVIN FACC, ALI FACP CCDS Ot I25.5 ISCHEMIC CARDIOMYOPATHY 04/19/2017 MARIUSZ GAVIN FACC, ALI FACP CCDS Ot I65.23 OCCLUSION AND STENOSIS OF BILATERAL [place] 04/19/2017 MARIUSZ GAVIN FACC, ALI FACP CCDS Ot Z72.0 TOBACCO USE 05/01/2017 MARIUSZ GAVIN FACC, ALI FACP CCDS Ot E78.4 OTHER HYPERLIPIDEMIA 05/01/2017 MARIUSZ GAVIN FACC, ALI FACP CCDS Ot I10 ESSENTIAL (PRIMARY) HYPERTENSION 05/01/2017 MARIUSZ GAVIN FAC, ALI FACP CCDS Ot I25.10 ATHSCL HEART DISEASE OF [place] CORONARY 05/01/2017 MARIUSZ GAVIN FAC, ALI FACP CCDS Ot I25.5 ISCHEMIC CARDIOMYOPATHY 05/01/2017 MARIUSZ GAVIN [facility], ALI FACP CCDS Ot I65.23 OCCLUSION AND STENOSIS OF BILATERAL [place] 05/01/2017 MARIUSZ GAVIN FAC, ALI FACP CCDS Ot Z72.0 TOBACCO USE 08/01/2017 Ot 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 08/01/2017 Ot V72.81 [id number] CARDIOVASCULAR 08/01/2017 Ot V74.8 SCRE EN-BACTERIAL DIS [...] EN-BACTERIAL DIS NEC 08/01/2017 BAIMA, AUBREY L DIRECTOR OF MECHANICAL ENGINEERING Ot 272.4 HYPERLIPIDEMIA NEC/NOS 08/01/2017 BAIMA, AUBREY L DIRECTOR OF MECHANICAL ENGINEERING Ot 305.1 TOBACCO USE DISORDER 08/01/2017 BAIMA, AUBREY L DIRECTOR OF MECHANICAL ENGINEERING Ot 401.9 HYPERTENSION NOS 08/01/2017 AUBREY SOLARES DIRECTOR OF MECHANICAL ENGINEERING Ot 414.00 CORON ATHEROSCLER NOS TYPE VESSEL, NATIV 08/01/2017 AUBREY SOLARES DIRECTOR OF MECHANICAL ENGINEERING Ot 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 DIS NEC 08/01/2017 AUBREY SOLARES DIRECTOR OF MECHANICAL ENGINEERING Ot 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 ARTERY OCCLUSION W O [...] CCDS Ot I25.10 ATHSCL HEART DISEASE OF [place] CORONARY 08/01/2017 MARIUSZ GAVIN FACC, ALI FACP [...] CCDS Ot I25.10 ATHSCL HEART DISEASE OF [place] CORONARY 08/01/2017 MARIUSZ GVAIN FACC, ALI FACP CCDS Ot I25.5 ISCHEMIC [...] Ot I25.1 0 ATHSCL HEART DISEASE OF [place] CORONARY 08/15/2017 YRIS AVILA MD Ot I25.2 OLD MYOCARDIAL INFARCTION 08/15/2017 YRIS AVILA MD Ot 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 08/15/2017 YRIS AVILA MD Ot N40.0 BENIGN PROSTATIC HYPERPLASIA WITHOUT LOW 08/15/2017 YRIS AVILA MD, Ot Z79.8 2 SOLAR PROJECT MANAGER (CURRENT) USE OF ASPIRIN 08/15/2017 YRIS AVILA MD Ot Z79.8 99 OTHER SOLAR PROJECT MANAGER (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 THERAPY 08/21/2017 YRIS AVILA MD Ot 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 08/21/2017 YRIS AVILA MD Ot E11.9 TYPE 2 DIABETES MELLITUS WITHOUT COMPLIC 08/21/2017 YRIS AVILA MD Ot F17.2 90 NICOTINE DEPENDENCE, OTHER TOBACCO PRODU 08/21/2017 YRIS AVILA MD Ot I10 ESSENTIAL (PRIMARY) HYPERTENSION 08/21/2017 YRIS AVILA MD, Ot I25.1 0 ATHSCL HEART DISEASE OF [place] CORONARY 08/21/2017 YRIS AVILA MD Ot I25.2 OLD MYOCARDIAL INFARCTION 08/21/2017 YRIS AVILA MD Ot 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 08/21/2017 YRIS AVILA MD Ot N40.0 BENIGN PROSTATIC HYPERPLASIA WITHOUT LOW 08/21/2017 YRIS AVILA MD, Ot Z79.8 2 SOLAR PROJECT MANAGER (CURRENT) USE OF ASPIRIN 08/21/2017 YRIS AVILA MD, Ot Z79.8 99 OTHER ASSISTED (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 THERAPY 08/24/2017 YRIS AVILA MD Ot 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 08/24/2017 YRIS AVILA MD Ot E11.9 TYPE 2 DIABETES MELLITUS WITHOUT COMPLIC 08/24/2017 YRIS AVILA MD Ot F17.2 90 NICOTINE DEPENDENCE, OTHER TOBACCO PRODU 08/24/2017 YRIS AVILA MD Ot I10 ESSENTIAL (PRIMARY) HYPERTENSION 08/24/2017 YRIS AVILA MD, Ot I25.1 0 ATHSCL HEART DISEASE OF [place] CORONARY 08/24/2017 YRIS AVILA MD, Ot I25.2 OLD MYOCARDIAL INFARCTION 08/24/2017 YRIS AVILA MD Ot 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 08/24/2017 YRIS AVILA MD, Ot N40.0 BENIGN PROSTATIC HYPERPLASIA WITHOUT LOW 08/24/2017 YRIS AVILA MD Ot Z79.8 2 SOLAR PROJECT MANAGER (CURRENT) USE OF ASPIRIN 08/24/2017 YRIS AVILA MD, Ot Z79.8 99 OTHER ASSISTED (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 THERAPY 08/29/2017 YRIS AVILA MD Ot N20.0 CALCULUS OF KIDNEY 08/30/2017 YRIS AVILA MD, Ot N20.0 CALCULUS OF KIDNEY 08/29/2018 YRIS AVILA MD Ot Z01.8 18 ENCOUNTER FOR OTHER PREPROCEDURAL EXAMIN 08/30/2018 YRIS AVILA MD, Ot Z01.8 18 ENCOUNTER FOR OTHER PREPROCEDURAL EXAMIN 09/04/2018 AUBREY SOLARES DIRECTOR OF MECHANICAL ENGINEERING Ot 272.4 HYPERLIPIDEMIA NEC/NOS 09/04/2018 AUBREY SOLARES DIRECTOR OF MECHANICAL ENGINEERING Ot 305.1 TOBACCO USE DISORDER 09/04/2018 AUBREY SOLARES DIRECTOR OF MECHANICAL ENGINEERING Ot 401.9 HYPERTENSION NOS 09/04/2018 AUBREY SOLARES DIRECTOR OF MECHANICAL ENGINEERING Ot 414.00 CORON ATHEROSCLER NOS TYPE VESSEL, NATIV 09/04/2018 AUBREY SOLARES DIRECTOR OF MECHANICAL ENGINEERING Ot 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 DIS NEC 09/04/2018 AUBREY SOLARES DIRECTOR OF MECHANICAL ENGINEERING Ot 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 ARTERY OCCLUSION W O CEREBRAL IN 09/04/2018 WAI GAVIN, TARAN Ot V72.84 EXAM PRE-OPERATIVE NOS 09/04/2018 NILAM GAVIN, ROSANGELA Connors Ot N39.0 URINARY TRACT INFECTION, SITE NOT SPECIF 09/04/2018 MARIUSZ GAVIN FAC, ALI FACP CCDS Ot E78.4 OTHER HYPERLIPIDEMIA 09/04/2018 MARIUSZ GAVIN FACC, ALI FACP CCDS Ot I10 ESSENTIAL (PRIMARY) HYPERTENSION 09/04/2018 MARIUSZ GAVIN FACC, ALI FACP CCDS Ot I25.10 ATHSCL HEART DISEASE OF [place] CORONARY 09/04/2018 MARIUSZ GAVIN FACC, ALI FACP [...] I10 ESSENTIAL (PRIMARY) HYPERTENSION 09/04/2018 MARIUSZ GAVIN [facility], ALI FACP CCDS Ot I25.10 ATHSCL HEART DISEASE OF [place] CORONARY 09/04/2018 MARIUSZ GAVIN [facility], ALI FACP CCDS Ot I25.5 ISCHEMIC CARDIOMYOPATHY 09/04/2018 MARIUSZ GAVIN [facility], ALI FACP CCDS Ot I65.23 OCCLUSION AND STENOSIS OF BILATERAL [place] 09/04/2018 MARIUSZ GAVIN [facility], ALI FACP CCDS Ot Z72.0 TOBACCO USE 09/04/2018 YRIS AVILA MD Ot N20.0 CALCULUS OF KIDNEY 09/04/2018 YRIS AVILA MD Ot 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 09/04/2018 YRIS AVILA MD Ot 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 09/04/2018 YRIS AVILA MD Ot I10 ESSENTIAL (PRIMARY) HYPERTENSION 09/04/2018 YRIS AVILA MD Ot I25.1 0 ATHSCL HEART DISEASE OF [place] CORONARY 09/04/2018 YRIS AVILA MD, Ot I25.2 OLD MYOCARDIAL INFARCTION 09/04/2018 YRIS AVILA MD Ot K21.9 GASTRO-ESOPHAGEAL REFLUX DISEASE WITHOUT 09/04/2018 YRIS AVILA MD Ot K44.9 DIAPHRAGMATIC HERNIA WITHOUT OBSTRUCTION 09/04/2018 YRIS AVILA MD, Ot Z79.8 2 SOLAR PROJECT MANAGER (CURRENT) USE OF ASPIRIN 09/04/2018 YRIS AVILA MD, Ot Z79.8 4 SOLAR PROJECT MANAGER (CURRENT) USE OF ORAL HYPOGLYC 09/04/2018 YRIS AVILA MD, Ot Z79.8 99 OTHER SOLAR PROJECT MANAGER (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 THERAPY 09/04/2018 YRIS AVILA MD, [...] Ot I25.1 0 ATHSCL HEART DISEASE OF [place] CORONARY 09/06/2018 YRIS AVILA MD, Ot I25.2 OLD MYOCARDIAL INFARCTION 09/06/2018 YRIS AVILA MD, Ot K21.9 GASTRO-ESOPHAGEAL REFLUX DISEASE WITHOUT 09/06/2018 YRIS AVILA MD, Ot K44.9 DIAPHRAGMATIC HERNIA WITHOUT OBSTRUCTION 09/06/2018 YRIS AVILA MD, Ot Z79.8 2 SOLAR PROJECT MANAGER (CURRENT) USE OF ASPIRIN 09/06/2018 YRIS AVILA MD Ot Z79.8 4 ASSISTED (CURRENT) USE OF ORAL HYPOGLYC 09/06/2018 YRIS AVILA MD, Ot Z79.8 99 OTHER SOLAR PROJECT MANAGER (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 THERAPY 09/06/2018 YRIS AVILA MD, Ot Z86.7 3 PRSNL HX OF TIA (TIA), AND CEREB INFRC W 09/06/2018 YRIS AVILA MD Ot Z87.8 91 PERSONAL HISTORY OF NICOTINE DEPENDENCE 09/06/2018 YRIS AVILA MD Ot 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 09/06/2018 YRIS AVILA MD Ot 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 09/06/2018 YRIS AVILA MD Ot I10 ESSENTIAL (PRIMARY) HYPERTENSION 09/06/2018 YRIS AVILA MD, Ot I25.1 0 ATHSCL HEART DISEASE OF [place] CORONARY 09/06/2018 YRIS AVILA MD, Ot I25.2 OLD MYOCARDIAL INFARCTION 09/06/2018 YRIS AVILA MD, Ot K21.9 GASTRO-ESOPHAGEAL REFLUX DISEASE WITHOUT 09/06/2018 YRIS AVILA MD, Ot K44.9 DIAPHRAGMATIC HERNIA WITHOUT OBSTRUCTION 09/06/2018 YRIS AVILA MD, Ot Z79.8 2 ASSISTED (CURRENT) USE OF ASPIRIN 09/06/2018 YRIS AVILA MD, Ot Z79.8 4 ASSISTED (CURRENT) USE OF ORAL HYPOGLYC 09/06/2018 YRIS AVILA MD, Ot Z79.8 99 OTHER SOLAR PROJECT MANAGER (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 THERAPY 09/06/2018 YRIS AVILA MD, Ot Z86.7 3 PRSNL HX OF TIA (TIA), AND CEREB INFRC W 09/06/2018 YRIS AVILA MD, Ot Z87.8 91 PERSONAL HISTORY OF NICOTINE DEPENDENCE 11/20/2018 NILAM GAVIN, ROSANGELA Connors Ot R05 COUGH 11/29/2018 ROSANGELA DEMARCO MD Ot R05 COUGH 05/15/2019 OSITO SOLARESHER L DIRECTOR OF MECHANICAL ENGINEERING Ot E78.5 HYPERLIPIDEMIA, UNSPECIFIED 05/15/2019 BAIMAOSITOAUBREY L DIRECTOR OF MECHANICAL ENGINEERING Ot I11.9 HYPERTENSIVE HEART DISEASE WITHOUT HEART 05/15/2019 BAIMAAUBREY L DIRECTOR OF MECHANICAL ENGINEERING Ot I25.10 ATHSCL HEART DISEASE OF [place] CORONARY 05/15/2019 BAIMA AUBERY L DIRECTOR OF MECHANICAL ENGINEERING Ot I34.0 NONRHEUMATIC MITRAL (VALVE) INSUFFICIENC 05/15/2019 BAIMA AUBREY L DIRECTOR OF MECHANICAL ENGINEERING Ot I65.23 OCCLUSION AND STENOSIS OF BILATERAL [place] 06/03/2019 BAIMA, AUBREY L DIRECTOR OF MECHANICAL ENGINEERING Ot E78.5 HYPERLIPIDEMIA, UNSPECIFIED 06/03/2019 BAIMA, AUBREY L DIRECTOR OF MECHANICAL ENGINEERING Ot I11.9 HYPERTENSIVE HEART DISEASE WITHOUT HEART 06/03/2019 BAIMA AUBREY L DIRECTOR OF MECHANICAL ENGINEERING Ot I25.10 ATHSCL HEART DISEASE OF [place] CORONARY 06/03/2019 BAIMA AUBREY L DIRECTOR OF MECHANICAL ENGINEERING Ot I34.0 NONRHEUMATIC MITRAL (VALVE) INSUFFICIENC 06/03/2019 BAIMA, AUBREY L DIRECTOR OF MECHANICAL ENGINEERING Ot I65.23 OCCLUSION AND STENOSIS OF BILATERAL [place] 06/07/2019 BAIMA, AUBREY L DIRECTOR OF MECHANICAL ENGINEERING Ot E78.5 HYPERLIPIDEMIA, UNSPECIFIED 06/07/2019 BAIMA, AUBREY L DIRECTOR OF MECHANICAL ENGINEERING Ot I11.9 HYPERTENSIVE HEART DISEASE WITHOUT HEART 06/07/2019 BAIMA, AUBREY L DIRECTOR OF MECHANICAL ENGINEERING Ot I25.10 ATHSCL HEART DISEASE OF [place] CORONARY 06/07/2019 BAIMA, AUBREY L DIRECTOR OF MECHANICAL ENGINEERING Ot I34.0 NONRHEUMATIC MITRAL (VALVE) INSUFFICIENC 06/07/2019 BAIMA, AUBREY L DIRECTOR OF MECHANICAL ENGINEERING Ot I65.23 OCCLUSION AND STENOSIS OF BILATERAL [place] 06/13/2019 BAIMA, AUBREY L DIRECTOR OF MECHANICAL ENGINEERING Ot E78.5 HYPERLIPIDEMIA, UNSPECIFIED 06/13/2019 BAIMA, AUBREY L DIRECTOR OF MECHANICAL ENGINEERING Ot I11.9 HYPERTENSIVE HEART DISEASE WITHOUT HEART 06/13/2019 BAIMA, AUBREY L DIRECTOR OF MECHANICAL ENGINEERING Ot I25.10 ATHSCL HEART DISEASE OF [place] CORONARY 06/13/2019 BAIMA, AUBREY L DIRECTOR OF MECHANICAL ENGINEERING Ot I34.0 NONRHEUMATIC MITRAL (VALVE) INSUFFICIENC 06/13/2019 BAIMA, AUBREY L DIRECTOR OF MECHANICAL ENGINEERING Ot I65.23 OCCLUSION AND STENOSIS OF BILATERAL [place] 06/21/2019 ROSANGELA DEMARCO MD Ot 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 06/21/2019 ROSANGELA EDMARCO MD Ot E11.6 5 TYPE 2 DIABETES MELLITUS WITH HYPERGLYCE 06/21/2019 YRIS AVILA MD Ot Z01.8 18 ENCOUNTER FOR OTHER PREPROCEDURAL EXAMIN 06/23/2019 YRIS AVILA MD, Ot K57.3 0 DVRTCLOS OF LG INT W/O PERFORATION OR AB 06/23/2019 YRIS AVILA MD Ot N20.0 CALCULUS OF KIDNEY 06/23/2019 YRIS AVILA MD, Ot Z85.5 1 PERSONAL HISTORY OF MALIGNANT NEOPLASM O 06/26/2019 YRIS AVILA MD, Ot K57.3 0 DVRTCLOS OF LG INT W/O PERFORATION OR AB 06/26/2019 YRIS AVILA MD, Ot N20.0 CALCULUS OF KIDNEY 06/26/2019 YRIS AVILA MD, Ot Z85.5 1 PERSONAL HISTORY OF MALIGNANT NEOPLASM O 06/26/2019 YRIS AVILA MD Ot C67.9 MALIGNANT NEOPLASM OF [place]AD[place], UNSPECIFI 06/26/2019 YRIS AVILA MD Ot 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 06/26/2019 YRIS AVILA MD Ot 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 06/26/2019 YRIS AVILA MD, Ot E78.0 0 PURE HYPERCHOLESTEROLEMIA, UNSPECIFIED 06/26/2019 YRIS AVILA MD Ot E78.5 HYPERLIPIDEMIA, UNSPECIFIED 06/26/2019 YRIS AVILA MD Ot I11.0 HYPERTENSIVE HEART DISEASE WITH HEART FA 06/26/2019 YRIS AVILA MD, Ot I25.1 0 ATHSCL HEART DISEASE OF [place] CORONARY 06/26/2019 YRIS AVILA MD, Ot I25.2 OLD MYOCARDIAL INFARCTION 06/26/2019 YRIS AVILA MD, Ot I50.9 HEART FAILURE, UNSPECIFIED 06/26/2019 YRIS AVILA MD, Ot K21.9 GASTRO-ESOPHAGEAL REFLUX DISEASE WITHOUT 06/26/2019 YRIS AVILA MD, Ot Z79.8 2 ASSISTED (CURRENT) USE OF ASPIRIN 06/26/2019 YRIS AVILA MD, Ot Z79.8 99 OTHER SOLAR PROJECT MANAGER (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 THERAPY 06/26/2019 YRIS AVILA MD, Ot Z86.7 3 PRSNL HX OF TIA (TIA), AND CEREB INFRC W 06/26/2019 YRIS AVILA MD, Ot Z87.8 91 PERSONAL HISTORY OF NICOTINE DEPENDENCE 06/26/2019 YRIS AVILA MD, Ot Z90.8 9 ACQUIRED ABSENCE OF OTHER ORGANS 07/03/2019 YRIS AVILA MD Ot C67.9 MALIGNANT NEOPLASM OF [place]AD[place], UNSPECIFI 07/03/2019 YRIS AVILA MD Ot C76.4 2 MALIGNANT NEOPLASM OF LEFT [...] Ot I25.1 0 ATHSCL HEART DISEASE OF [place] CORONARY 07/03/2019 YRIS AVILA MD, Ot I25.2 OLD MYOCARDIAL INFARCTION 07/03/2019 YRIS AVILA MD, Ot I50.9 HEART FAILURE, UNSPECIFIED 07/03/2019 YRIS AVILA MD, Ot K21.9 GASTRO-ESOPHAGEAL REFLUX DISEASE WITHOUT 07/03/2019 YRIS AVILA MD, Ot Z79.8 2 ASSISTED (CURRENT) USE OF ASPIRIN 07/03/2019 YRIS AVILA MD, Ot Z79.8 99 OTHER ASSISTED (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 THERAPY 07/03/2019 YRIS AVILA MD, [...] 1 PERSONAL HISTORY OF MALIGNANT NEOPLASM O 11/27/2019 TARAN CARRENO MD, Ot C44.21 2 BASAL CELL CARCINOMA SKIN/ R EAR AND EXT 11/27/2019 TARAN CARRENO MD, Ot E11.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 W DIABETIC PERIPHERAL AN 11/27/2019 TARAN CARRENO MD, Ot E78.00 PURE HYPERCHOLESTEROLEMIA, UNSPECIFIED 11/27/2019 TARAN CARRENO MD, Ot I11.0 HYPERTENSIVE HEART DISEASE WITH HEART FA 11/27/2019 TARAN CARRENO MD, Ot I25.2 OLD MYOCARDIAL INFARCTION 11/27/2019 TARAN CARRENO MD, Ot I50.9 HEART FAILURE, UNSPECIFIED 11/27/2019 TARAN CARRENO MD, Ot K62.1 RECTAL POLYP 11/27/2019 TARAN CARRENO MD, Ot K62.9 DISEASE OF ANUS AND RECTUM, UNSPECIFIED 11/27/2019 TARAN CARRENO MD, Ot K64.1 SECOND DEGREE HEMORRHOIDS 11/27/2019 TARAN CARRENO MD, Ot Z12.11 ENCOUNTER FOR SCREENING FOR MALIGNANT NE 11/27/2019 TARAN CARRENO MD, Ot Z79.82 SOLAR PROJECT MANAGER (CURRENT) USE OF ASPIRIN 11/27/2019 TARAN CARRENO MD, Ot Z79.84 SOLAR PROJECT MANAGER (CURRENT) USE OF ORAL HYPOGLYC 11/27/2019 TARAN CARRENO MD, Ot Z79.89 9 OTHER ASSISTED (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 THERAPY 11/27/2019 TARNA CARRENO MD, Ot Z80.0 FAMILY HISTORY OF MALIGNANT NEOPLASM OF 11/27/2019 TARAN CARRENO MD, Ot Z85.51 PERSONAL HISTORY OF MALIGNANT NEOPLASM O 11/27/2019 TARAN CARRENO MD, Ot Z86.01 0 PERSONAL HISTORY OF COLONIC POLYPS 11/27/2019 TARAN CARRENO MD, Ot Z86.73 PRSNL HX OF TIA (TIA), AND CEREB INFRC W 11/27/2019 TARAN CARRENO MD, Ot Z87.19 PERSONAL HISTORY OF OTHER DISEASES OF TH 11/27/2019 TARAN CARRENO MD, Ot Z87.89 1 PERSONAL HISTORY OF NICOTINE DEPENDENCE 11/30/2019 TARAN CARRENO MD, Ot A41.9 SEPSIS, UNSPECIFIED ORGANISM 11/30/2019 TARAN CARRENO MD, Ot E11.9 TYPE 2 DIABETES MELLITUS WITHOUT COMPLIC 11/30/2019 TARAN CARRENO MD, Ot E78.00 PURE HYPERCHOLESTEROLEMIA, UNSPECIFIED 11/30/2019 TARAN CARRENO MD, Ot I10 ESSENTIAL (PRIMARY) HYPERTENSION 11/30/2019 TARAN CARRENO MD, Ot I25.10 ATHSCL HEART DISEASE OF [place] CORONARY 11/30/2019 TARAN CARRENO MD, Ot I25.2 OLD MYOCARDIAL INFARCTION 11/30/2019 TARAN CARRENO MD, Ot I45.2 BIFASCICULAR BLOCK 11/30/2019 TARAN CARRENO MD, Ot I73.9 PERIPHERAL VASCULAR DISEASE, UNSPECIFIED 11/30/2019 TARAN CARRENO MD, Ot K21.9 GASTRO-ESOPHAGEAL REFLUX DISEASE WITHOUT 11/30/2019 TARAN CARRENO MD, Ot K44.9 DIAPHRAGMATIC HERNIA WITHOUT OBSTRUCTION 11/30/2019 TARAN CARRENO MD, Ot K91.71 ACCIDENTAL PNCTR LAC OF A DGSTV SYS OR 11/30/2019 TARAN CARRENO MD, Ot M19.91 PRIMARY OSTEOARTHRITIS, UNSPECIFIED SITE 11/30/2019 TARAN CARRENO MD, Ot N40.0 BENIGN PROSTATIC HYPERPLASIA WITHOUT LOW 11/30/2019 TARAN CARRENO MD, Ot T81.44 XA SEPSIS FOLLOWING A PROCEDURE, INITIAL EN 11/30/2019 TARAN CARRENO MD, Ot Z66 DO NOT RESUSCITATE 11/30/2019 TARAN CARRENO MD, Ot Z90.89 ACQUIRED ABSENCE OF OTHER ORGANS 12/03/2019 TARAN CARRENO MD, Ot C44.21 2 BASAL CELL CARCINOMA SKIN/ R EAR AND EXT 12/03/2019 TARAN CARRENO MD, Ot E11.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 W DIABETIC PERIPHERAL AN 12/03/2019 TARAN CARRENO MD, Ot E78.00 PURE HYPERCHOLESTEROLEMIA, UNSPECIFIED 12/03/2019 TARAN CARRENO MD, Ot I11.0 HYPERTENSIVE HEART DISEASE WITH HEART FA 12/03/2019 TARAN CARRENO MD, Ot I25.2 OLD MYOCARDIAL INFARCTION 12/03/2019 TARAN CARRENO MD, Ot I50.9 HEART FAILURE, UNSPECIFIED 12/03/2019 TARAN CARRENO MD, Ot K62.1 RECTAL POLYP 12/03/2019 TARAN CARRENO MD, Ot K62.9 DISEASE OF ANUS AND RECTUM, UNSPECIFIED 12/03/2019 TARAN CARRENO MD, Ot K64.1 SECOND DEGREE HEMORRHOIDS 12/03/2019 TARAN CARRENO MD, Ot Z12.11 ENCOUNTER FOR SCREENING FOR MALIGNANT NE 12/03/2019 TARAN CARRENO MD, Ot Z79.82 ASSISTED (CURRENT) USE OF ASPIRIN 12/03/2019 TARAN CARRENO MD, Ot Z79.84 SOLAR PROJECT MANAGER (CURRENT) USE OF ORAL HYPOGLYC 12/03/2019 TARAN CARRENO MD, Ot Z79.89 9 OTHER SOLAR PROJECT MANAGER (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 THERAPY 12/03/2019 TARAN CARRENO MD, Ot Z80.0 FAMILY HISTORY OF MALIGNANT NEOPLASM OF 12/03/2019 TARAN CARRENO MD, Ot Z85.51 PERSONAL HISTORY OF MALIGNANT NEOPLASM O 12/03/2019 TARAN CARRENO MD, Ot Z86.01 0 PERSONAL HISTORY OF COLONIC POLYPS 12/03/2019 TARAN CARRENO MD, Ot Z86.73 PRSNL HX OF TIA (TIA), AND CEREB INFRC W 12/03/2019 TARAN CARRENO MD, Ot Z87.19 PERSONAL HISTORY OF OTHER DISEASES OF [place] 12/03/2019 TARAN CARRENO MD, Ot Z87.89 1 PERSONAL HISTORY OF NICOTINE DEPENDENCE Procedures Code Description Performed By Per formed [...] eening culture NEG NRG Coronavirus SARS-CoV-2 SO 2018 - 0 08:00 Coronavirus Ab [Units/volume] in Serum Negative Negative Serum or plasma lactate measurement (mol es/volume) - 11/27/19 01:12 Serum or plasma lactate measurement (moles/volume) 2.44 mmol/L 0.50-2.00 Capillary blood glucose measurement by g lucometer (mass/volume) - 11/27/19 09:24 Capillary blood glucose measurement by glucometer (mas s/volume) 148 mg/dL 70-110 Complete blood count (CBC) with automate d white blood cell (WBC) differential - 11/27/19 18:45 Blood leukocytes automated count (number/volume) 16.5 10*3/uL 4.3-11.0 Blood erythrocytes automated count (number/volume) 4.78 10*6/uL 4.35-5.85 Venous blood hemoglobin measurement (mass/volume) 14.6 g/dL 13.3-17.7 Blood hematocrit (volume fraction) 44 % 40-54 Automated erythrocyte mean corpuscular volume 92 [ foz_us] 80-99 Automated erythrocyte mean corpuscular h emoglobin (mass per erythrocyte) 31 pg 25-34 Automated erythrocyte mean corpuscular h emoglobin concentration measurement (mass/volume) 33 g/dL 32-36 Automated erythrocyte distribution width ratio 12. 9 % 10.0- 14.5 Automated blood platelet count (count/volume) 298 10*3/uL 130-400 Automated blood platelet mean volume measurement 10.4 [foz_us] 7.4-10.4 Automated blood neutrophils/100 leukocytes 90 % 42-75 Automated blood lymphocytes/100 leukocytes 4 % 12-44 Blood monocytes/100 leukocytes 6 % 0-12 Automated blood eosinophils/100 leukocytes 0 % 0-10 Automated blood basophils/100 leukocytes 0 % 0-10 Blood neutrophils automated count (number/volume) 14.8 10*3 1.8-7.8 Blood lymphocytes automated count (number/volume) 0.6 10*3 1.0-4.0 Blood monocytes automated count (number/volume) 1. 0 10*3 0.0-1.0 Automated eosinophil count 0.0 10*3/uL 0 .0-0.3 Automated blood basophil count (count/volume) 0.0 10*3/uL 0.0-0.1 Comprehensive metabolic panel - 11/27/19 18:45 Serum or plasma sodium measurement (moles/volume) 135 mmol/L 135-145 Serum or plasma potassium measurement (moles/volume) 4.4 mmol/L 3.6-5.0 Serum or plasma chloride measurement (moles/volume) 101 mmol/L 98-107 Carbon dioxide 21 mmol/L 21-32 Serum or plasma anion gap determination (moles/volume) 13 mmol/L 5-14 Serum or plasma urea nitrogen measurement (mass/volume ) 21 mg/dL 7-18 Serum or plasma creatinine measurement (mass/volume) 1.58 mg/dL 0.60-1.30 Serum or plasma urea nitrogen/creatinine mass ratio 13 NRG Serum or plasma creatinine measurement w ith calculation of estimated glomerular filtration rate 42 NRG Serum or plasma glucose measurement (mass/volume) 178 mg/dL 70-105 Serum or plasma calcium measurement (mass/volume) 9.1 mg/dL 8.5-10.1 Serum or plasma total bilirubin measurement (mass/volu me) 1.0 mg/dL 0.1-1.0 Serum or plasma alkaline phosphatase shon surement (enzymatic activity/volume) 58 U/L 40-136 Serum or plasma aspartate aminotransfera se measurement (enzymatic activity/volume) 20 U/L 5-34 Serum or plasma alanine aminotransferase measurement (enzymatic activity/volume) 16 U/L 0-55 Serum or plasma protein measurement (mass/volume) 7.4 g/dL 6.4-8.2 Serum or plasma albumin measurement (mass/volume) 4.2 g/dL 3.2-4.5 CALCIUM CORRECTED 8.9 mg/dL 8.5-10.1 Serum ragweed IgE antibody assay - 11/26 18:45 Serum ragweed IgE antibody assay 202 U/L 125-220 PROCALCITONIN (PCT) - 11/27/19 18:45 PROCALCITONIN (PCT) 0.35 ng/mL <0.10 Blood lactic acid measurement (moles/vol ume) - 11/27/19 18:45 Blood lactic acid measurement (moles/volume) 2.49 mmol/L 0.50-2.00 Manual absolute plasma cell count - 11/10 12/29 18:45 Blood monocytes/100 leukocytes 6 % NRG Manual blood segmented neutrophils/100 leukocytes 83 % NRG Blood band neutrophils/100 leukocytes 3 % NRG Manual blood lymphocytes/100 leukocytes 4 % NRG Manual eosinophils/100 leukocytes in nose 0 % NRG Manual blood basophils/100 leukocytes 0 % NRG Blood smudge cells detection by light microscopy S LIGHT NRG Blood lymphocytes variant/100 leukocytes 4 % NRG Blood toxic granules detection by light microscopy 1+ NRG Serum or plasma C reactive protein measu rement (mass/volume) - 11/27/19 18:45 Serum or plasma C reactive protein measurement (mass/v olume) 1.43 mg/dL 0.00-0.50 Erythrocyte sedimentation rate by jony gren method - 11/27/19 18:45 Erythrocyte sedimentation rate by westergren method 11 mm 0- 30 PT panel in platelet poor plasma by coag ulation assay - 11/27/19 18:45 Prothrombin time (PT) in platelet poor plasma by coagu lation assay 13.4 s 12.2-14.7 INR in platelet poor plasma or blood by coagulation as say 1.0 0.8-1.4 Activated partial thromboplastin time (a PTT) in platelet poor plasma bycoagulation assay - 11/27/19 18:45 Activated partial thromboplastin time (a PTT) in platelet poor plasma bycoagulation assay 30 s 24-35 Fibrin D-dimer FEU measurement in platel et poor plasma (mass/volume) - 11/27/19 18:45 Fibrin D-dimer FEU measurement in platelet poor plasma (mass/volume) 1.99 ug/mL 0.00-0.49 Bacterial blood culture - 11/27/19 18:45 Bacterial blood culture NG NRG Bacterial blood culture - 11/27/19 19:28 Bacterial blood culture NG NRG Serum or plasma lactate measurement (mol es/volume) - 11/27/19 21:15 Serum or plasma lactate measurement (moles/volume) 2.86 mmol/L 0.50-2.00 Serum or plasma lactate measurement (mol es/volume) - 11/27/19 23:15 Serum or plasma lactate measurement (moles/volume) 2.46 mmol/L 0.50-2.00 Serum or plasma lactate measurement (mol es/volume) - 11/28/19 01:12 Serum or plasma lactate measurement (moles/volume) 2.44 mmol/L 0.50-2.00 Serum or plasma lactate measurement (mol es/volume) - 11/28/19 03:26 Serum or plasma lactate measurement (moles/volume) 1.79 mmol/L 0.50-2.00 Complete blood count (CBC) with automate d white blood cell (WBC) differential - 11/28/19 06:00 Blood leukocytes automated count (number/volume) 22.4 10*3/uL 4.3-11.0 Blood erythrocytes automated count (number/volume) 4.13 10*6/uL 4.35-5.85 Venous blood hemoglobin measurement (mass/volume) 12.6 g/dL 13.3-17.7 Blood hematocrit (volume fraction) 39 % 40-54 Automated erythrocyte mean corpuscular volume 94 [ foz_us] 80-99 Automated erythrocyte mean corpuscular h emoglobin (mass per erythrocyte) 31 pg 25-34 Automated erythrocyte mean corpuscular h emoglobin concentration measurement (mass/volume) 33 g/dL 32-36 Automated erythrocyte distribution width ratio 13. 1 % 10.0- 14.5 Automated blood platelet count (count/volume) 234 10*3/uL 130-400 Automated blood platelet mean volume measurement 10.5 [foz_us] 7.4-10.4 Automated blood neutrophils/100 leukocytes 86 % 42-75 Automated blood lymphocytes/100 leukocytes 9 % 12-44 Blood monocytes/100 leukocytes 6 % 0-12 Automated blood eosinophils/100 leukocytes 0 % 0-10 Automated blood basophils/100 leukocytes 0 % 0-10 Blood neutrophils automated count (number/volume) 19.3 10*3 1.8-7.8 Blood lymphocytes automated count (number/volume) 1.9 10*3 1.0-4.0 Blood monocytes automated count (number/volume) 1. 2 10*3 0.0-1.0 Automated eosinophil count 0.0 10*3/uL 0 .0-0.3 Automated blood basophil count (count/volume) 0.0 10*3/uL 0.0-0.1 Comprehensive metabolic panel - 11/28/19 06:00 Serum or plasma sodium measurement (moles/volume) 137 mmol/L 135-145 Serum or plasma potassium measurement (moles/volume) 4.5 mmol/L 3.6-5.0 Serum or plasma chloride measurement (moles/volume) 106 mmol/L 98-107 Carbon dioxide 21 mmol/L 21-32 Serum or plasma anion gap determination (moles/volume) 10 mmol/L 5-14 Serum or plasma urea nitrogen measurement (mass/volume ) 21 mg/dL 7-18 Serum or plasma creatinine measurement (mass/volume) 1.53 mg/dL 0.60-1.30 Serum or plasma urea nitrogen/creatinine mass ratio 14 NRG Serum or plasma creatinine measurement w ith calculation of estimated glomerular filtration rate 43 NRG Serum or plasma glucose measurement (mass/volume) 136 mg/dL 70-105 Serum or plasma calcium measurement (mass/volume) 8.5 mg/dL 8.5-10.1 Serum or plasma total bilirubin measurement (mass/volu me) 1.2 mg/dL 0.1-1.0 Serum or plasma alkaline phosphatase shon surement (enzymatic activity/volume) 42 U/L 40-136 Serum or plasma aspartate aminotransfera se measurement (enzymatic activity/volume) 23 U/L 5-34 Serum or plasma alanine aminotransferase measurement (enzymatic activity/volume) 13 U/L 0-55 Serum or plasma protein measurement (mass/volume) 6.1 g/dL 6.4-8.2 Serum or plasma albumin measurement (mass/volume) 3.5 g/dL 3.2-4.5 CALCIUM CORRECTED 8.9 mg/dL 8.5-10.1 Capillary blood glucose measurement by g lucometer (mass/volume) - 11/28/19 06:25 Capillary blood glucose measurement by glucometer (mas s/volume) 139 mg/dL 70-110 Capillary blood glucose measurement by g lucometer (mass/volume) - 11/28/19 11:34 Capillary blood glucose measurement by glucometer (mas s/volume) 142 mg/dL 70-110 Capillary blood glucose measurement by g lucometer (mass/volume) - 11/28/19 18:12 Capillary blood glucose measurement by glucometer (mas s/volume) 150 mg/dL 70-110 Capillary blood glucose measurement by g lucometer (mass/volume) - 11/29/19 00:49 Capillary blood glucose measurement by glucometer (mas s/volume) 114 mg/dL 70-110 Complete blood count (CBC) with automate d white blood cell (WBC) differential - 11/29/19 05:26 Blood leukocytes automated count (number/volume) 13.1 10*3/uL 4.3-11.0 Blood erythrocytes automated count (number/volume) 3.94 10*6/uL 4.35-5.85 Venous blood hemoglobin measurement (mass/volume) 12.0 g/dL 13.3-17.7 Blood hematocrit (volume fraction) 37 % 40-54 Automated erythrocyte mean corpuscular volume 93 [ foz_us] 80-99 Automated erythrocyte mean corpuscular h emoglobin (mass per erythrocyte) 31 pg 25-34 Automated erythrocyte mean corpuscular h emoglobin concentration measurement (mass/volume) 33 g/dL 32-36 Automated erythrocyte distribution width ratio 13. 1 % 10.0- 14.5 Automated blood platelet count (count/volume) 237 10*3/uL 130-400 Automated blood platelet mean volume measurement 10.4 [foz_us] 7.4-10.4 Automated blood neutrophils/100 leukocytes 82 % 42-75 Automated blood lymphocytes/100 leukocytes 11 % 12-44 Blood monocytes/100 leukocytes 5 % 0-12 Automated blood eosinophils/100 leukocytes 2 % 0-10 Automated blood basophils/100 leukocytes 0 % 0-10 Blood neutrophils automated count (number/volume) 10.8 10*3 1.8-7.8 Blood lymphocytes automated count (number/volume) 1.5 10*3 1.0-4.0 Blood monocytes automated count (number/volume) 0. 7 10*3 0.0-1.0 Automated eosinophil count 0.2 10*3/uL 0 .0-0.3 Automated blood basophil count (count/volume) 0.0 10*3/uL 0.0-0.1 Comprehensive metabolic panel - 11/29/19 05:26 Serum or plasma sodium measurement (moles/volume) 138 mmol/L 135-145 Serum or plasma potassium measurement (moles/volume) 4.0 mmol/L 3.6-5.0 Serum or plasma chloride measurement (moles/volume) 107 mmol/L 98-107 Carbon dioxide 20 mmol/L 21-32 Serum or plasma anion gap determination (moles/volume) 11 mmol/L 5-14 Serum or plasma urea nitrogen measurement (mass/volume ) 19 mg/dL 7-18 Serum or plasma creatinine measurement (mass/volume) 1.54 mg/dL 0.60-1.30 Serum or plasma urea nitrogen/creatinine mass ratio 12 NRG Serum or plasma creatinine measurement w ith calculation of estimated glomerular filtration rate 43 NRG Serum or plasma glucose measurement (mass/volume) 131 mg/dL 70-105 Serum or plasma calcium measurement (mass/volume) 8.4 mg/dL 8.5-10.1 Serum or plasma total bilirubin measurement (mass/volu me) 0.7 mg/dL 0.1-1.0 Serum or plasma alkaline phosphatase shon surement (enzymatic activity/volume) 47 U/L 40-136 Serum or plasma aspartate aminotransfera se measurement (enzymatic activity/volume) 17 U/L 5-34 Serum or plasma alanine aminotransferase measurement (enzymatic activity/volume) 11 U/L 0-55 Serum or plasma protein measurement (mass/volume) 6.2 g/dL 6.4-8.2 Serum or plasma albumin measurement (mass/volume) 3.4 g/dL 3.2-4.5 CALCIUM CORRECTED 8.9 mg/dL 8.5-10.1 Capillary blood glucose measurement by g lucometer (mass/volume) - 11/29/19 05:41 Capillary blood glucose measurement by glucometer (mas s/volume) 135 mg/dL 70-110 Capillary blood glucose measurement by g lucometer (mass/volume) - 11/29/19 11:25 Capillary blood glucose measurement by glucometer (mas s/volume) 171 mg/dL 70-110 Capillary blood glucose measurement by g lucometer (mass/volume) - 11/29/19 16:19 Capillary blood glucose measurement by glucometer (mas s/volume) 141 mg/dL 70-110 Capillary blood glucose measurement by g lucometer (mass/volume) - 11/29/19 20:00 Capillary blood glucose measurement by glucometer (mas s/volume) 176 mg/dL 70-110 Capillary blood glucose measurement by g lucometer (mass/volume) - 11/30/19 05:17 Capillary blood glucose measurement by glucometer (mas s/volume) 134 mg/dL 70-110 Automated blood complete blood count ( mogram) panel - 11/30/19 05:45 Blood leukocytes automated count (number/volume) 10.4 10*3/uL 4.3-11.0 Blood erythrocytes automated count (number/volume) 3.85 10*6/uL 4.35-5.85 Venous blood hemoglobin measurement (mass/volume) 11.7 g/dL 13.3-17.7 Blood hematocrit (volume fraction) 36 % 40-54 Automated erythrocyte mean corpuscular volume 94 [ foz_us] 80-99 Automated erythrocyte mean corpuscular h emoglobin (mass per erythrocyte) 30 pg 25-34 Automated erythrocyte mean corpuscular h emoglobin concentration measurement (mass/volume) 33 g/dL 32-36 Automated erythrocyte distribution width ratio 12. 9 % 10.0- 14.5 Automated blood platelet count (count/volume) 236 10*3/uL 130-400 Automated blood platelet mean volume measurement 10.8 [foz_us] 7.4-10.4 Capillary blood glucose measurement by g lucometer (mass/volume) - 11/30/19 11:18 Capillary blood glucose measurement by glucometer (mas s/volume) 165 mg/dL 70-110 Encounters ACCT No. Visit Date/Time Discharge Status Pt. Type Provider Facility Loc./Unit Complaint [id number] 11/27/2019 19:37:00 12:30:00 DIS Inpatient TARAN CARRENO MD [facility] 4TH FEVER,RECTAL TEAR [id number] 11/27/2019 08:48:00 12:15:00 DIS Outpatient TARAN CARRENO MD [facility] ENDO SCREENING/HX POLYPS/RIG HT EAR LESION [id number] 11/25/2019 05:35:00 15:07:00 DIS Outpatient TARAN CARRENO MD [facility] PREOP COLONOSCOPY [id number] 06/26/2019 08:22:00 13:25:00 [facility] [id number] 06/21/2019 05:34:00 11:55:00 DIS Outpatient YRIS AVILA MD [facility] PREOP BLADDER NEOPLASM [id number] 06/20/2019 15:24:00 23:59:59 CLS Outpatient YRIS AVILA MD [facility] RAD CANCER BLADDER [id number] 05/14/2019 11:30:00 23:59:59 CLS Outpatient AUBREY SOLARES [facility] CARD CAD [id number] 10/31/2018 09:11:00 23:59:59 CLS Outpatient ROSANGELA DEMARCO MD [facility] RAD COUGH R05 [id number] 09/04/2018 05:54:00 019 10:05:00 DIS Outpatient YRIS AVILA MD [facility] BLADDER TUMOR [id number] 08/29/2018 05:36:00 019 15:03:00 DIS Outpatient YRIS AVILA MD [facility] PREOP BLADDER TUMOR [id number] 08/15/2017 06:50:00 018 11:00:00 DIS Outpatient YRIS AVILA MD [facility] LARGE BLADDER TUMOR [id number] 08/11/2017 05:34:00 12:56:00 DIS Outpatient YRIS AVILA MD [facility] PREOP LARGE BLADDER TUMOR [id number] 08/03/2017 09:23:00 23:59:59 CLS Outpatient YRIS AVILA MD [facility] RAD GROSS HEMATURIA [id number] 03/27/2017 13:57:00 017 23:59:59 CLS Outpatient MARIUSZ GAVIN FACC, ALI FACP CC DS [facility] CARD CAD [id number] 03/16/2017 07:28:00 017 23:59:59 CLS Outpatient MARIUSZ GAVIN FACC, ALI FACP CC DS [facility] CARD CAD [id number] 10/14/2016 10:00:00 23:59:59 CLS Preadmit ROSANGELA DEMARCO MD, V [facility] DSME TYPE 2 DIABETES [id number] 07/15/2016 09:53:00 08:00:00 DIS Outpatient ROSANGELA DEMARCO MD [facility] DSME TYPE 2 DIABETES [id number] 07/27/2015 14:11:00 23:59:59 CLS Outpatient ROSANGELA DEMARCO MD [facility] LAB URINARY TRACT INFECTION,FREQUENCY,BURNING [id number] 06/22/2015 15:56:00 16:00:00 DIS Inpatient ROSANGELA DEMARCO MD [facility] 4TH UTI,ARF [id number] 01/02/2015 08:29:00 015 12:10:00 DIS Outpatient TARAN CARRENO MD [facility] SDC FAMILY HX COLON CANCER [id number] 01/01/2015 06:12:00 015 23:59:59 CLS Outpatient TARAN CARRENO MD [facility] PREOP FAMILY HX COLON CANCER [id number] 09/15/2014 10:46:00 015 23:59:59 CLS Outpatient AUBREY SOLARES [facility] CARD CAD HTN HLE [id number] 12/28/2012 11:00:00 013 17:00:00 DIS Outpatient ROSANGELA DEMARCO MD [facility] REHAB RT CAROTID STENOSIS [id number] 12/19/2012 14:15:00 013 00:01:00 DIS Outpatient ROSANGELA DEMARCO MD [facility] REHAB RT CAROTID STENOSIS [id number] 09/09/2012 10:55:00 Document Registration [id number] 09/05/2012 06:05:00 Document Registration [id number] 08/31/2012 13:15:00 Document Registration [id number] 08/20/2012 10:37:00 Document Registration [id number] 04/03/2012 05:39:00 Document Registration [id number] 03/29/2012 10:43:00 Document Registration [id number] 02/21/2012 10:10:00 Document Registration [id number] 02/08/2012 12:15:00 Document Registration [id number] 06/28/2010 09:50:00 Document Registration [id number] 05/14/2010 09:48:00 Document Registration [id number] 01/13/2010 10:00:00 Document Registration [id number] 04/08/2009 15:45:00 Document Registration
[2020-01-07 15:36] LABS: BILIRUBIN,URINE NEGATIVE (NEGATIVE); CLARITY,URINE CLEAR; COLOR,URINE YELLOW; GLUCOSE, URINE (UA) NEGATIVE (NEGATIVE); KETONES,URINE NEGATIVE (NEGATIVE); LEUKOCYTE ESTERASE ,URINE NEGATIVE (NEGATIVE); NITRITE,URINE NEGATIVE (NEGATIVE); PH,URINE 6.5 (5-9); PROTEIN,URINE NEGATIVE (NEGATIVE)
[2020-01-07 15:45] LABS: WBC,URINE 0-2 /HPF
[2020-01-07 15:46] LABS: BACTERIA,URINE NEGATIVE /HPF
[2020-01-07 15:53] VITALS: BP 135/83
--- NOTE | 2020-01-07 15:53 | History & Physical-Hospitalist ---
History of Present Illness HPI/Chief Complaint Pt is an 84yoCM with a PMH of CVA, NIDDMII, HTN who presented with a two day history of feeling off balance. He states that he had a stroke in 2012 and since then has had some mild right sided weakness and dysequilibrium but over the last two days it has worsened. His daughter was at bedside and states she has also noticed some slurred speech as well. They thought he might have a UTI so called his primary care provider, Adelina MORALES, who recommended evaluation in the ER. CT Head was done and revealed a subacute stroke. He was admitted for further management. Source: patient Date Seen 01/07/20 Time Seen by a Provider: 15:49 Attending Physician Venita Maldonado MD PCP Jw Preciado MD Referring Physician Date of Admission Jan 07, 2020 at 14:42 Home Medications & Allergies Home Medications Reviewed patient Home Medication Reconciliation performed by pharmacy medication reconciliations chief ophthalmic technician and/or nursing. Patients Allergies have been reviewed. Allergies Allergies Coded Allergies No Known Drug Allergies (Unverified06/21/19) Past Qwuinzz-Tvqwjs-Ejqigi Hx Past Med/Social Hx: Reviewed Nursing Past Med/Soc Hx Patient Social History Employed/Student: retired Alcohol Use: Denies Use Recreational Drug Use: No Smoking Status: Former Smoker Former Smoker, Quit: Jun 21, 2016 Type Used: Pipe 2nd Hand Smoke Exposure: No Recent Foreign Travel: No Contact w/other who traveled: No Recent Hopitalizations: No Recent Infectious Disease Expo: No Immunizations Up To Date Tetanus Booster (TDap): More than 5yrs Pediatric: No Date of Pneumonia Vaccine: Mar 19, 2018 Date of Influenza Vaccine: May 27, 2019 Seasonal Allergies Seasonal Allergies: No Past Medical History Surgeries: Bladder Surgery, Tonsillectomy Currently Using CPAP: No Currently Using BIPAP: No Cardiac: Coronary Artery Disease, Heart Attack, High Cholesterol, Hypertension, Peripheral Vascular Neurological: Stroke Reproductive: No Sexually Transmitted Disease: No HIV/AIDS: No Genitourinary: Benign Prostatic Hyperpl, Kidney Stones Gastrointestinal: Gastroesophageal Reflux, Polyps, Hiatal Hernia Musculoskeletal: Arthritis Endocrine: Diabetes, Non-Insulin dep HEENT: Cataract Loss of Vision: Denies Hearing Impairment: Hard of Hearing Cancer: Bladder, Skin Did You Recieve Any Treatments: Yes What Type of Treatment Did You: Surgical Intervention History of Blood Disorders: No Adverse Reaction to Blood Bruner: No (N/A) Family History Reviewed Nursing Family Hx No Pertinent Family Hx Review of Systems Constitutional: No chills, No fever EENTM: no symptoms reported Respiratory: No cough, No short of breath Cardiovascular: No chest pain, No edema, No palpitations Gastrointestinal: No abdominal pain, No constipation, No diarrhea, No nausea, No vomiting Genitourinary: No dysuria, No frequency Musculoskeletal: no symptoms reported Skin: no symptoms reported Psychiatric/Neurological: See HPI; Denies Headache; Pre-Existing Deficit, Weakness Physical Exam Physical Exam Vital Signs Vital Signs - First Documented 01/07/20 11:55 Temp 37.3 Pulse 74 Resp 13 B/P (MAP) 151/111 (124) Pulse Ox 96 O2 Delivery Room Air Capillary Refill : Less Than 3 Seconds Height, Weight, BMI Height: 5'4.00" Weight: 146lbs. 0.0oz. 66.789382go; 27.00 BMI Method: General Appearance: No Apparent Distress, WD/WN HEENT: PERRL/EOMI, Moist Mucous Membranes; No Scleral Icterus (L), No Scleral Icterus (R) Neck: Normal Inspection, Supple Respiratory: Lungs Clear, No Accessory Muscle Use, No Respiratory Distress Cardiovascular: Regular Rate, Rhythm, No JVD, No Murmur Gastrointestinal: Normal Bowel Sounds, Non Tender, Soft Extremity: No Calf Tenderness, No Pedal Edema Neurologic/Psychiatric: Alert, Oriented x3, Normal Mood/Affect, Aphasia (occasional slurred speech but patient wearing a mask which may have exacerbated it), Motor Weakness (LUE 4/5) Skin: Normal Color, Warm/Dry Results Results/Procedures Labs Laboratory Tests 01/07/20 12:07 Patient resulted labs reviewed. Imaging: Reviewed Imaging Report Imaging [facility] [place] [place] NAME: CRISTINA NETTLES [facility] REC#: [id number] PT STATUS: ADM IN : 1935 PHYSICIAN: GUANAKITO RAE DO ADMIT DATE: 01/07/20/4TH Signed Date of Exam:01/07/20 CT HEAD WO PROCEDURE: CT head without contrast. TECHNIQUE: Multiple contiguous axial images were obtained through the brain without the use of intravenous contrast. Auto Exposure Controls were utilized during the CT exam to meet ALARA standards for radiation dose reduction. INDICATION: Dizziness with intermittent slurred speech. These symptoms have been present for 2 days. Patient has had a remote stroke in 2012. Study compared with exam 06/22/2015 FINDINGS: There is no intracranial hemorrhage and there is no hydrocephalus. Previous exam showed a high right posterior frontal parietal junction infarct with regional encephalomalacia. Along its periphery there has been progressive parenchymal edema and low-attenuation. Its occipital component appeared stable. Old infarcts in the cerebellar hemispheres chronic. No hydrocephalus. No shift of the midline structures. No herniation. IMPRESSION: There is likely progressive ischemic changes in the high right posterior parietal lobe at the level of the sky radiata and centrum semiovale peripheral to a remote infarct. The new changes are likely subacute recent ischemia along the posterior right MCA territory superiorly without mass effect or hemorrhagic component. Results discussed with the Emergency Room physician. Dictated by: Dictated on workstation # [id number] Dict: 01/07/20 1337 Trans: 01/07/20 1658 [facility] [id number] Interpreted by: IRENE HASSAN Electronically signed by: IRENE HASSAN 01/07/20 1658 Assessment/Plan Admission Diagnosis Subacute CVA Admission Status: Observation Assessment and Plan Subacte CVA Recurrent stroke Will add plavix to antiplatelet regimen for further prevention of recurrent stroke Monitor on telemetry lipid panel PT/OT Dysphagia screen Consider IRU pending therapy evals NIDDMII On glipizide as an outpatient SSI CKD Stage 3 At baseline, no acute management needs VENITA MALDONADO MD Jan 07, 2020 15:53
[2020-01-07] MEDS ORDERED: ONDANSETRON 4 MG (ZOFRAN) ORAL DISSOLVE TAB PO PRN (16:00)
[2020-01-07] MEDS ORDERED: ENOXAPARIN 40 MG/0.4 ML (LOVENOX) SYR SC SCH (16:00)
[2020-01-07] MEDS ORDERED: MELATONIN 3 MG TABLET PO PRN (16:00)
[2020-01-07] MEDS ORDERED: PATIENT MAY USE OWN MEDS, ALL PO SCH (16:00)
[2020-01-07] MEDS ORDERED: polyethylene glycoL POWDER 17 GM (MIRALAX) PACK PO PRN (16:00)
[2020-01-07] MEDS: inSUlin ASPART (NovoLOG) 1 UNIT/0.01 ML (CHARGE PER UNIT) SC SCH ×2 (16:00→20:19)
[2020-01-07] MEDS ORDERED: ACETAMINOPHEN 325 MG TABLET PO PRN (16:00)
[2020-01-07] MEDS ORDERED: ANTACID SUSP 30 ML UDC (MYLANTA) PO PRN (16:00)
[2020-01-07 16:18] VITALS: BP 135/83
[2020-01-07 19:47] VITALS: BP 105/63
[2020-01-08 00:11] VITALS: BP 112/62
[2020-01-08 04:49] VITALS: BP 133/79
[2020-01-08 05:19] LABS: HEMOGLOBIN 13.2 G/DL (13.3-17.7); MEAN PLATELET VOLUME 9.9 FL (7.4-10.4); RED CELL DISTRIBUTION WIDTH 13.3 % (10.0-14.5); WHITE BLOOD COUNT 10.2 10^3/uL (4.3-11.0)
[2020-01-08 05:29] LABS: POTASSIUM 4.6 MMOL/L (3.6-5.0)
[2020-01-08 05:30] LABS: CALCIUM 8.8 MG/DL (8.5-10.1)
[2020-01-08 05:35] LABS: CREATININE SERUM 1.47 MG/DL (0.60-1.30)
[2020-01-08] MEDS: inSUlin ASPART (NovoLOG) 1 UNIT/0.01 ML (CHARGE PER UNIT) SC SCH ×2 (05:35→12:11)
--- NOTE | 2020-01-08 07:20 | NUR ---
01/07/202046-this rn received call by technical solution architect that pt hr was in the 30s & promptly went up to 68 bpm, this rn auscultated pt apical heart rate 66bpm 2156-this rn received call by technical solution architect stated pt's hr is 0 bpm, this rn was at bedside with the pt who was alert & speaking to this rn, this rn auscultated pt apical heart rate 68bpm. Telemetry Box changed out-no further calls
[2020-01-08 08:00] VITALS: BP 115/65
--- NOTE | 2020-01-08 08:44 | NUR ---
I WENT THROUGH THE EXTERNAL MED HISTORY, SPOKE WITH THE PATIENT AND HIS DAUGHTER AND WENT THROUGH THE MED LIST THAT THEY BROUGHT TO COMPLETE THE MED REC. OTC: ACETAMINOPHEN ASPIRIN LUTEIN Addendum: 01/08/20 at 0850 by ROSA ISELA BONE correspondence clerk PATIENT TAKES HALF A TABLET OF LOSARTAN 25MG DAILY
[2020-01-08] MEDS ORDERED: CLOPIDOGREL 75 MG (PLAVIX) TABLET PO SCH (09:00)
[2020-01-08] MEDS ORDERED: PANTOPRAZOLE 40 MG (PROTONIX) TAB PO SCH (09:00)
[2020-01-08] MEDS ORDERED: ASPIRIN 325 MG (5 GR) TABLET PO SCH (09:00)
--- NOTE | 2020-01-08 11:00 | Occupational Therapy Eval ---
OT Evaluation-General/PLF Medical Diagnosis Admission Date Jan 07, 2020 at 14:42 Medical Diagnosis: CVA Onset Date: Jan 07, 2020 Therapy Diagnosis Therapy Diagnosis: debility Height/Weight Height (Feet): 5 Height (Inches): 4.00 Weight (Pounds): 146 Weight (Ounces): 0.0 Precautions Precautions/Isolations: Fall Prevention, Standard Precautions Referral Physician: Joel Medical History Pertinent Medical History: CAD, CVA, DM, HTN, [place], PVD Additional Medical History high cholesterol, BPH, hiatal hernia, arthritis Social History Home: Single Level Current Living Status: Alone Steps Into Home: 2 ADL-Prior Level of Function SCALE: Activities may be completed with or without assistive devices. 1-Ouktlixzem-plzpnye completes the activity by him/herself with no assistance from a helper. 5-Set-up or Clean-up Assistance-helper sets up or cleans up; patient completes activity. [place] assists only prior to or following the activity. 4-Supervision or Touching Assistance-helper provides verbal cues and/or touching/steadying and/or contact guard assistance as patient completes activity. Assistance may be provided throughout the activity or intermittently. 3-Partial/Moderate Assistance-helper does LESS THAN HALF the effort. [place] lifts, holds or supports trunk or limbs, but provides less than half the effort. 2-Substantial/Maximal Assistance-helper does MORE THAN HALF the effort. [place] lifts or holds trunk or limbs and provides more than half the effort. 6-Szqfsllsf-wmffeg does ALL the effort. Patient does none of the effort to complete the activity. Or, the assistance of 2 or more helpers is required for the patient to complete the activity. If activity was not attempted, code reason: 7-Patient Refused. 9-Not Applicable-not attempted and the patient did not perform the activity before the current illness, exacerbation or injury. 10-Not Attempted due to Environmental Limitations-(lack of equipment, weather restraints, etc.). 88-Not Attempted due to Medical Conditions or Safety Concerns. ADL PLOF Comments Pt reports being independent with basic self care tasks. Uses a cane at times for mobility. Daughter lives nearby and assists with cleaning. Self Care: Independent DME/Equipment: Bath Chair, Grab Bars, Tub/Shower Drive Self: Yes OT Current Status Subjective Pt in bed, agrees to therapy. No c/o pain. Mental Status/Objective Patient Orientation: Person, Place Current Glasses/Contacts: Yes Hearing Aids: No Dentures/Partials: Yes Hand Dominance: Right Upper Extremity ROM Right UE WFL Left UE mildly decreased secondary to previous CVA Upper Extremity Coordination Left decreased secondary to previous CVA Upper Extremity Strength Left UE decreased secondary to previous CVA ADL-Treatment ADL-Current Pt supine to sit without assist. Donned shoes with set up while seated EOB. Pt sit to stand without assist. Gait to restroom without LOB. Transfer to toilet using grab bar for safety. Pt able to complete toileting hygiene and clothing management. Stood at sink to wash hands. Pt moves quickly during mobility, requires cues to slow down for safety, but does not have any LOB. Changed hospital gown with set up UE assessment completed while seated in chair. Pt sitting in chair with needs met and daughter present after session, RN notified Eating (QC): 6 (per pt report) On/Off Footwear (QC): 5 Toileting Hygiene (QC): 5 Education OT Patient Education: Rehab process Teaching Recipient: Patient Teaching Methods: Discussion Response to Teaching: Verbalize Understanding OT Tin Pourer Goals Tin Pourer Goals Time Frame: Jan 15, 2020 Toileting Hygiene (QC): 6 Shower/Bathe Self (QC): 6 Upper Body Dressing (QC): 6 Lower Body Dressing (QC): 6 On/Off Footwear (QC): 6 1=Demonstrate adherence to instructed precautions during ADL tasks. 2=Patient will verbalize/demonstrate understanding of assistive devices/modifications for ADL. 3=Patient will improve strength/tolerance for activity to enable patient to perform ADL's. OT Education/Plan Problem List/Assessment Assessment: Dependent Transfers, Impaired Self-Care Skills Discharge Recommendations Plan/Recommendations: Continue POC Treatment Plan/Plan of Care Treatment,Training & Education: Yes Patient would benefit from OT for education, treatment and training to promote independence in ADL's, mobility, safety and/or upper extremity function for ADL's. Plan of Care: ADL Retraining, Functional Mobility, UE Funct Exercise/Act Treatment Duration: Jan 15, 2020 Frequency: 5 times per week Estimated Hrs Per Day: .25 hour per day Rehab Potential: Good Time/GCodes Start Time: 09:59 Stop Time: 10:18 Total Time Billed (hr/min): 19 Billed Treatment Time 1, visit, EVL(19minutes) GEE MEZA OT Jan 08, 2020 11:00
--- NOTE | 2020-01-08 11:20 | Discharge Summary ---
Diagnosis/Chief Complaint Date of Admission Jan 07, 2020 at 14:42 Date of Discharge Discharge Date: Jan 07, 2020 Admission Diagnosis Subacute CVA Primary Care Jw Preciado MD Discharge Summary Discharge Physical Exam Allergies: Coded Allergies: No Known Drug Allergies (Unverified , 06/21/19) Vitals & I&Os Vital Signs Date Time Temp Pulse Resp B/P (MAP) Pulse Ox O2 Delivery O2 Flow Rate FiO2 01/08/20 08:00 37.0 79 20 115/65 (82) 94 Room Air General Appearance: No Apparent Distress Cardiovascular: Regular Rate, Rhythm, No Murmur Gastrointestinal: Normal Bowel Sounds, Non Tender, Soft Neurologic/Psychiatric: Alert, Oriented x3 Hospital Course Pt was admitted due to subacute stroke. He was monitored overnight and did well. He was seen by PT/OT and did very well and was discharged home to continue therapy with home health. Plavix was added to his antiplatelet regimen as he had failed aspirin for secondary prevention. He is to follow up with Dr Preciado's o ffice in the next week. Labs (last 24 hrs) Laboratory Tests 01/07/20 12:07: White Blood Count 10.3, Red Blood Count 4.50, Hemoglobin 13.5, Hematocrit 41, Mean Corpuscular Volume 91, Mean Corpuscular Hemoglobin 30, Mean Corpuscular Hemoglobin Concent 33, Red Cell Distribution Width 13.3, Platelet Count 329, Mean Platelet Volume 10.0, Sodium Level 137, Potassium Level 4.6, Chloride Level 106, Carbon Dioxide Level 21, Anion Gap 10, Blood Urea Nitrogen 27H, Creatinine 1.62H, Estimat Glomerular Filtration Rate 41, BUN/Creatinine Ratio 17, Glucose Level 153H, Glucometer 144H, Calcium Level 9.2, Corrected Calcium 9.0, Total Bilirubin 0.6, Aspartate Amino Transf (AST/SGOT) 17, Alanine Aminotransferase (ALT/SGPT) 13, Alkaline Phosphatase 54, C-Reactive Protein High Sensitivity 0 .62H, Total Protein 7.3, Albumin 4.3 01/07/20 12:22: Lactic Acid Level 1.36 01/07/20 15:21: Urine Color YELLOW, Urine Clarity CLEAR, Urine pH 6.5, Urine Specific [place] 1.015L, Urine Protein NEGATIVE, Urine Glucose (UA) NEGATIVE, Urine Ketones NEGATIVE, Urine Nitrite NEGATIVE, Urine Bilirubin NEGATIVE, Urine Urobilinogen 0.2, Urine Leukocyte Esterase NEGATIVE, Urine RBC (Auto) NEGATIVE, Urine RBC NONE, Urine WBC 0-2, Urine Crystals NONE, Urine Bacteria NEGATIVE, Urine Casts NONE, Urine Mucus NEGATIVE, Urine Culture Indicated NO 01/07/20 16:36: Glucometer 172H 01/07/20 20:09: Glucometer 221H 01/08/20 05:05: White Blood Count 10.2, Red Blood Count 4.38, Hemoglobin 13.2L, Hematocrit 40, Mean Corpuscular Volume 91, Mean Corpuscular Hemoglobin 30, Mean Corpuscular Hemoglobin Concent 33, Red Cell Distribution Width 13.3, Platelet Count 302, Mean Platelet Volume 9.9, Sodium Level 136, Potassium Level 4.6, Chloride Level 106, Carbon Dioxide Level 20L, Anion Gap 10, Blood Urea Nitrogen 24H, Creatinine 1.47H, Estimat Glomerular Filtration Rate 46, BUN/Creatinine Ratio 16, Glucose Level 134H, Calcium Level 8.8, Triglycerides Level 170H, Cholesterol Level 143, LDL Cholesterol Direct 83, VLDL Cholesterol 34, HDL Cholesterol 39L Patient resulted labs reviewed. Pending Labs Laboratory Tests 01/08/20 05:05: White Blood Count 10.2, Red Blood Count 4.38, Hemoglobin 13.2, Hematocrit 40, Mean Corpuscular Volume 91, Mean Corpuscular Hemoglobin 30, Mean Corpuscular Hemoglobin Concent 33, Red Cell Distribution Width 13.3, Platelet Count 302, Mean Platelet Volume 9.9, Sodium Level 136, Potassium Level 4.6, Chloride Level 106, Carbon Dioxide Level 20, Anion Gap 10, Blood Urea Nitrogen 24, Creatinine 1.47, Estimat Glomerular Filtration Rate 46, BUN/Creatinine Ratio 16, Glucose Level 134, Calcium Level 8.8, Triglycerides Level 170, Cholesterol Level 143, LDL Cholesterol Direct 83, VLDL Cholesterol 34, HDL Cholesterol 39 Imaging: Reviewed Imaging Report Discussion & Recommendations Discharge Planning: >30 minutes discharge planning Discharge Home Medications: Active Scripts Active Reported Tylenol (Acetaminophen) 325 Mg Tablet 650 Mg PO Q8H PRN Aspirin 325 Mg Tablet 325 Mg PO HS Pravastatin Sodium 20 Mg Tablet 20 Mg PO DAILY Glimepiride 1 Mg Tablet 1 Mg PO DAILY Lutein-Zeaxanthin 25-5 mg Sfgl (Lutein/Zeaxanthin) 1 Each Capsule 1 Each PO HS Losartan Potassium 25 Mg Tablet 12.5 Mg PO DAILY PATIENT TAKES HALF A TAB Pantoprazole Sodium 40 Mg Tablet.dr 40 Mg PO HS Instructions to patient/family Please see electronic discharge instructions given to patient. Clinical Quality Measures DVT/VTE Risk/Contraindication: Risk Factor Score Per Nursin RFS Level Per Nursing on Admit: 2=Moderate VENITA RUBALCAVA MD Jan 08, 2020 11:20
[2020-01-08] MEDS ORDERED: ATOR40TA PO (11:30)
[2020-01-08] MEDS ORDERED: CLOP75TA28 PO (11:30)
--- NOTE | 2020-01-08 11:37 | D/C HH Face to Face Order ---
D/C Face to Face Orders Instructions for Patient [facility], Patient Instructions/FollowUp: Please continue to take your medications as written. Please follow up with your primary care doctor to follow up this hospital stay. Physician to follow Patient: Dr Preciado Discharge Diet for Home: Cardiac Diet Patient Data-Allergies,Ht & Wt Patient Allergies: Coded Allergies: No Known Drug Allergies (Unverified , 06/21/19) Height (Feet): 5 Height (Inches): 4.00 Weight (Pounds): 146 Weight (Ounces): 0.0 Home Health Need/Face to Face Date of Face to Face: Jan 08, 2020 Clinical Findings: Unsteady gait I have seen Pt vygt-mp-qzus: Yes Discharged To: Home Diagnosis/Conditions: Subacute CVA Patient is Homebound due to: [place] fall risk due to instabilty Homebound Status Due to the above stated illness, injury or surgical procedure (medical condition or diagnosis) and associated clinical findings, the patient is homebound because of his/her inability to leave home except with aid of a supportive device and/or person AND leaving the home requires a considerable and taxing effort or is medically contraindicated. Pt req the following assistanc: Aid of another person, Walker Home Health Nursing Orders Home Health Services Order: Delivery And Installation Subcontractor-Evaluate & Treat, Physical Therapy-Evaluate & Treat Home Health Infusion Therapy Line Start Date: Jan 07, 2020 Therapy Orders Therapy Orders: OT (must have SN or PT order), Physical Therapy Therapy Specific Orders: Eval assistive deivces, Teach strategies/cognitive deficits, Teach enviro modifications/safety, Gait training, Increase s trength/endurance Certify Stmt I certify that this patient is under my care and that I, a nurse practitioner or a physician; a retail loan originator assistant working with me, had a face to face encounter that - meets the physician face to face encounter requirements with this patient as dated. VENITA RUBALCAVA MD Jan 08, 2020 11:37
[2020-01-08 12:00] VITALS: BP 112/67
--- NOTE | 2020-01-08 12:45 | NUR ---
WILLIAM FINALIZED DISCHARGE PLAN: Patient is dismissing to home today with new need of home health care for Physical and Occupational therapies. Choice's given to patient et daughter at bedside. They have elected [facility] for their provider. Referral faxed et called. They will call and set up a time to come and visit the patient. They will not be able to start until next week however they are the only Home Health Care agency that services the area and has therapy availability. F/U with patient and daughter on the above information. No further needs or concerns voiced at this time. Addendum: 01/08/20 at 1317 by CHARLEEN ROSENBERG RN Update: Patient et daughter have changed their mind about home health care and would like to cancel the referral. Updated [facility].
[2020-01-08 14:00] VITALS: BP 112/67
--- NOTE | 2020-01-08 14:28 | Physical Therapy Evaluation ---
PT Evaluation-General Medical Diagnosis Admission Date Jan 07, 2020 at 14:42 Medical Diagnosis: CVA Onset Date: Jan 07, 2020 Therapy Diagnosis Therapy Diagnosis: Weakness Height/Weight Height (Feet): 5 Height (Inches): 4.00 Weight (Pounds): 146 Weight (Ounces): 0.0 Precautions Precautions/Isolations: Fall Prevention, Standard Precautions Weight Bear Status Right Lower Extremity: Right Weight Bearing/Tolerated Left Lower Extremity: Left Weight Bearing/Tolerated Referral Physician: Joel Reason for Referral: Evaluation/Treatment Medical History Pertinent Medical History: CAD, CVA, DM, HTN, [place], PVD Current History Admitted to [facility] with reports of dizziness over the past few days. Social History Home: Single Level Current Living Status: Alone Entry Into Home: Stairs Without Railing PT Steps Into Home: 2 Daughters live nearby and check on him frequently; assist with meals and c leaning. Prior Prior Level of Function SCALE: Activities may be completed with or without assistive devices. 1-Arnwbcnjav-hguqmoy completes the activity by him/herself with no assistance from a helper. 5-Set-up or Clean-up Assistance-helper sets up or cleans up; patient completes activity. [place] assists only prior to or following the activity. 4-Supervision or Touching Assistance-helper provides verbal cues and/or touching/steadying and/or contact guard assistance as patient completes activity. Assistance may be provided throughout the activity or intermittently. 3-Partial/Moderate Assistance-helper does LESS THAN HALF the effort. [place] lifts, holds or supports trunk or limbs, but provides less than half the effort. 2-Substantial/Maximal Assistance-helper does MORE THAN HALF the effort. [place] lifts or holds trunk or limbs and provides more than half the effort. 1-Hfgpfymtu-tfvoqm does ALL the effort. Patient does none of the effort to complete the activity. Or, the assistance of 2 or more helpers is required for the patient to complete the activity. If activity was not attempted, code reason: 7-Patient Refused. 9-Not Applicable-not attempted and the patient did not perform the activity before the current illness, exacerbation or injury. 10-Not Attempted due to Environmental Limitations-(lack of equipment, weather restraints, etc.). 88-Not Attempted due to Medical Conditions or Safety Concerns. Bed Mobility: 6 Transfers (B,C,W/C): 6 Gait: 6 (no AD) Stairs: 6 Wheelchair Mobility: 9 Indoor Mobility (Ambulation): Independent Stairs: Independent still drives. PT Evaluation-Current Subjective Reports he is feeling better. Reports he hopes to go home today. Daughter present and reports she feels he is at baseline and feels he could manage at home as well. Agrees to PT. Pain Numeric Pain Scale: 0-No Pain Location: No Pain Reported Objective Patient Orientation: Person, Place, Time, Situation ROM/Strength ROM Lower Extremities WFL Strength Lower Extremities WFL Integumentary/Posture Integumentary intact Bowel Incontinence: No Bladder Incontinence: No Posture symmetrical; WNL for stated age Neuromuscular (Tone, Coordination, Reflexes) no noted functional deficit Sensory Vision: Functional Hearing: Hearing Aid/Aides Hand Dominance: Right Sensation Right Lower Extremit: Intact Sensation Left Lower Extremity: Intact Transfers Roll Left to Right (QC): 6 Sit to Lying (QC): 6 Lying to Sitting/Side of Bed(Q: 6 Sit to Stand (QC): 6 Chair/Jzq-pv-Upsqu Xfer(QC): 6 Toilet Transfer (QC): 6 Gait Does the Patient Walk?: Yes Mode of Locomotion: Walk Anticipated Mode of Locomotion: Walk Walk 10 feet (QC): 6 Walk 50 ft with 2 Turns(QC): 6 Walk 150 ft (QC): 6 Gait Assistive Device: None Comments/Gait Description Pt walks with a toe in pattern; tends to walk fast; no trae LOB episodes. Wheelchair Training Does the Pt Use a Wheelchair?: No Stairs 4 Steps (QC): 5 (used the handrail; reciprocal) Balance Sitting Static: Normal Sitting Dynamic: Normal Standing Static: Good Standing Dynamic: Good Treatment Functional gait training; training on stairs; safety education. Assessment/Needs Pt presents post acute admit. Slightly unsteady with gait but no assist needed. Pt would benefit from skilled therapy services on an outpt or [facility] level to address functional balance and safety to reduce fall risk. Rehab Potential: Good PT [employer] Member Goals [employer] Member Goals PT Skilled Nursing Goals Time Frame: Jan 10, 2020 Pt to demonstrate improved safety awareness with functional transfers. PT Plan Problem List Problem List: Activity Tolerance, Balance, Gait Treatment/Plan Treatment Plan: Continue Plan of Care Treatment Plan: Functional Activity Reyes, Gait, Safety Treatment Duration: Jan 10, 2020 Frequency: 5 times per week Estimated Hrs Per Day: .5 hour per day Patient and/or Family Agrees t: Yes Safety Risks/Education Patient Education: Gait Training, Safety Issues Teaching Recipient: Patient, Family Teaching Methods: Discussion Response to Teaching: Reinforcement Needed Time/GCodes Time In: 1100 Time Out: 1129 Total Billed Treatment Time: 29 Total Billed Treatment visit EVM 15 Gt 14 ABDOULAYE LEE PT Jan 08, 2020 14:28
== END 2020-01-08 14:00 | disposition home or self-care (01) | DRG 65 ==
LOC: EDUNIT# 11:50 → ER 11:51 → 4TH 14:42
PROVIDERS: ADMIT Family Medicine; ATTEND Family Medicine
DX: I62.9 Nontraumatic intracranial hemorrhage, unspecified (principal); I69.351 Hemiplegia and hemiparesis following cerebral infarction affecting right dominant side; R47.01 Aphasia; R26.81 Unsteadiness on feet; I69.398 Other sequelae of cerebral infarction; R42 Dizziness and giddiness; I12.9 Hypertensive chronic kidney disease with stage 1 through stage 4 chronic kidney disease, or unspecified chronic kidney disease; E11.22 Type 2 diabetes mellitus with diabetic chronic kidney disease; Z66 Do not resuscitate; I25.10 Atherosclerotic heart disease of native coronary artery without angina pectoris; N18.3 Chronic kidney disease, stage 3 (moderate); C67.9 Malignant neoplasm of bladder, unspecified; N40.0 Benign prostatic hyperplasia without lower urinary tract symptoms; K21.9 Gastro-esophageal reflux disease without esophagitis; K44.9 Diaphragmatic hernia without obstruction or gangrene; E78.00 Pure hypercholesterolemia, unspecified; M19.91 Primary osteoarthritis, unspecified site; I25.2 Old myocardial infarction; Z79.84 Long term (current) use of oral hypoglycemic drugs; Z87.891 Personal history of nicotine dependence; Z90.89 Acquired absence of other organs
CPT/HCPCS: 36415; 70450; 71045; 80048; 80053; 80061; 81000; 82962; 83605; 85027; 86141; 87040

== ENCOUNTER 2020-12-02 11:56 | Emergency (ER) | payer OTHER, MEDICARE ==
[~2020-12-02] VITALS: Ht 167.7 cm; Wt 60.8 kg
[~2020-12-02 11:56] MED LIST changes: +ATOR40TA PO; +CLOP75TA28 PO; -PANT40TA3 PO; +PANT40TA52 PO
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
[2020-12-02 13:32] VITALS: BP 130/90
== END 2020-12-02 13:32 | disposition home or self-care (01) ==
LOC: EDUNIT# 11:56 → ER 11:58
DX: S51.812A Laceration without foreign body of left forearm, initial encounter (principal); I25.2 Old myocardial infarction; I10 Essential (primary) hypertension; E78.00 Pure hypercholesterolemia, unspecified; E11.9 Type 2 diabetes mellitus without complications; I25.10 Atherosclerotic heart disease of native coronary artery without angina pectoris; K21.9 Gastro-esophageal reflux disease without esophagitis; Z86.73 Personal history of transient ischemic attack (TIA), and cerebral infarction without residual deficits; Z87.891 Personal history of nicotine dependence; Z79.82 Long term (current) use of aspirin; Z79.899 Other long term (current) drug therapy; Z79.01 Long term (current) use of anticoagulants; V89.2XXA Person injured in unspecified motor-vehicle accident, traffic, initial encounter
CPT/HCPCS: 70450; 72125

== ENCOUNTER → 2021-08-13 | Outpatient (CLI) | payer MEDICARE ==
[~2021-08-13] MED LIST changes: -SULF1TAB35 PO; +SULF1TAB38 PO
== END ==
LOC: CARD 09:30
PROVIDERS: ATTEND Nurse Practitioner Family
DX: I51.7 Cardiomegaly (principal); I34.0 Nonrheumatic mitral (valve) insufficiency; I25.5 Ischemic cardiomyopathy
CPT/HCPCS: 93306

== ENCOUNTER → 2023-03-24 | Outpatient (CLI) | payer MEDICARE ==
[~2023-03-24] MED LIST changes: +REGADENOSON 0.4 MG/5 ML SYR IV ONE
[2023-03-24] MEDS: CATHETER FLUSH 10 ML SYR IVP PRN ×2 (07:45→09:26)
[2023-03-24 09:25] VITALS: BP 150/93
--- NOTE | 2023-03-28 16:15 | STRESS TEST ---
DATE OF SERVICE: 03/24/2023 RESTING AND POST REGADENOSON TECHNETIUM-99M TETROFOSMIN SPECT CT IMAGING ORDERING PHYSICIAN: Dr. Lius. PRIMARY PHYSICIAN: Dr. Preciado. CLINICAL DIAGNOSIS: Coronary artery disease. Baseline images were carried out after injection of 10.04 mCi of technetium-99m tetrofosmin. This was followed by 0.4 mg regadenoson and 28 mCi of technetium-99m tetrofosmin for stress imaging. The electrocardiogram showed sinus rhythm with isolated premature ventricular contractions. It did not change significantly with regadenoson infusion. The patient tolerated the procedure well. Review of images at rest and following stress indicates a predominantly fixed apical perfusion defect, which appears large. Gated images show apical akinesis to dyskinesis and there is mild global hypokinesis of the rest of the wall. Left ventricular ejection fraction is calculated to be 39%. Left ventricular end-diastolic volume is 115 mL. TID is absent (1.08). CONCLUSIONS: 1. The study is indicative of a large apical infarction with minimal misael-infarct ischemia. 2. Apical akinesis to dyskinesis. 3. Left ventricular ejection fraction 39%. 4. Mild to moderate cardiomegaly. Job ID: [id number] DocumentID: [id number] Dictated Date: 03/28/2023 13:32:10 Power Technician Date: 03/28/2023 16:12:00 Dictated By: DORCAS LUIS MD; KOSTAS; FACP; FACC;
== END ==
LOC: CARD 07:06
PROVIDERS: ATTEND Internal Medicine Cardiovascular Disease
DX: I25.10 Atherosclerotic heart disease of native coronary artery without angina pectoris (principal)
CPT/HCPCS: 78452; 93017; A9502

== ENCOUNTER 2023-04-01 19:21 | Emergency (ER) | payer MEDICARE ==
[~2023-04-01 19:21] MED LIST changes: -REGADENOSON 0.4 MG/5 ML SYR IV ONE
[2023-04-01] MEDS ORDERED: NS (IVPB) 100 ML 0 ML ONE (19:37)
[2023-04-01] MEDS ORDERED: NORMAL SALINE (EXCEL) 250 ML 250 ML ONE (19:38)
[2023-04-01] MEDS ORDERED: AMIODARONE INJ 150 MG/3 ML VIAL IV ONE ×2 (19:38→19:39)
[2023-04-01] MEDS ORDERED: AMIODARONE IV ONE (19:38)
[2023-04-01] MEDS ORDERED: NS IV 1000 ML 1,000 ML IV SCH ×3 (19:45→20:45)
[2023-04-01] MEDS ORDERED: NS IV ONE (19:45)
[2023-04-01] MEDS ORDERED: LIDOCAINE UROJET 2% GEL 10 ML PKG TOP ONE (19:45)
[2023-04-01] MEDS ORDERED: AMIODARONE FOR DRIP 450 MG in NORMAL SALINE (EXCEL) 250 ML 250 ML IV SCH (19:45)
[2023-04-01] MEDS ORDERED: CEFEPIME INJECTION 1,000 MG in NS (IVPB) 50 ML 50 ML IV ONE (19:45)
[2023-04-01] MEDS ORDERED: AMIODARONE FOR BOLUS IV ONE (19:45)
[2023-04-01 19:58] LABS: BASOPHILS # (AUTO) 0.1 10^3/uL (0.0-0.1); BASOPHILS % (AUTO) 1 % (0-10); EOSINOPHILS # (AUTO) 0.2 10^3/uL (0.0-0.3); EOSINOPHILS % (AUTO) 2 % (0-10); HEMATOCRIT 39 % (40-54); HEMOGLOBIN 12.9 g/dL (13.3-17.7); LYMPHOCYTES # (AUTO) 1.6 10^3/uL (1.0-4.0); LYMPHOCYTES % (AUTO) 13 % (12-44); MEAN CORPUSCULAR HEMOGLOBIN 32 pg (25-34); MEAN CORPUSCULAR HGB CONC 33 g/dL (32-36); MEAN CORPUSCULAR VOLUME 95 fL (80-99); MEAN PLATELET VOLUME 10.2 fL (9.0-12.2); MONOCYTES # (AUTO) 1.3 10^3/uL (0.0-1.0); MONOCYTES % (AUTO) 11 % (0-12); NEUTROPHILS # (AUTO) 9.1 10^3/uL (1.8-7.8); NEUTROPHILS % (AUTO) 74 % (42-75); PLATELET COUNT 294 10^3/uL (130-400); WHITE BLOOD COUNT 12.3 10^3/uL (4.3-11.0)
[2023-04-01] MEDS ORDERED: ENOXAPARIN 60 MG/0.6 ML SYRINGE SC ONE (20:00)
[2023-04-01] MEDS ORDERED: CEFEPIME 1 GM/10 ML VIAL ONE (20:00)
[2023-04-01] MEDS ORDERED: NOREPINEPHRINE 8 MG/250 ML 250 ML IV SCH (20:00)
[2023-04-01] MEDS ORDERED: NOREPINEPHRINE 8 MG/250 ML 0 ML IV ONE (20:01)
[2023-04-01 20:14] LABS: CLARITY,URINE CLEAR; COLOR,URINE YELLOW; GLUCOSE, URINE (UA) NEGATIVE (NEGATIVE); KETONES,URINE TRACE (NEGATIVE); NITRITE,URINE NEGATIVE (NEGATIVE); PH,URINE 5 (5-9); PROTEIN,URINE 1+ (NEGATIVE)
--- NOTE | 2023-04-01 20:14 | Diagnostic Imaging Report ---
INDICATION: Substernal chest pain and weakness Portable chest 8:10 PM Heart size and pulmonary vascularity are normal. Lungs are clear. There are no effusions or pneumothoraces. IMPRESSION: No acute abnormalities in the chest. Dictated by: Dictated on workstation # [id number]
[2023-04-01 20:15] LABS: PROTHROMBIN TIME PATIENT 13.6 SEC (12.2-14.7)
[2023-04-01 20:15] LABS: BACTERIA,URINE FEW /HPF; BILIRUBIN,URINE 1+ (NEGATIVE); LEUKOCYTE ESTERASE ,URINE NEGATIVE (NEGATIVE)
[2023-04-01 20:18] LABS: FIBRIN DEGRADATION PRODUCTS 1.52 UG/ML (0.00-0.49)
[2023-04-01 20:32] LABS: ALANINE AMINOTRANSFERASE 14 U/L (0-55); ALBUMIN 4.1 GM/DL (3.2-4.5); ALKALINE PHOSPHATASE 67 U/L (40-136); BILIRUBIN,TOTAL 0.5 MG/DL (0.1-1.0); BUN/CREATININE RATIO 16; CALCIUM 8.9 MG/DL (8.5-10.1); CARBON DIOXIDE 19 MMOL/L (21-32); CHLORIDE 107 MMOL/L (98-107); CREATININE SERUM 1.84 MG/DL (0.60-1.30); GFR ESTIMATED 35; GLUCOSE 171 MG/DL (70-105); POTASSIUM 4.4 MMOL/L (3.6-5.0); SODIUM 139 MMOL/L (135-145)
[2023-04-01 20:57] LABS: CREATINE KINASE MB 2.6 NG/ML (<6.6)
--- NOTE | 2023-04-01 21:16 | ED General ---
General Chief Complaint: Cardiac/General Problems Stated Complaint: INFECTION Source of Information: Patient (LIMITED HISTORIAN), Other (DAUGHTER) History of Present Illness Date Seen by Provider: Apr 01, 2023 Time Seen by Provider: 19:37 Initial Comments PT ARRIVES VIA POV FROM HOME WITH DAUGHTER PT IS HERE FOR "POSSIBLE INFECTION" HE HAD ROUTINE APPOINTMENT WITH DR. DEMARCO ON MONDAY, AND HAD ROUTINE LAB DONE ON MONDAY--WAS CALLED AND TOLD THAT HIS "INFECTION LEVEL WAS HIGH" AND THAT IF HE STARTED FEELING BAD, TO GO TO ER PT STATES FOR THE LAST FEW DAYS HE HAS FELT WEAK, SHORT OF BREATH AND DIZZY HE HAS HAD A COUPLE OF UNWITNESSED "FALLS" --HE DENIES ANY INJURIES FROM THESE INCIDENTS. HE DENIES FEVER/SWEATS/CHILLS DENIES CHEST PAIN DENIES COUGH DENIES SWELLING IN LEGS/FEET OR PAIN IN [place] DENIES PAIN ANYWHERE DENIES GI SYMPTOMS NO URINARY SYMPTOMS HAS BEEN EATING AND DRINKING NORMALLY. DAUGHTER STATES NO INCREASED CONFUSION PT HAS HISTORY OF PRIOR CVA, HTN, HYPERLIPIDEMIA, DIABETES, CT 1991--NO INTERVENTION PT CONTINUES TO SMOKE AT LEAST 1/2 PPD--HAS SMOKED CIGARETTES, CIGARS AND PIPE; DENIES ETOH OR DRUG USE PCP: DR. DEMARCO Allergies and Home Medications Allergies Coded Allergies: No Known Drug Allergies (Unverified , 06/21/19) Patient Home Medication List Acetaminophen (Tylenol) 325 Mg Tablet, 650 MG PO Q8H PRN for PAIN-MILD (1-4), (Reported) Entered as Reported by: RONALD VELASQUEZ on 11/28/19 1025 Aspirin (Aspirin) 325 Mg Tablet, 325 MG PO HS, (Reported) Entered as Reported by: CHUCK JOHNSON on 11/20/19 1215 Atorvastatin Calcium (Lipitor) 40 Mg Tablet, 40 MG PO HS Prescribed by: VENITA RUBALCAVA on 01/08/20 1130 Clopidogrel Bisulfate (Clopidogrel) 75 Mg Tablet, 75 MG PO DAILY Prescribed by: VENITA RUBALCAVA on 01/08/20 1130 Glimepiride (Glimepiride) 1 Mg Tablet, 1 MG PO DAILY, (Reported) Entered as Reported by: CHUCK JOHNSON on 08/29/18 1455 Losartan Potassium (Losartan Potassium) 25 Mg Tablet, 12.5 MG PO DAILY, (Reported) Entered as Reported by: MARA HALLMAN on 06/23/15 1252 Lutein/Zeaxanthin (Lutein-Zeaxanthin 25-5 mg Sfgl) 1 Each Capsule, 1 EACH PO HS, (Reported) Entered as Reported by: CHUCK JOHNSON on 08/11/17 1246 Pantoprazole Sodium (Pantoprazole Sodium) 40 Mg Tablet.dr, 40 MG PO HS, (Reported) Entered as Reported by: MARA HALLMAN on 06/23/15 1252 Review of Systems Review of Systems Constitutional: see HPI; No chills, No diaphoresis; dizziness; No fever; malaise, weakness EENTM: no symptoms reported Respiratory: see HPI; No cough; short of breath Cardiovascular: see HPI; No chest pain, No edema, No palpitations Gastrointestinal: no symptoms reported Genitourinary: no symptoms reported Musculoskeletal: no symptoms reported Skin: no symptoms reported Psychiatric/Neurological: No Symptoms Reported Hematologic/Lymphatic: No Symptoms Reported Immunological/Allergic: no symptoms reported Past Vmnwywx-Lwtvtu-Emggwd Hx Patient Social History Tobacco Use?: Yes Tobacco type used: Cigars, Cigarettes, Pipe Smoking Status: Current Everyday Smoker Substance use?: No Alcohol Use?: No Immunizations Up To Date Tetanus Booster (TDap): More than 5yrs PED Vaccines UTD: No Seasonal Allergies Seasonal Allergies: No Past Medical History Surgeries: Yes (CATARACTS, LEFT RCR, T, LAP UMBILICAL HERNIA, R CAROTID, TURBT X3) Abdominal, Bladder Surgery, Ear Surgery, Orthopedic, Tonsillectomy, Vascular Surgery Respiratory: No Currently Using CPAP: No Currently Using BIPAP: No Cardiac: Yes (CT 1991, CAROTID STENOSIS) Coronary Artery Disease, Heart Attack, High Cholesterol, Hypertension, Peripheral Vascular Neurological: Yes (2012 AND 2019) Stroke Reproductive Disorders: No Sexually Transmitted Disease: No HIV/AIDS: No Genitourinary: Yes (hx of BLADDER TUMOR/CANCER) Benign Prostatic Hyperpl, Kidney Stones Gastrointestinal: Yes Gastroesophageal Reflux, Polyps, Hiatal Hernia Musculoskeletal: Yes (OSTEOARTHRITIS) Arthritis Endocrine: Yes Diabetes, Non-Insulin dep HEENT: Yes (GLASSES, DENTURES) Cataract Loss of Vision: Denies Hearing Impairment: Hard of Hearing 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, Skin Did You Recieve Any Treatments: Yes What Type of Treatment Did You: Surgical Intervention Psychosocial: No Integumentary: Yes (right ear lesion) Blood Disorders: No Adverse Reaction/Blood Tranf: No (N/A) Family Medical History No Pertinent Family Hx SOCIAL HISTORY: -SMOKES AT LEAST 1/2 PPD--CIGARETTES, CIGARS AND PIPE -DENIES ETOH USE -DENIES DRUG USE 1991--NO INTERVENTION CVA WITH LEFT SIDE WEAKNESS--NO TREATMENT Physical Exam Vital Signs Vital Signs - First Documented 04/01/23 04/01/23 19:31 20:30 Temp 37.0 Pulse 127 Resp 20 B/P (MAP) 97/68 (78) Pulse Ox 96 O2 Delivery Room Air O2 Flow Rate 2.00 Capillary Refill : Height, Weight, BMI Height: 5'4.00" Weight: 146lbs. 0.0oz. 66.641993fm; 21.00 BMI Method: General Appearance: No Apparent Distress, WD/WN HEENT: PERRL/EOMI Neck: Normal Inspection; No JVD Respiratory: Normal Breath Sounds, No Accessory Muscle Use, No Respiratory Distress Cardiovascular: No Edema, No JVD, No Murmur, Normal Peripheral Pulses, Tachycardia Gastrointestinal: Non Tender, Soft Back: No CVA Tenderness Extremity: Normal Capillary Refill, Normal Inspection, Normal Range of Motion, Non Tender, No Calf Tenderness, No Pedal Edema Neurologic/Psychiatric: Alert, Oriented x3 (BUT SOME LIMITED MEMORY), No Motor/Sensory Deficits, Normal Mood/Affect, rn charge II-XII Norm as Tested Skin: Normal Color, Warm/Dry Focused Exam Lactate Level 04/01/23 19:35: Lactic Acid Level 2.95*H Lactic Acid Level Laboratory Tests Test 04/01/23 19:35 Lactic Acid Level 2.95 MMOL/L (0.50-2.00) *H Progress/Results/Core Measures Suspected Sepsis SIRS Temperature: Pulse: Respiratory Rate: Laboratory Tests 04/01/23 19:35: White Blood Count 12.3H Blood Pressure 125 /94 Mean: 104 04/01/23 19:35: Lactic Acid Level 2.95*H Laboratory Tests 04/01/23 19:35: Creatinine 1.84H, INR Comment 1.0, Platelet Count 294, Total Bilirubin 0.5 Results/Orders Lab Results Laboratory Tests Test 04/01/23 19:35 04/01/23 19:52 04/01/23 20:32 Range/Units White Blood Count 12.3 H 4.3-11.0 10^3/uL Red Blood Count 4.09 L 4.30-5.52 10^6/uL Hemoglobin 12.9 L 13.3-17.7 g/dL Hematocrit 39 L 40-54 % Mean Corpuscular Volume 95 80-99 fL Mean Corpuscular Hemoglobin 32 25-34 pg Mean Corpuscular Hemoglobin Concent 33 32-36 g/dL Red Cell Distribution Width 13.4 10.0-14.5 % Platelet Count 294 130-400 10^3/uL Mean Platelet Volume 10.2 9.0-12.2 fL Immature Granulocyte % (Auto) 0 % Neutrophils (%) (Auto) 74 42-75 % Lymphocytes (%) (Auto) 13 12-44 % Monocytes (%) (Auto) 11 0-12 % Eosinophils (%) (Auto) 2 0-10 % Basophils (%) (Auto) 1 0-10 % Neutrophils # (Auto) 9.1 H 1.8-7.8 10^3/uL Lymphocytes # (Auto) 1.6 1.0-4.0 10^3/uL Monocytes # (Auto) 1.3 H 0.0-1.0 10^3/uL Eosinophils # (Auto) 0.2 0.0-0.3 10^3/uL Basophils # (Auto) 0.1 0.0-0.1 10^3/uL Immature Granulocyte # (Auto) 0.0 0.0-0.1 10^3/uL Prothrombin Time 13.6 12.2-14.7 SEC INR Comment 1.0 0.8-1.4 Activated Partial Thromboplast Time 33 24-35 SEC D-Dimer 1.52 H 0.00-0.49 UG/ML Sodium Level 139 135-145 MMOL/L Potassium Level 4.4 3.6-5.0 MMOL/L Chloride Level 107 98-107 MMOL/L Carbon Dioxide Level 19 L 21-32 MMOL/L Anion Gap 13 5-14 MMOL/L Blood Urea Nitrogen 29 H 7-18 MG/DL Creatinine 1.84 H 0.60-1.30 MG/DL Estimat Glomerular Filtration Rate 35 BUN/Creatinine Ratio 16 Glucose Level 171 H 70-105 MG/DL Lactic Acid Level 2.95 *H 0.50-2.00 MMOL/L Calcium Level 8.9 8.5-10.1 MG/DL Corrected Calcium 8.8 8.5-10.1 MG/DL Magnesium Level 3.0 H 1.6-2.4 MG/DL Total Bilirubin 0.5 0.1-1.0 MG/DL Aspartate Amino Transf (AST/SGOT) 18 5-34 U/L Alanine Aminotransferase (ALT/SGPT) 14 0-55 U/L Alkaline Phosphatase 67 40-136 U/L Total Creatine Kinase 97 30-200 U/L Creatine Kinase MB 2.6 <6.6 NG/ML Myoglobin 152.4 H 10.0-92.0 NG/ML Troponin I < 0.028 <0.028 NG/ML C-Reactive Protein High Sensitivity 0.25 0.00-0.50 MG/DL B-Type Natriuretic Peptide 380.3 H <100.0 PG/ML Total Protein 7.0 6.4-8.2 GM/DL Albumin 4.1 3.2-4.5 GM/DL Amylase Level 43 25-125 U/L Lipase 24 8-78 U/L Thyroid Stimulating Hormone (TSH) 3.08 0.35-4.94 UIU/ML Urine Color YELLOW Urine Clarity CLEAR Urine pH 5 5-9 Urine Specific [place] 1.020 1.016-1.022 Urine Protein 1+ H NEGATIVE Urine Glucose (UA) NEGATIVE NEGATIVE Urine Ketones TRACE H NEGATIVE Urine Nitrite NEGATIVE NEGATIVE Urine Bilirubin 1+ H NEGATIVE Urine Urobilinogen 0.2 < = 1.0 MG/DL Urine Leukocyte Esterase NEGATIVE NEGATIVE Urine RBC (Auto) NEGATIVE NEGATIVE Urine RBC NONE /HPF Urine WBC NONE /HPF Urine Squamous Epithelial Cells 5-10 /HPF Urine Crystals NONE /LPF Urine Bacteria FEW H /HPF Urine Casts NONE /LPF Urine Mucus SMALL H /LPF Urine Culture Indicated NO Influenza Type A (RT-PCR) Not Detected Not Detecte Influenza Type B (RT-PCR) Not Detected Not Detecte SARS-CoV-2 RNA (RT-PCR) Not Detected Not Detecte My Orders Orders - ELDON PATEL DO Amiodarone For Drip (Amiodarone For Drip (04/01/23 19:45) Amiodarone For Bolus (Amiodarone For Eveline (04/01/23 19:45) Amiodarone For Bolus (Amiodarone For Eveline (04/01/23 19:39) Ekg Tracing (04/01/23 19:43) Catheter(Urinary) Insert & Ass 03,15 (04/01/23 19:43) Monitor-Rhythm Ecg Trace Only (04/01/23 19:43) Lidocaine 2% (Urojet) (Lidocaine 2% (Uro (04/01/23 19:45) Ekg Tracing (04/01/23 19:43) Ekg Tracing (04/01/23 19:43) Ekg Tracing (04/01/23 19:43) Enoxaparin Injection (04/01/23 20:00) Norepinephrine 8 Mg/250 Ml (Norepinephri (04/01/23 20:00) Ed Iv/Invasive Line Start (04/01/23 19:56) Ed Iv/Invasive Line Start (04/01/23 19:56) Ekg Tracing (04/01/23 19:57) Amylase (04/01/23 20:11) Creatine Kinase (04/01/23 20:11) Creatine Kinase Mb (04/01/23 20:11) Myoglobin Serum (04/01/23 20:11) Lipase (04/01/23 20:12) Ed Iv/Invasive Line Start (04/01/23 20:13) Ns Iv 1000 Ml (Ns Iv 1000 Ml) (04/01/23 20:15) Norepinephrine 8 Mg/250 Ml (Norepinephri (04/01/23 20:01) Ed Iv/Invasive Line Start (04/01/23 20:42) Ns Iv 1000 Ml (Ns Iv 1000 Ml) (04/01/23 20:45) Medications Given in ED Current Medications Medications Dose Ordered Sig/Meghan Route Start Time Stop Time Status Last Admin Dose Admin Amiodarone HCl 300 mg/Sodium Chloride 106 ml @ 600 mls/hr ONCE ONCE IV 04/01/23 19:45 04/01/23 19:55 DC 04/01/23 19:41 600 MLS/HR Cefepime HCl 1000 mg/Sodium Chloride 50 ml @ 100 mls/hr ONCE ONCE IV 04/01/23 19:45 04/01/23 20:14 DC 04/01/23 20:08 100 MLS/HR Enoxaparin Sodium 60 mg ONCE ONCE SC 04/01/23 20:00 04/01/23 20:01 DC 04/01/23 20:09 60 MG Vital Signs/I&O 04/01/23 04/01/23 04/01/23 19:31 19:41 20:30 Temp 37.0 Pulse 127 Resp 20 B/P (MAP) 97/68 (78) 125/94 Pulse Ox 96 O2 Delivery Room Air Nasal Cannula O2 Flow Rate 2.00 Capillary Refill : Blood Pressure Mean: 104 Progress Note : Progress Note ON ARRIVAL, PT NOTED TO BE IN V-TACH--PT AWAKE, TALKING AND DENIES ANY SYMPTOMS. PT IS NOT DIAPHORETIC OR DYSPNEIC OR IN ANY DISCOMFORT OR DISTRESS VITALS ON ARRIVAL: TEMP GIVEN: -AMIODARONE BOLUS AND DRIP -LOVENOX -CEFEPIME--FOR PRESENTING COMPLAINT OF "INFECTION" -IV FLUIDS LABS: -CBC -CMP -MG -AMYLASE/LIPASE -TROPONIN -BNP -PT/PTT/INR -D-DIMER -SED RATE -CRP -TSH -UA -COVID/FLU MULTIPLE EKG'S DONE CXR--NO ACUTE PROCESS PT IMMEDIATELY CONVERTED TO NORMAL SINUS RHYTHM WITH AMIODARONE BOLUS, AND MAINTAINED ON AMIODARONE DRIP PT HAD NO FURTHER ARRHYTHMIAS DURING ER STAY, AND REMAINED IN NORMAL SINUS RHYTHM PT REMAINED IN MID 90'S-100 SYSTOLIC. LEVOPHED HELD DISCUSSED CODE STATUS WITH DAUGHTER AND PT STATES HE IS DNR/DNI Critical Care Note Critical Care Start Time: 19:37 Departure Communication (Admissions) THERE IS NO DRAMA DIRECTOR HERE THIS WEEKEND. THERE IS ALSO NO GROUND [facility]SP[facility] AVAILABLE [facility]--CALLED [place], NO BEDS 1950--CALLED [facility]--SPOKE WITH DR. JEAN, HOOP MACHINE OPERATOR --HE ADVISES TO CALL BACK WHEN LAB IS BACK 2046--CALLED [facility], WILL CALL BACK 2056--SPOKE WITH DR. ESPINOZA/DR. GABRIEL, HOOP MACHINE OPERATOR, ACCEPTS PT FOR ADMIT. HE IS AGREEABLE WITH HOLDING LEVOPHED AT THIS TIME AND DOES NOT HAVE ANY FURTHER REC OMMENDATIONS AT THIS TIME. 2229--[facility] HERE FOR TRANSPORT Impression Primary Impression: Sustained ventricular tachycardia Disposition: XFER SHT-TRM HOSP Condition: Improved Transfer Transfer Reason: Exceeds level of care Transfer Facility: [facility] Method of Transfer: Air ([facility] FL[facility]) Departure-Patient Inst. Referrals: ROSANGELA DEMARCO MD (PCP/Family) Primary Care Physician ELDON PATEL DO Apr 01, 2023 21:16
[2023-04-01 22:51] VITALS: BP 100/78
== END 2023-04-01 22:45 | disposition short-term general hospital (02) ==
LOC: EDUNIT# 19:21 → ER 19:23
DX: I47.20 Ventricular tachycardia, unspecified (principal); F17.210 Nicotine dependence, cigarettes, uncomplicated; F17.290 Nicotine dependence, other tobacco product, uncomplicated; Z20.822 Contact with and (suspected) exposure to COVID-19
CPT/HCPCS: 36415; 51702; 53620; 71045; 80053; 81000; 82150; 82550; 82553; 83605; 83690; 83735; 83874; 83880; 84443; 84484; 85025; 85379; 85610; 85730; 86141; 87040; 87088; 87636; 93005; 93041; 99291; 99292